=== PATIENT | female | born 1970 | race Hispanic/Latino ===

== ENCOUNTER 2016-10-18 17:09 | Inpatient (IN) | payer MEDICAID, OTHER ==
[2016-10-18] MEDS ORDERED: Multivitamin (MVI) 10 ML, Thiamine 100 MG, Folic Acid 1 MG in Sodium Chloride 0.9% 1,00... IV ONE (17:57)
[2016-10-18 18:18] LABS: PH,URINE 6.5 (4.7-8.0); URINE BILIRUBIN NEGATIVE (NEGATIVE); URINE BLOOD MODERATE (NEGATIVE); URINE GLUCOSE (UA) 100 mg/dL (NEGATIVE); URINE KETONE NEGATIVE (NEGATIVE); URINE LEUKOCYTE ESTERASE NEGATIVE Leu/uL (NEGATIVE); URINE PROTEIN TRACE mg/dL (<30 mg/dL); URINE UROBILINOGEN 0.2 E.U./dL (<1 E.U./dL)
[2016-10-18 18:19] LABS: URINE APPEARANCE CLEAR (CLEAR); URINE COLOR YELLOW (YELLOW)
[2016-10-18] MEDS ORDERED: Sodium Chloride 0.9% 1,000 ML IV STA (18:27)
[2016-10-18 18:33] LABS: URINE EPITHELIAL CELLS 0 - 2 /hpf (0-5); URINE WBC 0 - 2 /hpf (0-6)
[2016-10-18 18:37] LABS: BASO # 0.01 K/mm3 (0.0-2.0); BASO % 0.1 % (0.0-3.0); EOS % 0.1 % (1.5-5.0); GRAN # 5.57 (1.4-6.5); GRAN % 78.7 % (50.0-68.0); HEMATOCRIT 37.1 % (36.0-48.0); LYMPH # 1.2 (1.2-3.4); LYMPH % 17.3 % (22.0-35.0); MEAN CELL VOLUME 95.9 fl (80.0-105.0); MEAN CORPUSCULAR HEMOGLOBIN 34.4 pg (25.0-35.0); MEAN CORPUSCULAR HGB CONC 35.8 g/dl (31.0-37.0); MEAN PLATELET VOLUME 9.6 fl (7.0-11.0); MONO # 0.3 (0.1-0.6); MONO % 3.8 % (1.0-6.0); RED CELL DISTRIBUTION WIDTH 13.2 % (11.5-14.5); WHITE BLOOD COUNT 7.1 10^3/ul (4.5-11.0)
[2016-10-18 18:46] LABS: INR 0.93 (0.93-1.08)
[2016-10-18 18:48] LABS: ALB/GLOB RATIO 1.5 (1.1-1.8); ALKALINE PHOSPHATASE 138 U/L (38-126); ALT/SGPT 125 U/L (7-56); AST/SGOT 261 U/L (14-36); BILIRUBIN,TOTAL 0.8 mg/dL (0.2-1.3); BLOOD UREA NITROGEN 6 mg/dL (7-21); CARBON DIOXIDE 26 mmol/L (21-33); GFR AFRICAN-AMERICAN > 60; GLUCOSE,RANDOM 189 mg/dL (70-110); LIPASE 628 U/L (23-300); POTASSIUM 3.9 mmol/L (3.6-5.0); SODIUM 142 mmol/L (132-148); TOTAL PROTEIN 7.9 g/dL (5.8-8.3)
--- NOTE | 2016-10-18 19:07 | RAD ---
HISTORY: PES/ tachycardia . Technique: Single view portable semi erect @ 18:30. COMPARISON: No prior. FINDINGS: LUNGS: No active pulmonary disease. PLEURA: No significant pleural effusion identified, no pneumothorax apparent. CARDIOVASCULAR: Normal. OSSEOUS STRUCTURES: No significant abnormalities. VISUALIZED UPPER ABDOMEN: Normal. OTHER FINDINGS: None. IMPRESSION: No active disease.
--- NOTE | 2016-10-18 19:18 | ED PDOC ---
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 Pt c/o burn to right leg, states she spilled coffee on the leg 2 days ago. denies cp or sob. pt states she has been drinking alcohol for 2 weeks straight. pt states she hasnt been eating. denies dizziness or weakness. pt is c/o depression and SI. no vomiting/diarrhea. no other complaints. (Verona Decker) Past Medical History - Provider Review Nursing Documentation Reviewed: Yes - Travel History Have you recently traveled outside [place] w/in the past 3 mons?: No - Tetanus Immunization Tetanus Immunization: Unknown - Cardiac Hx Hypertension: Yes - Pulmonary Hx Respiratory Disorders: No - Neurological Hx Neurological Disorder: No - HEENT Hx HEENT Disorder: No - Renal Hx Renal Disorder: No - Endocrine/Metabolic Hx Endocrine Disorders: No - Hematological/Oncological Hx Blood Disorders: No - Integumentary Hx Dermatological Disorder: No - Musculoskeletal/Rheumatological Hx Musculoskeletal Disorders: No - Gastrointestinal Hx Gastrointestinal Disorders: No - Genitourinary/Gynecological Hx Genitourinary Disorders: No - Psychiatric Hx Psychophysiologic Disorder: No Hx Substance Use: No - Anesthesia Hx Anesthesia: No <Verona Decker - Last Filed: 10/18/16 20:19> Family/Social History - Physician Review Nursing Documentation Reviewed: Yes Family/Social History: Unknown Family HX Smoking Status: Unknown If Ever Smoked Hx Alcohol Use: Yes Frequency of alcohol use: Daily Hx Substance Use: No <Verona Decker - Last Filed: 10/18/16 20:19> Allergies/Home Meds <Verona Decker - Last Filed: 10/18/16 20:19> <Juan Wood - Last Filed: 10/18/16 21:51> Allergies/Adverse Reactions: Allergies Penicillins Allergy (Verified 10/18/16 17:52) PAIN Home Medications: Home Meds Medication Instructions Recorded Confirmed Clonazepam [Klonopin] 0.5 mg PO 2XW 10/18/16 10/18/16 Review of Systems - Review of Systems Constitutional: absent: Fatigue, Fevers Respiratory: absent: SOB, Cough Cardiovascular: absent: Chest Pain, Palpitations Gastrointestinal: Nausea. absent: Abdominal Pain, Diarrhea, Vomiting Genitourinary Female: absent: Dysuria, Frequency Musculoskeletal: absent: Arthralgias Skin: absent: Rash, Pruritis Neurological: absent: Headache, Dizziness Psychiatric: Anxiety, Depression, Suicidal Ideation <Verona Decker - Last Filed: 10/18/16 20:19> Physical Exam Vital Signs Reviewed: Yes Temperature: Afebrile Blood Pressure: Normal Pulse: Tachycardic Respiratory Rate: Normal Appearance: Positive for: Non-Toxic, Comfortable, Unkept, Cachectic Pain Distress: None Mental Status: Positive for: Alert and Oriented X 3 - Systems Exam Head: Present: Atraumatic Respiratory/Chest: Present: Clear to Auscultation Cardiovascular: Present: Peripheal Pulses Present, Tachycardic Abdomen: Present: Normal Bowel Sounds. No: Tenderness, Distention, Rebound, Guarding Upper Extremity: Present: Normal ROM Lower Extremity: Present: Normal ROM Skin: Present: Warm, Dry, Rashes (there is a blisterning burn noted to the medial aspect of the right thigh without surrounding erythema.) Psychiatric: Present: Alert, Oriented x 3 <Verona Decker - Last Filed: 10/18/16 20:19> Medical Decision Making <Verona Decker - Last Filed: 10/18/16 20:19> <Juan Wood - Last Filed: 10/18/16 21:51> ED Course and Treatment: 10/18/16 19:42 46yr old female with hx of etoh abuse. unkept, cachectic. Tachycardic. CBC platelets of 94 CBC glucose of 189 elevated LFTs Lipase elevated at 628 UA negative leukocytes UDS within normal limits Alcohol level 285 Tylenol level negative Salicylate level negative Chest x-ray shows no infiltrate or effusion EKG shows sinus tachycardia at [address] elevations pt given 2mg ativan IV, NS iv bolus given Banana bag given IV burn to right thigh; cleaned. bacitracin applied. tetanus updated. pt placed on 1:1 for SI pt still tachycardic, with elevated lfts, and elevated lipase will admit to tele. with 1:1 10/18/16 20:[address] Nirmal hicks; accepts admission to tele for tachycardia, elevated lfts, pancreatitis impression; tachycardia, pancreatitis, elevated lfts ,depression with SI admit tele. (Verona Decker) - Lab Interpretations Lab Results: 10/18/16 18:10 10/18/16 18:10 Lab Results 10/18/16 18:10: Phosphorus 2.8, Magnesium 1.8 10/18/16 18:10: WBC 7.1, RBC 3.87, Hgb 13.3, Hct 37.1, MCV 95.9, MCH 34.4, MCHC 35.8, RDW 13.2, Plt Count 94 L, MPV 9.6, Gran % 78.7 H, Lymph % (Auto) 17.3 L, [place] % (Auto) 3.8, Eos % (Auto) 0.1 L, Baso % (Auto) 0.1, Gran # 5.57, Lymph # 1.2, [place] # 0.3, Eos # 0.0, Baso # 0.01 10/18/16 18:10: PT 10.0, INR 0.93, APTT 28.0 10/18/16 18:10: Salicylates < 1 L, Acetaminophen < 10.0 L 10/18/16 18:10: Alcohol, Quantitative 285 H 10/18/16 18:10: Sodium 142, Potassium 3.9, Chloride 99, Carbon Dioxide 26, Anion Gap 21 H, BUN 6 L, Creatinine 0.5, Est GFR ( Amer) > 60, Est GFR ( Non-Af Amer) > 60, Random Glucose 189 H, Calcium 9.0, Total Bilirubin 0.8, AST 261 H, ALT 125 H, Alkaline Phosphatase 138 H, Lactate Dehydrogenase 783 H, Total Creatine Kinase 144, Troponin I < 0.01, Total Protein 7.9, Albumin 4.8, Globulin 3.1, Albumin/Globulin Ratio 1.5, Lipase 628 H 10/18/16 18:05: Urine Opiates Screen Negative, Urine Methadone Screen Negative, Ur Barbiturates Screen Negative, Ur Phencyclidine Scrn Negative, Ur Amphetamines Screen Negative, U Benzodiazepines Scrn Negative, U Oth Cocaine Metabols Negative, U Cannabinoids Screen Negative 10/18/16 18:05: Urine Color Yellow, Urine Appearance Clear, Urine pH 6.5, Ur Specific [place] <= 1.005, Urine Protein Trace H, Urine Glucose (UA) 100 H, Urine Ketones Negative, Urine Blood Moderate H, Urine Nitrate Negative, Urine Bilirubin Negative, Urine Urobilinogen 0.2, Ur Leukocyte Esterase Negative, Urine RBC 1 - 3, Urine WBC 0 - 2, Ur Epithelial Cells 0 - 2, Urine HCG, Qual Negative - RAD Interpretation Radiology Orders: 10/18/16 17:54 CHEST PORTABLE [RAD] Stat - Medication Orders Current Medication Orders: Multivitamins/Vitamin C 10 ml/Thiamine HCl 100 mg/ Folic Acid 1 mg/ Sodium Chloride 1,011.2 mls @ 100 mls/hr IV .Q10H7M ONE Stop: 10/19/16 04:03 Last Admin: 10/18/16 18:49 Dose: 100 mls/hr Lorazepam (Ativan) 2 mg IVP Q4H JARVIS PRN Reason: Protocol Lorazepam (Ativan) 2 mg IVP Q4H PRN; Protocol PRN Reason: Symptoms of alcohol withdrawl Pantoprazole Sodium (Protonix Inj) 40 mg IVP DAILY JARVIS Discontinued Medications Sodium Chloride (Sodium Chloride 0.9%) 1,000 mls @ 999 mls/hr IV .Q1H1M STA Stop: 10/18/16 19:27 Last Admin: 10/18/16 18:29 Dose: 999 mls/hr Levalbuterol HCl (Xopenex) 0.63 mg IH ONCE ONE Stop: 10/18/16 21:27 Lorazepam (Ativan) 1 mg IVP ONCE ONE PRN Reason: Protocol Stop: 10/18/16 17:58 Last Admin: 10/18/16 18:09 Dose: 1 mg Lorazepam (Ativan) 1 mg IVP ONCE ONE PRN Reason: Protocol Stop: 10/18/16 18:28 Last Admin: 10/18/16 18:52 Dose: 1 mg Tetanus/Reduced Diphtheria/Acell Pertussis (Boostrix Vaccine Inj) 0.5 ml IM .ONCE ONE Stop: 10/18/16 19:31 Last Admin: 09/12/17 20:01 Dose: 0.5 ml - 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 / has examined the patient and agrees with the treatment plan. <Juan Wood - Last Filed: 10/18/16 21:51> Disposition/Present on Arrival - Present on Arrival Any Indicators Present on Arrival: No History of DVT/PE: No History of Uncontrolled Diabetes: No Urinary Catheter: No History of Decub. Ulcer: No History Surgical Site Infection Following: None - Disposition Have Diagnosis and Disposition been Completed?: Yes Disposition Time: 20:21 Patient Plan: Admission <Verona Decker - Last Filed: 10/18/16 20:19> <Juan Wood - Last Filed: 10/18/16 21:51> - Disposition Diagnosis: Tachycardia, Pancreatitis, Elevated LFTs, Alcohol intoxication, Depression, Suicidal ideation Disposition: HOSPITALIZED Condition: FAIR
[2016-10-18 19:19] LABS: CHLORIDE 99 mmol/L (98-107); TROPONIN I < 0.01 ng/mL
[2016-10-18] MEDS ORDERED: TDAP Vaccine 0.5 mL Syr IM ONE (19:30)
[2016-10-18 21:19] LABS: MAGNESIUM 1.8 mg/dL (1.7-2.2); PHOSPHOROUS 2.8 mg/dL (2.5-4.5)
[2016-10-18] MEDS ORDERED: Levalbuterol 0.63 MG/3 ML Inhal Soln UD IH ONE (21:26)
--- NOTE | 2016-10-18 21:39 | CP.PCM.HP ---
History of Present Illness - History of Present Illness History of Present Illness: 46 yo female with PMH of depression and ETOH abuse states she was brought in because she had been drinking excessively. She states she has been drinking 4-5 drinks a day for the past 3 weeks and also states she has not been eating. She says she vomited several times yesterday. She also states that she is feeling depressed because she is "poor". In addition, she states she spilled green tea on her right thigh 2 days ago and has a burn. She also states she has dizziness but denies any SOB, Chest pain, cough, nausea, fever, chills, abdominal pain or diarrhea. PMH: depression, ETOH abuse PSH: Medications: Family hx: Social: tobacco: 10 cigarettes a day for past 10 years, alcohol: 3-5 drinks for last 3 weeks, denies any illicit drug use Allergies: PCN Present on Admission - Present on Admission Any Indicators Present on Admission: No Review of Systems - Constitutional Constitutional: absent: Chills, Excessive Sweating - EENT Eyes: absent: Change in Vision Ears: absent: Decreased Hearing - Cardiovascular Cardiovascular: absent: Chest Pain, Dyspnea - Respiratory Respiratory: absent: Cough - Gastrointestinal Gastrointestinal: Vomiting. absent: Abdominal Pain, Diarrhea - Musculoskeletal Musculoskeletal: absent: Numbness, Tingling - Neurological Neurological: Dizziness. absent: Tingling - Psychiatric Psychiatric: Depression Past Patient History - Tetanus Immunizations Tetanus Immunization: Unknown - Past Social History Smoking Status: Heavy Smoker > 10 Cigarettes Daily Alcohol: > 2 Drinks/Day Drugs: Denies - CARDIAC Hx Hypertension: Yes - PULMONARY Hx Respiratory Disorders: No - NEUROLOGICAL Hx Neurological Disorder: No - HEENT Hx HEENT Problems: No - RENAL Hx Chronic Kidney Disease: No - ENDOCRINE/METABOLIC Hx Endocrine Disorders: No - HEMATOLOGICAL/ONCOLOGICAL Hx Blood Disorders: No - INTEGUMENTARY Hx Dermatological Problems: No - MUSCULOSKELETAL/RHEUMATOLOGICAL Hx Musculoskeletal Disorders: No - GASTROINTESTINAL Hx Gastrointestinal Disorders: No - GENITOURINARY/GYNECOLOGICAL Hx Genitourinary Disorders: No - PSYCHIATRIC Hx Psychophysiologic Disorder: No Hx Substance Use: No - SURGICAL HISTORY Hx Surgeries: No - ANESTHESIA Hx Anesthesia: No Meds Allergies/Adverse Reactions: Allergies Allergy/AdvReac Type Severity Reaction Status Date / Time Penicillins Allergy PAIN Verified 10/18/16 17:52 Physical Exam - Constitutional Appears: Cachectic Additional comments: unkempt - Head Exam Head Exam: ATRAUMATIC, NORMAL INSPECTION, NORMOCEPHALIC - Eye Exam Eye Exam: EOMI, PERRL Pupil Exam: PERRL - ENT Exam ENT Exam: Mucous Membranes Moist - Neck Exam Neck exam: Positive for: Normal Inspection. Negative for: Lymphadenopathy - Respiratory Exam Respiratory Exam: Decreased Breath Sounds Additional comments: decreased breath sounds on the right upper lobe - Cardiovascular Exam Cardiovascular Exam: REGULAR RHYTHM, +S1, +S2 - GI/Abdominal Exam GI & Abdominal Exam: Normal Bowel Sounds. absent: Guarding, Tenderness - Neurological Exam Neurological exam: Alert, Oriented x3 Additional comments: Tremors in arms bilaterally - Skin Additional comments: 2nd degree burn on inner right thigh Results - Vital Signs Recent Vital Signs: Last Vital Signs Temp 98.3 F 10/18/16 17:42 Pulse 119 H 10/18/16 18:55 Resp 20 10/18/16 18:55 BP 136/94 H 10/18/16 18:55 Pulse Ox 97 10/18/16 18:55 - Labs Result Diagrams: 10/20/16 06:00 10/20/16 06:00 Assessment & Plan - Assessment and Plan (Free Text) Assessment: 46 yo female with PMH of depression and ETOH abuse states she was brought in because she had been drinking excessively. She states she has been drinking 4-5 drinks a day for the past 3 weeks and also states she has not been eating. She says she vomited several times yesterday. She is being treated for alcohol intoxication. Plan: 1. Alcohol Intoxication -Patient has tremors present -Fluids started with banana bag -EKG ordered and obtained, results show Normal Sinus tachycardia with rate of 120, continue to monitor -chest xray ordered and obtained, results show no active disease or consolidation/ infiltrates -Alcohol level of 285 -Started on 2mg Ativan Q4 -CBC and CMP obtained -Magnesium is 1.8 and phosphate is 2.8 -placed on seizure precautions -placed on fall precautions -placed on aspiration precautions -started on zofran for nausea 2. Tachycardia-secondary to alcohol intoxication -HR 114 -continue to monitor vitals 3. Thrombocytopenia-likely secondary to chronic alcohol use -Platelets 94 -repeat labs and monitor 4. Transamintis - likely secondary to chronic alcohol use - AST 261, ALT 125 - Lipase is 628, continue to monitor - repeat and follow liver function 5. 2nd degree burn, due to spilled hot drink -Wound care nurse called for -cleaned wound and applied bacitracin 6. Depression -continue to monitor -psychiatry consulted 6. GI prophylaxis -started on protonix 7. DVT prophylaxis -Heparin
[2016-10-19 07:06] LABS: BASO # 0.01 K/mm3 (0.0-2.0); BASO % 0.2 % (0.0-3.0); EOS # 0.1 (0.0-0.7); EOS % 1.8 % (1.5-5.0); GRAN # 3.56 (1.4-6.5); GRAN % 71.2 % (50.0-68.0); HEMATOCRIT 32.5 % (36.0-48.0); LYMPH # 1.1 (1.2-3.4); LYMPH % 22.6 % (22.0-35.0); MEAN CELL VOLUME 96.2 fl (80.0-105.0); MEAN CORPUSCULAR HEMOGLOBIN 32.8 pg (25.0-35.0); MEAN CORPUSCULAR HGB CONC 34.2 g/dl (31.0-37.0); MEAN PLATELET VOLUME 10.3 fl (7.0-11.0); MONO # 0.2 (0.1-0.6); MONO % 4.2 % (1.0-6.0); RED CELL DISTRIBUTION WIDTH 13.2 % (11.5-14.5)
[2016-10-19 07:19] LABS: ALB/GLOB RATIO 1.4 (1.1-1.8); ALKALINE PHOSPHATASE 105 U/L (38-126); ALT/SGPT 115 U/L (7-56); AST/SGOT 316 U/L (14-36); BILIRUBIN,DIRECT 0.4 mg/dL (0.0-0.4); BILIRUBIN,TOTAL 1.1 mg/dL (0.2-1.3); BLOOD UREA NITROGEN 6 mg/dL (7-21); CARBON DIOXIDE 26 mmol/L (21-33); CHLORIDE 105 mmol/L (98-107); GFR AFRICAN-AMERICAN > 60; GLUCOSE,RANDOM 84 mg/dL (70-110); POTASSIUM 3.7 mmol/L (3.6-5.0); SODIUM 140 mmol/L (132-148)
--- NOTE | 2016-10-19 10:10 | CARD ---
APPROVED REPORT EKG Measurement Heart [id number] <Conclusion> Sinus tachycardia Rightward axis
--- NOTE | 2016-10-19 14:11 | CP.PCM.PN ---
<Hernan Gamez - Last Filed: 10/19/16 14:06> Subjective - Date & Time of Evaluation Date of Evaluation: 10/19/16 Time of Evaluation: 14:06 - Subjective Subjective: Patient has been seen and examined. Thai speaking B2B Sales Manager used for interview. Patient complains of headache, tremor, depression and lower extremity pain at burn site. Denies any Dizziness, A/V/T Hallucinations, SOB, CP , or palpitations. Objective - Vital Signs/Intake and Output Vital Signs (last 24 hours): Temp Pulse Resp BP Pulse Ox 98.6 F 86 19 133/93 H 97 10/19/16 12:00 10/19/16 12:00 10/19/16 12:00 10/19/16 12:00 10/19/16 06:00 Intake and Output: 10/19/16 10/19/16 06:59 18:59 Intake Total 1240 Output Total 300 Balance 940 - Medications Medications: Current Medications Heparin Sodium (Porcine) (Heparin) 5,000 units IVP Q12 JARVIS PRN Reason: Protocol Last Admin: 10/19/16 10:13 Dose: 5,000 units Folic Acid 1 mg/ Thiamine HCl 100 mg/ Multivitamins/Vitamin C 10 ml/ Dextrose 1 ,011.2 mls @ 100 mls/hr IV .Q10H7M [facility] Ibuprofen (Motrin Tab) 400 mg PO Q6H PRN PRN Reason: Pain, severe (8-10) Lorazepam (Ativan) 2 mg IVP Q4H PRN; Protocol PRN Reason: Symptoms of alcohol withdrawl Lorazepam (Ativan) 1 mg IVP Q4H JARVIS PRN Reason: Protocol Last Admin: 10/19/16 10:12 Dose: 1 mg Pantoprazole Sodium (Protonix Inj) 40 mg IVP DAILY [facility] Last Admin: 10/19/16 10:13 Dose: 40 mg - Labs Labs: 10/19/16 06:04 10/19/16 06:04 PT 10.0 Seconds (9.9-11.8) 10/18/16 18:10 INR 0.93 (0.93-1.08) 10/18/16 18:10 APTT 28.0 Seconds (23.7-30.8) 10/18/16 18:10 Assessment and Plan - Assessment and Plan (Free Text) Assessment: 46 yo female with PMH of depression and ETOH abuse states she was brought in because she had been drinking excessively. She states she has been drinking 4-5 drinks a day for the past 3 weeks and also states she has not been eating. She says she vomited several times yesterday. She is being treated for alcohol intoxication. Plan: 1. Alcohol Intoxication -CIWA -banana bag -EKG ordered and obtained, results show Normal Sinus tachycardia with rate of 120, continue to monitor -chest xray ordered and obtained, results show no active disease or consolidation/ infiltrates -Alcohol level of 285 on admission. -Started on 2mg Ativan Q4 PRN and 1mg Q4 JARVIS -Magnesium is 1.8 and phosphate is 2.8 on Admission -placed on seizure precautions -placed on fall precautions -placed on aspiration precautions -started on zofran for nausea 2. Tachycardia-secondary to alcohol intoxication -HR 114 -continue to monitor vitals 3. Thrombocytopenia-likely secondary to chronic alcohol use -Platelets 67 -Monitor. 4. Transamintis - likely secondary to chronic alcohol use - AST 316 (up from yesterday), ALT 115 (lower than yesterday) - Lipase is 628, continue to monitor - repeat and follow liver function 5. 2nd degree burn, due to spilled hot drink -Wound care -bacitracin 6. Depression -continue to monitor -psychiatry consulted 6. GI prophylaxis -started on protonix 7. DVT prophylaxis -Heparin Patient seen, reviewed and discussed with Attending Hernan Gamez PGY-1 <Jarrod Preston - Last Filed: 10/19/16 16:47> Objective - Vital Signs/Intake and Output Vital Signs (last 24 hours): Temp Pulse Resp BP Pulse Ox 98.6 F 91 H 19 133/93 H 97 10/19/16 12:00 10/19/16 14:00 10/19/16 12:00 10/19/16 12:00 10/19/16 06:00 Intake and Output: 10/19/16 10/19/16 06:59 18:59 Intake Total 1240 300 Output Total 300 200 Balance 940 100 - Medications Medications: Current Medications Folic Acid (Folic Acid) 1 mg PO DAILY JARVIS Heparin Sodium (Porcine) (Heparin) 5,000 units IVP Q12 JARVIS PRN Reason: Protocol Last Admin: 10/19/16 10:13 Dose: 5,000 units Folic Acid 1 mg/ Thiamine HCl 100 mg/ Multivitamins/Vitamin C 10 ml/ Dextrose 1 ,011.2 mls @ 100 mls/hr IV .Q10H7M [facility] Last Admin: 10/19/16 14:45 Dose: 100 mls/hr Ibuprofen (Motrin Tab) 400 mg PO Q6H PRN PRN Reason: Pain, severe (8-10) Lorazepam (Ativan) 2 mg IVP Q4H PRN; Protocol PRN Reason: Symptoms of alcohol withdrawl Lorazepam (Ativan) 2 mg PO QID JARVIS PRN Reason: Protocol Multivitamins (Thera Tab) 1 tab PO 0800 JARVIS Pantoprazole Sodium (Protonix Inj) 40 mg IVP DAILY [facility] Last Admin: 10/19/16 10:13 Dose: 40 mg Thiamine HCl (Vitamin B1 Tab) 100 mg PO DAILY JARVIS Trazodone HCl (Desyrel) 50 mg PO HS [facility] - Labs Labs: 10/19/16 06:04 10/19/16 06:04 PT 10.0 Seconds (9.9-11.8) 10/18/16 18:10 INR 0.93 (0.93-1.08) 10/18/16 18:10 APTT 28.0 Seconds (23.7-30.8) 10/18/16 18:10 Attending/Attestation - Attestation I have personally seen and examined this patient.: Yes I have fully participated in the care of the patient.: Yes I have reviewed all pertinent clinical information, including history, physical exam and plan: Yes Notes (Text): 10/19/16 16:43 Attending note; Patient seen and examined with resident. Patient is a 46-year-old female admitted with acute alcohol intoxication. Patient with a long-standing history of depression and alcohol abuse. Monitor closely in telemetry. Continue IV Ativan for withdrawal symptoms. Continue IV banana bag. Psychiatric evaluation requested. Patient is currently on one-to-one for suicidal ideation. Right thigh second-degree burn; started on Silvadene cream. Wound care evaluation requested. 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 Patient will be referred to [facility] clinic upon discharge.
[2016-10-19] MEDS: Folic Acid 1 MG, Thiamine 100 MG, Multivitamin (MVI) 10 ML in Dextrose 5% In Water 1,00... IV SCH (14:45)
[2016-10-19] MEDS: Silver Sulfadiazine 1% Cream (25 gm) TP SCH (18:03)
--- NOTE | 2016-10-19 21:32 | CON ---
HISTORY OF PRESENT ILLNESS: The patient is a 46-year-old [place] Islander-speaking female with a long history of alcohol use disorder. The patient was admitted on the medical side for evaluation of alcohol withdrawal symptoms. A psych consult was called for evaluation on depressive symptoms and possible suicidal ideation, which the patient verbalized in the emergency room. The patient is [place]er speaking and this financial underwriter utilized on-demand translation line, [employer], number is [id number]. The patient said that she feels depressed for little long time. The patient said that is why she is drinking. The patient reported that she was drinking about 4 to 5 beers a day, [place]er beer on daily basis and at present moment, the patient has withdrawal symptoms. The patient reported that she felt depressed as well as hopeless, but denied any thoughts of killing herself or others. The patient reported some visual hallucinations which could be related to alcohol withdrawal symptoms. The patient reported that she has a history of being in detox and rehab and the longest period of sobriety is 2 months. Within that 2 months, the patient denied being depressed and the patient denied any visual hallucinations and the patient reported that she was doing just fine. The patient reported that she lives with her sister who supports her from the financial standpoint and emotional standpoint. The patient said that she does not have any thoughts of killing herself. The patient said that she has granddaughter and she cares about her and she will not kill herself because of her. The patient said that she is willing to go AA meetings, but it has to be [place]er-speaking people. The patient denied history of being admitted to the psychiatric inpatient unit, but the patient was on Klonopin in the past. The patient reports that she has history of suicidal attempt, it was 3 years ago. The patient overdosed on medication and never said to anybody about this attempt. The patient adamantly denied that she feels this way during the interview or prior to coming to the hospital. PHYSICAL EXAMINATION: VITAL SIGNS: Reviewed. Temperature 98.6, pulse is 91, blood pressure 133/93, respirations 19, oxygen saturation is 97%. MEDICATIONS: Reviewed. The patient is on heparin, Motrin, Ativan 2 mg IV push for alcohol withdrawal symptoms and Ativan 1 mg IV push q. 4 hours scheduled and Protonix. This financial underwriter will start scheduled dose of p.o. Ativan 2 mg 4 times a day for alcohol withdrawal symptoms with the plan to taper that down by 25% a day. This financial underwriter also will discontinue IV push of Ativan scheduled. This financial underwriter also would implement multivitamins, thiamine 100 mg daily as well as folic acid. This financial underwriter also would implement trazodone 50 mg at the nighttime for insomnia as well as for depressive symptoms. Risks, benefits and alternatives of the medications were discussed with the patient, the patient verbalized understanding. LABORATORY DATA: Labs reviewed. Hematology reviewed: Hemoglobin 11.1 and hematocrit 32.5. Chemistry reviewed: AST and ALT are elevated. Urinalysis showed blood, moderate. Toxicology: Alcohol level was 285. Reports reviewed, discussed with the medical team. MENTAL STATUS EXAMINATION: The patient appears to be very thin adult, depressed looking, very tearful lady which presented to be older than her chronological age. The patient was under productive, low volume, very soft, very hard to hear. Mood described as depressed and hopeless. Affect was tearful. Mood congruent. Thought process was coherent and goal directed. Thought content: The patient denied visual, auditory or tactile hallucinations, but has a history of visual hallucinations when she is withdrawing from the alcohol. The patient denied thoughts of harming herself or others, denied intents or plan. Insight and judgment are limited. Impulses are well controlled. IMPRESSION: Rule out substance-induced mood disorder, rule out major depressive disorder, alcohol withdrawal symptoms. PLAN: 1. Continue current management. Ativan 2 mg 4 times a day scheduled, started. Discontinue IV push of Ativan scheduled, p.r.n. of Ativan will be staying the same. Trazodone was started 50 mg at the nighttime for insomnia and depression. 2. Multivitamins, thiamine and folic acid. 3. 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 4. Discontinue one-to-one. Discussed with the medical team; if the patient will be improving, there is no need for this financial underwriter to follow up on this patient. If the patient will still have depressive symptoms as well as withdrawal symptoms, this financial underwriter will follow the patient up every other day. Thank you very much for letting me participate in the care of your patient. Should they have any questions give me a call back. Araceli Holcomb MD [facility] # [id number]
[2016-10-20] MEDS: Folic Acid 1 MG, Thiamine 100 MG, Multivitamin (MVI) 10 ML in Dextrose 5% In Water 1,00... IV SCH ×4 (00:28→13:10)
[2016-10-20 06:29] LABS: EOS # 0.2 (0.0-0.7); EOS % 3.9 % (1.5-5.0); GRAN # 2.63 (1.4-6.5); GRAN % 63.8 % (50.0-68.0); HEMATOCRIT 35.1 % (36.0-48.0); LYMPH # 1.1 (1.2-3.4); LYMPH % 27.4 % (22.0-35.0); MEAN CELL VOLUME 97.2 fl (80.0-105.0); MEAN CORPUSCULAR HEMOGLOBIN 33.8 pg (25.0-35.0); MEAN CORPUSCULAR HGB CONC 34.8 g/dl (31.0-37.0); MEAN PLATELET VOLUME 10.1 fl (7.0-11.0); MONO # 0.2 (0.1-0.6); MONO % 4.9 % (1.0-6.0); WHITE BLOOD COUNT 4.1 10^3/ul (4.5-11.0)
[2016-10-20 06:58] LABS: BLOOD UREA NITROGEN 3 mg/dL (7-21); CALCIUM 9.1 mg/dL (8.4-10.5); CARBON DIOXIDE 31 mmol/L (21-33); CHLORIDE 96 mmol/L (95-110); GFR AFRICAN-AMERICAN > 60; GLUCOSE,RANDOM 149 mg/dL (70-110); MAGNESIUM 1.5 mg/dL (1.7-2.2); PHOSPHOROUS 2.8 mg/dL (2.5-4.5); POTASSIUM 3.3 mmol/L (3.6-5.0); SODIUM 133 mmol/L (132-148)
[2016-10-20] MEDS ORDERED: Magnesium Sulfate 2 GM in Sodium Chloride 0.9% 100 ML IVPB ONE (08:00)
[2016-10-20] MEDS ORDERED: Potassium Chloride 20 mEq ER Tab PO STA (08:00)
[2016-10-20] MEDS: Multivitamin Therapeutic Tab PO SCH (08:26)
[2016-10-20] MEDS: Silver Sulfadiazine 1% Cream (25 gm) TP SCH ×2 (09:35→18:11)
--- NOTE | 2016-10-20 10:43 | CARD ---
APPROVED REPORT EKG Measurement Heart [id number] <Conclusion> Sinus tachycardia Rightward axis High Voltage-LVH.
--- NOTE | 2016-10-20 12:15 | CP.PCM.PN ---
<CharlyHernan lim - Last Filed: 10/20/16 13:57> Subjective - Date & Time of Evaluation Date of Evaluation: 10/20/16 Time of Evaluation: 12:09 - Subjective Subjective: Patient has been seen and examined. Denies SOB, CP, palpitations,N/V. She had increased bowel and urinary frequency overnight which has resolved. Still complains of tremors. Denies suicidal ideation, or A/V hallucinations. Objective - Vital Signs/Intake and Output Vital Signs (last 24 hours): Temp Pulse Resp BP Pulse Ox 98.4 F 97 H 18 133/90 98 10/20/16 05:59 10/20/16 10:00 10/20/16 05:59 10/20/16 05:59 10/20/16 05:59 Intake and Output: 10/20/16 10/20/16 06:59 18:59 Intake Total 2140 Output Total 3500 Balance -1360 - Medications Medications: Current Medications Folic Acid (Folic Acid) 1 mg PO DAILY [facility] Last Admin: 10/20/16 09:35 Dose: 1 mg Folic Acid 1 mg/ Thiamine HCl 100 mg/ Multivitamins/Vitamin C 10 ml/ Dextrose 1 ,011.2 mls @ 100 mls/hr IV .Q10H7M [facility] Last Admin: 10/20/16 09:15 Dose: Not Given Ibuprofen (Motrin Tab) 400 mg PO Q6H PRN PRN Reason: Pain, severe (8-10) Lorazepam (Ativan) 2 mg IVP Q4H PRN; Protocol PRN Reason: Symptoms of alcohol withdrawl Lorazepam (Ativan) 2 mg PO BID [facility] PRN Reason: Protocol Multivitamins (Thera Tab) 1 tab PO 0800 [facility] Last Admin: 10/20/16 08:26 Dose: 1 tab Nicotine (Nicoderm Cq) 1 patch TD DAILY [facility] Last Admin: 10/20/16 09:36 Dose: 1 patch Pantoprazole Sodium (Protonix Inj) 40 mg IVP DAILY [facility] Last Admin: 10/20/16 09:36 Dose: 40 mg Silver Sulfadiazine (Silvadene 1% 25 Gm) 1 gm TP BID [facility] Last Admin: 10/20/16 09:35 Dose: 1 gm Thiamine HCl (Vitamin B1 Tab) 100 mg PO DAILY [facility] Last Admin: 10/20/16 09:36 Dose: 100 mg Trazodone HCl (Desyrel) 50 mg PO HS [facility] Last Admin: 10/19/16 21:10 Dose: 50 mg - Labs Labs: 10/20/16 06:00 10/20/16 06:00 PT 10.0 Seconds (9.9-11.8) 10/18/16 18:10 INR 0.93 (0.93-1.08) 10/18/16 18:10 APTT 28.0 Seconds (23.7-30.8) 10/18/16 18:10 - Constitutional Appears: Non-toxic, No Acute Distress - Head Exam Head Exam: ATRAUMATIC, NORMAL INSPECTION, NORMOCEPHALIC - Eye Exam Eye Exam: Normal appearance - ENT Exam ENT Exam: Mucous Membranes Moist - Respiratory Exam Respiratory Exam: Clear to Ausculation Bilateral. absent: Rales, Rhonchi, Wheezes, Stridor - Cardiovascular Exam Cardiovascular Exam: Tachycardia, REGULAR RHYTHM, +S1, +S2 - GI/Abdominal Exam GI & Abdominal Exam: Soft. absent: Tenderness, Organomegaly - Extremities Exam Extremities Exam: absent: Pedal Edema - Neurological Exam Additional comments: Tremor - Psychiatric Exam Psychiatric exam: Normal Affect, Normal Mood - Skin Skin Exam: Dry, Intact, Warm Additional comments: 2nd degree burn on R inner thigh. Assessment and Plan - Assessment and Plan (Free Text) Assessment: 46 yo female with PMH of depression and ETOH abuse states she was brought in because she had been drinking excessively. On admission she stated she has been drinking 4-5 drinks a day for the past 3 weeks and also states she has not been eating. She says she vomited several times yesterday. She is being treated for alcohol withdrawal. Plan: 1. Alcohol Intoxication -CIWA -banana bag -EKG today showed Sinus tach -chest xray ordered and obtained, results show no active disease or consolidation/ infiltrates -Alcohol level of 285 on admission. - 2mg Ativan Q4 PRN and 1mg BID [facility] -Magnesium is 1.8 and phosphate is 2.8 on Admission -placed on seizure precautions -placed on fall precautions -placed on aspiration precautions -started on zofran for nausea -Folic Acid, Thiamine, multivitamins added per Psych 2. Tachycardia-secondary to alcohol withdrawal -continue to monitor vitals 3. Thrombocytopenia- likely Heparin induced -Platelets 47 -Monitor. 4. Transamintis and Pancreatitis 2/2 EtoH abuse - likely secondary to chronic alcohol use - AST-208 (up from yesterday), ALT -108 down trending. - Lipase is 628, continue to monitor - repeat and follow liver function -Advance to full liquid diet 5. 2nd degree burn, due to spilled hot drink -Wound care -bacitracin -Trazodone per Psych for insomnia and depression. 6. Depression -continue to monitor -psychiatry consulted 7. GI prophylaxis -started on protonix 7. DVT prophylaxis -Heparin Patient seen, reviewed and discussed with Attending Hernan Gamez PGY-1 <Marty MATRE,[facility] - Last Filed: 10/24/16 17:42> Objective - Vital Signs/Intake and Output Vital Signs (last 24 hours): Temp Pulse Resp BP Pulse Ox 97 F L 78 20 111/75 98 10/24/16 12:00 10/24/16 14:00 10/24/16 12:00 10/24/16 12:00 10/24/16 00:01 Intake and Output: 10/24/16 10/24/16 06:59 18:59 Intake Total 760 Balance 760 - Medications Medications: Current Medications Famotidine (Pepcid) 40 mg PO HS [facility] Last Admin: 10/23/16 21:28 Dose: 40 mg Folic Acid (Folic Acid) 1 mg PO DAILY [facility] Last Admin: 10/24/16 11:42 Dose: 1 mg Lorazepam (Ativan) 2 mg IVP Q4H PRN; Protocol PRN Reason: Symptoms of alcohol withdrawl Last Admin: 10/22/16 18:06 Dose: 2 mg Lorazepam (Ativan) 2 mg PO Q8H [facility] PRN Reason: Protocol Last Admin: 10/24/16 11:42 Dose: 2 mg Multivitamins (Thera Tab) 1 tab PO 0800 [facility] Last Admin: 10/24/16 08:41 Dose: 1 tab Nicotine (Nicoderm Cq) 1 patch TD DAILY [facility] Last Admin: 10/24/16 11:41 Dose: 1 patch Ondansetron HCl (Zofran Inj) 4 mg IVP Q6H PRN PRN Reason: Nausea/Vomiting Silver Sulfadiazine (Silvadene 1% 25 Gm) 1 gm TP BID [facility] Last Admin: 10/24/16 11:41 Dose: 1 gm Thiamine HCl (Vitamin B1 Tab) 100 mg PO DAILY [facility] Last Admin: 10/24/16 11:42 Dose: 100 mg Trazodone HCl (Desyrel) 50 mg PO HS [facility] Last Admin: 10/23/16 21:28 Dose: 50 mg Ziprasidone (Geodon Inj) 20 mg IM TID PRN; Protocol PRN Reason: severe agitaiton Last Admin: 10/22/16 20:48 Dose: 20 mg - Labs Labs: 10/24/16 06:32 10/24/16 06:32 PT 10.0 Seconds (9.9-11.8) 10/18/16 18:10 INR 0.93 (0.93-1.08) 10/18/16 18:10 APTT 28.0 Seconds (23.7-30.8) 10/18/16 18:10 Attending/Attestation - Attestation I have personally seen and examined this patient.: Yes I have fully participated in the care of the patient.: Yes I have reviewed all pertinent clinical information, including history, physical exam and plan: Yes Notes (Text): 10/24/16 17:40 Patient was seen and examined with medical biller coder. 46-year-old female with PMH of long-standing history of depression and alcohol abuse was admitted with acute alcohol intoxication.Patient is found to have elevated LFT due to alcohol abuse.Monitor closely in telemetry. Continue IV Ativan for withdrawal symptoms. Patient is currently on one-to-one for suicidal ideation. Right thigh second-degree burn; started on Silvadene cream. Wound care evaluation requested.
[2016-10-20 13:07] LABS: ALT/SGPT 108 U/L (7-56); AST/SGOT 208 U/L (14-36)
--- NOTE | 2016-10-20 15:03 | US ---
HISTORY: R/O Spleen and Liver pathology COMPARISON: None. TECHNIQUE: Sonographic evaluation of the abdomen. FINDINGS: LIVER: Measures 14.3 cm. Increased echogenicity of the liver parenchyma suggests diffuse fatty infiltration though other etiologies are possible. No mass. No intrahepatic bile duct dilatation. GALLBLADDER: Unremarkable. No gallstones. COMMON BILE DUCT: Measures 3.6 mm. No stones. No dilatation. PANCREAS: There is poor visibility of the pancreas due to extensive overlying bowel gas. RIGHT KIDNEY: Measures 9.9cm. Normal echogenicity. No calculus, mass, or hydronephrosis. LEFT KIDNEY: Measures 10.0cm. Normal echogenicity. No calculus, mass, or hydronephrosis. SPLEEN: Normal in size and contour. No mass. AORTA: No aneurysmal dilatation. IVC: Unremarkable. OTHER FINDINGS: None. IMPRESSION: 1. Diffuse fatty infiltration liver suggested though other etiologies are possible given diffuse increased echogenicity throughout the liver. No focal mass or prominent intrahepatic biliary duct dilatation is identified. 2. Pancreas not identified due to extensive overlying bowel gas. 3. The remainder of the examination appears unremarkable.
[2016-10-20] MEDS: Sodium Chloride 0.9% 1,000 ML IV SCH (18:11)
[2016-10-21] MEDS: Sodium Chloride 0.9% 1,000 ML IV SCH ×4 (04:42→23:12)
[2016-10-21] MEDS: Pantoprazole 40 mg EC Tab PO SCH (04:59)
[2016-10-21 07:22] LABS: BASO # 0.01 K/mm3 (0.0-2.0); BASO % 0.2 % (0.0-3.0); EOS # 0.2 (0.0-0.7); EOS % 4.5 % (1.5-5.0); GRAN # 2.72 (1.4-6.5); GRAN % 61.3 % (50.0-68.0); HEMATOCRIT 32.8 % (36.0-48.0); LYMPH # 1.1 (1.2-3.4); LYMPH % 24.5 % (22.0-35.0); MEAN CELL VOLUME 98.5 fl (80.0-105.0); MEAN CORPUSCULAR HEMOGLOBIN 33.3 pg (25.0-35.0); MEAN CORPUSCULAR HGB CONC 33.8 g/dl (31.0-37.0); MEAN PLATELET VOLUME 11.6 fl (7.0-11.0); MONO # 0.4 (0.1-0.6); MONO % 9.5 % (1.0-6.0); RED CELL DISTRIBUTION WIDTH 12.8 % (11.5-14.5); WHITE BLOOD COUNT 4.4 10^3/ul (4.5-11.0)
[2016-10-21 07:36] LABS: ALB/GLOB RATIO 1.4 (1.1-1.8); ALKALINE PHOSPHATASE 104 U/L (38-126); ALT/SGPT 96 U/L (7-56); AST/SGOT 151 U/L (14-36); BLOOD UREA NITROGEN 8 mg/dL (7-21); CARBON DIOXIDE 28 mmol/L (21-33); CHLORIDE 102 mmol/L (98-107); GFR AFRICAN-AMERICAN > 60; GLUCOSE,RANDOM 100 mg/dL (70-110); MAGNESIUM 1.7 mg/dL (1.7-2.2); PHOSPHOROUS 3.2 mg/dL (2.5-4.5); POTASSIUM 4.2 mmol/L (3.6-5.0); SODIUM 137 mmol/L (132-148); TOTAL PROTEIN 6.3 g/dL (5.8-8.3)
[2016-10-21] MEDS: Multivitamin Therapeutic Tab PO SCH (09:04)
[2016-10-21] MEDS: Silver Sulfadiazine 1% Cream (25 gm) TP SCH ×2 (09:04→17:11)
--- NOTE | 2016-10-21 13:20 | CP.PCM.PN ---
<CharlyHernan lim - Last Filed: 10/21/16 13:16> Subjective - Date & Time of Evaluation Date of Evaluation: 10/21/16 Time of Evaluation: 13:17 - Subjective Subjective: Patient has been seen and examined. She reports increased diarrhea and depressed mood. When asked if she is SOB she said that she is short of breath at time but so is everybody else. She denies suicidal ideation. When asked about audio or visual hallucinations she responded "Last night I had to move out of my apartment". She denies CP, fever,tremors, fatigue, or changes in urination. Objective - Vital Signs/Intake and Output Vital Signs (last 24 hours): Temp Pulse Resp BP Pulse Ox 98.2 F 99 H 20 139/98 H 93 L 10/21/16 06:00 10/21/16 06:00 10/21/16 06:00 10/21/16 06:00 10/21/16 06:00 Intake and Output: 10/21/16 10/21/16 06:59 18:59 Intake Total 3360 Output Total 600 Balance 2760 - Medications Medications: Current Medications Folic Acid (Folic Acid) 1 mg PO DAILY [facility] Last Admin: 10/21/16 09:04 Dose: 1 mg Sodium Chloride (Sodium Chloride 0.9%) 1,000 mls @ 100 mls/hr IV .Q10H [facility] Last Admin: 10/21/16 04:59 Dose: 100 mls/hr Lorazepam (Ativan) 2 mg IVP Q4H PRN; Protocol PRN Reason: Symptoms of alcohol withdrawl Last Admin: 10/21/16 10:40 Dose: 2 mg Lorazepam (Ativan) 2 mg PO BID [facility] PRN Reason: Protocol Last Admin: 10/21/16 09:04 Dose: 2 mg Multivitamins (Thera Tab) 1 tab PO 0800 [facility] Last Admin: 10/21/16 09:04 Dose: 1 tab Nicotine (Nicoderm Cq) 1 patch TD DAILY [facility] Last Admin: 10/21/16 09:05 Dose: 1 patch Ondansetron HCl (Zofran Inj) 4 mg IVP Q6H PRN PRN Reason: Nausea/Vomiting Pantoprazole Sodium (Protonix Ec Tab) 40 mg PO 0600 [facility] Last Admin: 10/21/16 04:59 Dose: 40 mg Silver Sulfadiazine (Silvadene 1% 25 Gm) 1 gm TP BID [facility] Last Admin: 10/21/16 09:04 Dose: 1 gm Thiamine HCl (Vitamin B1 Tab) 100 mg PO DAILY [facility] Last Admin: 10/21/16 09:04 Dose: 100 mg Trazodone HCl (Desyrel) 50 mg PO HS [facility] Last Admin: 10/20/16 21:05 Dose: 50 mg - Labs Labs: 10/21/16 06:40 10/21/16 06:40 PT 10.0 Seconds (9.9-11.8) 10/18/16 18:10 INR 0.93 (0.93-1.08) 10/18/16 18:10 APTT 28.0 Seconds (23.7-30.8) 10/18/16 18:10 - Constitutional Appears: Well, Non-toxic - Head Exam Head Exam: ATRAUMATIC - Eye Exam Eye Exam: Normal appearance - ENT Exam ENT Exam: Mucous Membranes Moist - Respiratory Exam Respiratory Exam: Clear to Ausculation Bilateral - Cardiovascular Exam Cardiovascular Exam: RRR, +S1, +S2 - GI/Abdominal Exam GI & Abdominal Exam: Soft. absent: Tenderness - Extremities Exam Extremities Exam: absent: Pedal Edema - Neurological Exam Neurological Exam: Alert. absent: Oriented x3 Additional comments: disoriented to time - Psychiatric Exam Psychiatric exam: Depressed Assessment and Plan - Assessment and Plan (Free Text) Assessment: 46 yo female with PMH of depression and ETOH abuse states she was brought in because she had been drinking excessively. On admission she stated she has been drinking 4-5 drinks a day for the past 3 weeks and also states she has not been eating. She says she vomited several times yesterday. She is being treated for alcohol withdrawal. Plan: Alcohol Withdrawal -CIWA -EKG today showed Sinus tach -chest xray ordered and obtained, results show no active disease or consolidation/ infiltrates -Alcohol level of 285 on admission. - 2mg Ativan Q4 PRN and 1mg BID [facility] -Magnesium 1.7 | Phos 3.2 today -placed on seizure precautions -placed on fall precautions -place on 1:1 -placed on aspiration precautions -started on zofran for nausea -Folic Acid, Thiamine, multivitamins added per Psych -Psych consulted recs appreciated Thrombocytopenia - likely Heparin induced vs Liver pathology vs mixed -Platelets 43 today -ordered peripheral smear. -Heme consult Tachycardia-secondary to alcohol withdrawal (Stable) -continue to monitor vitals Transamintis and Pancreatitis 2/2 EtoH abuse - likely secondary to chronic alcohol use - LFTs down trending. - repeat and follow liver function -advance to regular soft diet. 2nd degree burn, due to spilled hot drink -Wound care -bacitracin Depression -continue to monitor -psychiatry consulted -Trazodone per Psych for insomnia and depression. -Psych recommends [place] AA meetings -Consider Naltrexone per Psych GI prophylaxis -started on protonix DVT prophylaxis -Heparin Dispo: Withdrawal symptoms have mostly resolved. Patient is still slight confused. Patient still has thrombocytopenia. We will order peripheral smear and consult heme Patient seen, reviewed and discussed with Attending Hernan Gamez PGY-1 <Marty MARTE,[facility] - Last Filed: 10/24/16 17:46> Objective - Vital Signs/Intake and Output Vital Signs (last 24 hours): Temp Pulse Resp BP Pulse Ox 97 F L 78 20 111/75 98 10/24/16 12:00 10/24/16 14:00 10/24/16 12:00 10/24/16 12:00 10/24/16 00:01 Intake and Output: 10/24/16 10/24/16 06:59 18:59 Intake Total 760 Balance 760 - Medications Medications: Current Medications Famotidine (Pepcid) 40 mg PO HS [facility] Last Admin: 10/23/16 21:28 Dose: 40 mg Folic Acid (Folic Acid) 1 mg PO DAILY [facility] Last Admin: 10/24/16 11:42 Dose: 1 mg Lorazepam (Ativan) 2 mg IVP Q4H PRN; Protocol PRN Reason: Symptoms of alcohol withdrawl Last Admin: 10/22/16 18:06 Dose: 2 mg Lorazepam (Ativan) 2 mg PO Q8H [facility] PRN Reason: Protocol Last Admin: 10/24/16 11:42 Dose: 2 mg Multivitamins (Thera Tab) 1 tab PO 0800 [facility] Last Admin: 10/24/16 08:41 Dose: 1 tab Nicotine (Nicoderm Cq) 1 patch TD DAILY [facility] Last Admin: 10/24/16 11:41 Dose: 1 patch Ondansetron HCl (Zofran Inj) 4 mg IVP Q6H PRN PRN Reason: Nausea/Vomiting Silver Sulfadiazine (Silvadene 1% 25 Gm) 1 gm TP BID [facility] Last Admin: 10/24/16 11:41 Dose: 1 gm Thiamine HCl (Vitamin B1 Tab) 100 mg PO DAILY [facility] Last Admin: 10/24/16 11:42 Dose: 100 mg Trazodone HCl (Desyrel) 50 mg PO HS [facility] Last Admin: 10/23/16 21:28 Dose: 50 mg Ziprasidone (Geodon Inj) 20 mg IM TID PRN; Protocol PRN Reason: severe agitaiton Last Admin: 10/22/16 20:48 Dose: 20 mg - Labs Labs: 10/24/16 06:32 10/24/16 06:32 PT 10.0 Seconds (9.9-11.8) 10/18/16 18:10 INR 0.93 (0.93-1.08) 10/18/16 18:10 APTT 28.0 Seconds (23.7-30.8) 10/18/16 18:10 Attending/Attestation - Attestation I have personally seen and examined this patient.: Yes I have fully participated in the care of the patient.: Yes I have reviewed all pertinent clinical information, including history, physical exam and plan: Yes Notes (Text): 10/24/16 17:43 Patient was seen and examined with medical officer. History was taken with the help of marine extension agent. Agreed with resident assessment and plan. Patient with H/O alcohol abuse and depression with alcohol withdrawal, elevated LFT and thrombocytopenia due to alcohol abuse.No splenomegaly on USG. Alcohol withdrawals are improving.She is on 1.1 for risk of fall.Telemetry is unremarkable/ Management plan was discussed in detail with patient Education was provided.
--- NOTE | 2016-10-21 15:15 | CON ---
DATE: 10/21/2016 REASON OF THE CONSULT: Thrombocytopenia. HISTORY OF PRESENT ILLNESS: The patient is a 46-year-old female with past medical history significant for depression, known alcohol abuse, currently admitted with an alcohol intoxication and acute binge drinking. Platelets have not dropped to 42,000. There is no active bleeding. She admits to drinking 45 drinks per day for the past 3 weeks and not eating, therefore she was vomiting and very depressed and admitted to the hospital. Currently undergoing cardiac workup as she complained also of chest pain, shortness of breath and dizziness upon admission. HOME MEDICATIONS: She does not take any medications at home. ALLERGIES: THERE IS NO KNOWN DRUG ALLERGY. SOCIAL HISTORY: Positive for tobacco abuse as well as alcohol abuse. Denies any illicit drug use. FAMILY HISTORY: Noncontributory. REVIEW OF SYSTEMS: As per the HPI. PHYSICAL EXAMINATION: VITAL SIGNS: Reveal a temperature of 98.2, pulse of 100, respiratory rate of 17, and a blood pressure of 135/95. GENERAL: The patient is a middle-aged female lying in bed, in no acute distress. HEAD AND NECK: Normocephalic and atraumatic. Eyes; pupils round and reactive to light and accommodation. Extraocular muscles are intact. There is some pallor. No icterus is noted. NECK: Supple with no adenopathy. No JVD. No thyromegaly. LUNGS: Clear to auscultation bilaterally with no rales or rhonchi. CARDIOVASCULAR: S1 and S2 is heard. ABDOMEN: Positive bowel sounds, soft, nontender, nondistended. No organomegaly is palpated. EXTREMITIES: There is no edema. LABORATORY DATA: Her labs reveal a white count of 4.4, hemoglobin 11.1, hematocrit of 32.8, MCV of 98.5, platelet count of 42,000. Chemistries are within normal limits. Tox screen shows an alcohol level of 285 on admission. ASSESSMENT AND PLAN: Middle-aged female with known alcohol abuse and depression, admitted post acute alcohol intoxication. Platelet counts have dropped secondary to acute alcohol intoxication and bone marrow suppression from alcohol abuse. There is no indication for transfusion. There is no risk of acute bleeding unless platelet counts drop to below 10,000. No workup needed. Platelets should be down once acute alcohol affect has passed. Thank you for the consult. We will follow. Magaly Mckinney MD [facility] # [id number]
--- NOTE | 2016-10-21 16:35 | CP.PCM.PCO ---
Addendum Addendum: 10/21/16 16:33 rn contacted this web content writer reported pt is agitated, confused, anxious, scratched PCP pt is obviously in delirium stage which related to alcohol withdrawals this web content writer will ask to f/u on this pt meds adjusted PRN ordered RN was advised to contact medical team
--- NOTE | 2016-10-22 00:44 | PN ---
DATE: SUBJECTIVE: The patient was followed up today. The patient is Bel[place]an speaking and this telegraphic typewriter repairer utilized on-demand translation system #[id number]. The patient presented better today. Affect is brighter. As per collateral information, the patient was confused overnight. The patient thought that she is at her home. No behavioral incidents. The patient has periods of anxiety, but overall the patient is improving. The patient said that she improves very much. The patient has not been depressed. The patient denied any thoughts of harming herself or others. Denied intents or plan. Withdrawal symptoms are better. This telegraphic typewriter repairer educated the patient about naltrexone as well as about [place] language AA meeting. Contact information was provided. Besides that, there are no acute changes. PHYSICAL EXAMINATION: VITAL SIGNS: Stable, temperature is 98.2, pulse is 100, blood pressure 135/95, respirations 17, oxygen saturation is 93. MEDICATIONS: Reviewed. Folic acid, Ativan as needed, Ativan 2 mg p.o. b.i.d. scheduled, multivitamin, Nicoderm, Zofran, Protonix, thiamine and trazodone 50 mg at the nighttime. MENTAL STATUS EXAMINATION: The patient presented to be alert. pleasant, cooperative, minimizing her alcohol problems, intermittent eye contact. Speech was normal rate, tone quality and quantity. Mood described as "I feel much better." Affect was more reactive, mood congruent. Thought process was coherent and goal directed. Thought content, the patient denied visual, auditory, or tactile hallucinations. Denied paranoid ideation. The patient was confused overnight, but at the moment of the interview, she feels much better. Insight and judgement are fair. Insight into her addiction problems is still limited. Impulses are well predictable, well controlled. IMPRESSION: Rule out substance-induced mood disorder. The patient has alcohol use disorder with withdrawal symptoms. The patient is doing much better. PLAN: Continue current management. The patient is aware of [place] speaking AA meeting. The patient tolerated trazodone well, 50 mg in the nighttime will be recommended. The patient needs to be went off from the Ativan. The patient posed no threat to self or others. This telegraphic typewriter repairer will sign off. Should you have any questions, give me a call back. The patient was educated about naltrexone as well as Vivitrol. residential manager was also advised to educate the patient about this medication. Thank you very much for letting me participate in the care of your patient. Should you have any questions, give me a call back. Araceli Holcomb MD
[2016-10-22] MEDS: Pantoprazole 40 mg EC Tab PO SCH (06:18)
[2016-10-22 07:13] LABS: ALB/GLOB RATIO 1.3 (1.1-1.8); ALKALINE PHOSPHATASE 100 U/L (38-126); ALT/SGPT 141 U/L (7-56); AST/SGOT 224 U/L (14-36); BLOOD UREA NITROGEN 7 mg/dL (7-21); CALCIUM 9.3 mg/dL (8.4-10.5); CARBON DIOXIDE 29 mmol/L (21-33); CHLORIDE 105 mmol/L (98-107); GFR AFRICAN-AMERICAN > 60; GLUCOSE,RANDOM 92 mg/dL (70-110); MAGNESIUM 1.7 mg/dL (1.7-2.2); PHOSPHOROUS 4.8 mg/dL (2.5-4.5); POTASSIUM 3.8 mmol/L (3.6-5.0); SODIUM 144 mmol/L (132-148); TOTAL PROTEIN 6.8 g/dL (5.8-8.3)
[2016-10-22] MEDS: Silver Sulfadiazine 1% Cream (25 gm) TP SCH ×2 (09:41→18:37)
[2016-10-22] MEDS: Multivitamin Therapeutic Tab PO SCH (09:44)
[2016-10-22] MEDS: Sodium Chloride 0.9% 1,000 ML IV SCH ×2 (09:46→21:04)
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
[2016-10-22 11:11] LABS: HEMATOCRIT 33.8 % (36.0-48.0); MEAN CELL VOLUME 101.2 fl (80.0-105.0); MEAN CORPUSCULAR HEMOGLOBIN 34.1 pg (25.0-35.0); MEAN CORPUSCULAR HGB CONC 33.7 g/dl (31.0-37.0); MEAN PLATELET VOLUME 11.2 fl (7.0-11.0); RED CELL DISTRIBUTION WIDTH 13.2 % (11.5-14.5); WHITE BLOOD COUNT 5.1 10^3/ul (4.5-11.0)
--- NOTE | 2016-10-22 21:53 | CON ---
HISTORY OF PRESENT ILLNESS: The patient is a Albanian-speaking 46-year-old female who was being treated on the medical floor for alcohol withdrawal delirium. Psychiatry signed-off on the patient as the patient appeared to be improving. However, was informed yesterday that the patient's recent agitation and combativeness, and Dr. Holcomb requested a followup with the patient today. I attempted to utilize on-demand translation service, however, they do not have any interpreters available at the time of my interview. I utilized the speak [employer]. translation lucila and was able to communicate with the patient in this regard. The patient is currently alert and oriented. She is aware of the circumstances of remission. She indicates that she "had too much drink and ate nothing". She denied having any hallucinations. She denies that her on her, and she does appear to be not responding to internal stimuli during the course of my conversation. Regarding depression, she indicates quite strongly that she wants to live. She does not have any suicidal thoughts. She reports that she does get depressed sometimes. Currently, she is upset about her hospitalization as it is stressful for her but she wants to live. The patient is not agitated or does not appear to be delusional during the course of my conversation. She appears being in good control. She denied any thoughts of trying to harm others and was receptive when I tried to orient her to current circumstances of month, year and request for her cooperation. Insight and judgment are considered to fair at this time. CURRENT MEDICATIONS: Include; Ativan 2 mg IV q. 4 p.r.n. as well as Ativan 2 mg p.o. q. 4 scheduled as well as 1 mg IV q. 2 p.r.n., trazodone 50 mg bedtime, and Geodon 20 mg IM t.i.d. p.r.n. IMPRESSION: Alcohol use disorder with withdrawal delirium as well as contribution of substance-induced mood disorder as well as adjustment disorder with anxiety. RECOMMENDATIONS: We will continue with current treatment and plan. Dr. Holcomb provided me orders yesterday about being informed of the patient's behaviors and it is too early to determine if this medication regimen will be beneficial for the patient's progress. As of this time, we would recommend the medical team taper Ativan as the patient tolerates, while Ativan and benzos in general are extremely beneficial for alcohol withdrawal, please be careful about the quantity provided as benzos can also lead to confusion if a patient receives too much. Continue with Geodon 20 mg IM t.i.d. p.r.n. which patient received 2 doses yesterday. Medical team to continue following the patient for her alcohol withdrawal, confusion and psychiatry will continue to followup with the patient every 2 days to monitor her progress due to the new medication recommendation. If require earlier followup, please feel free to request psychiatric intervention, and we will be happy to meet with the patient again. Murray Banegas MD
[2016-10-23] MEDS: Sodium Chloride 0.9% 1,000 ML IV SCH (05:58)
[2016-10-23 07:01] LABS: ALB/GLOB RATIO 1.2 (1.1-1.8); ALKALINE PHOSPHATASE 92 U/L (38-126); ALT/SGPT 146 U/L (7-56); AST/SGOT 188 U/L (14-36); BILIRUBIN,TOTAL 0.8 mg/dL (0.2-1.3); BLOOD UREA NITROGEN 12 mg/dL (7-21); CALCIUM 8.7 mg/dL (8.4-10.5); CARBON DIOXIDE 28 mmol/L (21-33); CHLORIDE 107 mmol/L (95-110); GFR AFRICAN-AMERICAN > 60; GLUCOSE,RANDOM 91 mg/dL (70-110); POTASSIUM 3.8 mmol/L (3.6-5.0); SODIUM 141 mmol/L (132-148); TOTAL PROTEIN 6.2 g/dL (5.8-8.3)
[2016-10-23 09:03] LABS: HEMATOCRIT 31.7 % (36.0-48.0); MEAN CELL VOLUME 102.9 fl (80.0-105.0); MEAN CORPUSCULAR HEMOGLOBIN 34.1 pg (25.0-35.0); MEAN CORPUSCULAR HGB CONC 33.1 g/dl (31.0-37.0); MEAN PLATELET VOLUME 10.4 fl (7.0-11.0); RED CELL DISTRIBUTION WIDTH 13.7 % (11.5-14.5); WHITE BLOOD COUNT 3.8 10^3/ul (4.5-11.0)
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
[2016-10-23] MEDS: Multivitamin Therapeutic Tab PO SCH (10:56)
[2016-10-23] MEDS: Silver Sulfadiazine 1% Cream (25 gm) TP SCH ×2 (10:57→18:56)
[2016-10-24 07:08] LABS: ALB/GLOB RATIO 1.4 (1.1-1.8); ALKALINE PHOSPHATASE 107 U/L (38-126); ALT/SGPT 139 U/L (7-56); AST/SGOT 148 U/L (14-36); BILIRUBIN,TOTAL 0.4 mg/dL (0.2-1.3); BLOOD UREA NITROGEN 15 mg/dL (7-21); CALCIUM 9.3 mg/dL (8.4-10.5); CARBON DIOXIDE 30 mmol/L (21-33); CHLORIDE 102 mmol/L (98-107); GFR AFRICAN-AMERICAN > 60; GLUCOSE,RANDOM 84 mg/dL (70-110); POTASSIUM 4.2 mmol/L (3.6-5.0); SODIUM 141 mmol/L (132-148); TOTAL PROTEIN 6.3 g/dL (5.8-8.3)
[2016-10-24 07:15] LABS: MEAN CELL VOLUME 102.6 fl (80.0-105.0); MEAN CORPUSCULAR HEMOGLOBIN 33.7 pg (25.0-35.0); MEAN CORPUSCULAR HGB CONC 32.8 g/dl (31.0-37.0); MEAN PLATELET VOLUME 10.6 fl (7.0-11.0); RED CELL DISTRIBUTION WIDTH 13.6 % (11.5-14.5); WHITE BLOOD COUNT 4.7 10^3/ul (4.5-11.0)
[2016-10-24] MEDS: Multivitamin Therapeutic Tab PO SCH (08:41)
[2016-10-24] MEDS: Silver Sulfadiazine 1% Cream (25 gm) TP SCH ×2 (11:41→19:16)
--- NOTE | 2016-10-24 13:28 | PN ---
DATE: SUBJECTIVE: The patient was followed up today. The patient presented to be calmer, was sleeping, easily arousable. As per collateral information from medical staff as well as one to one sitter, the patient had a good night sleep. Yesterday, the patient was not agitated and participating in treatment plan. PHYSICAL EXAMINATION: VITAL SIGNS: Stable, temperature 98.9, pulse 89, blood pressure 129/80, respirations 20, oxygen saturation is 98%. MEDICATIONS: Reviewed. The patient is on Pepcid; Folic acid; Ativan 2 mg IV push q. 4 hours as needed, last dose was on 10/22/2016; Ativan 1 mg IV push q. 2 hours p.r.n. for alcohol withdrawal symptoms; Ativan 2 mg q. 6 hours scheduled for alcohol withdrawals. We can easily start to taper that down. The patient is also on multivitamin, Nicoderm, Zofran, Silvadene, thiamine and trazodone 50 mg at the night as well as Geodon IM 20 mg 3 times a day as needed for agitation, last dose was on 10/22/2016. LABORATORY DATA: Labs were reviewed today. Hemoglobin and hematocrit the same low 10.5 and 32.0. Coagulation reviewed. Chemistry reviewed. AST and ALT is trending down. Toxicology: Alcohol at the time of admission was 285. MENTAL STATUS EXAMINATION: The patient is sleepy, but easily arousable, intermittent eye contact. The patient was under productive low volume. Mood described as better. Affect was reactive, mood congruent. Thought process was coherent and goal directed. Thought content, the patient denied visual, auditory, or tactile hallucinations. Denied paranoid ideation. The patient denied thoughts of harming herself or others, denies intent or plan. Insight and judgment improving. Impulses are well controlled. IMPRESSION: Alcohol withdrawal, delirium with psychosis which is improving. PLAN: Continue current management. Continue current medication. We will start tapering down of Ativan by 15-20% a day, this signwriter decreased the dose of Ativan today to 2 mg three times a day. Multivitamin, thiamine and Folic acid recommended. The patient was provided with information about AA meeting and NA meeting. This signwriter will sign off. Should you have any questions, give me a call back. At present the patient pose no eminent danger to self or others. Araceli Holcomb MD [facility] # [id number]
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
[2016-10-24 23:23] VITALS: RESP 20
[2016-10-25 06:58] LABS: BASO # 0.02 K/mm3 (0.0-2.0); BASO % 0.5 % (0.0-3.0); EOS # 0.2 (0.0-0.7); EOS % 3.8 % (1.5-5.0); GRAN # 1.61 (1.4-6.5); GRAN % 36.3 % (50.0-68.0); HEMATOCRIT 33.2 % (36.0-48.0); LYMPH # 1.5 (1.2-3.4); LYMPH % 34.2 % (22.0-35.0); MEAN CELL VOLUME 102.8 fl (80.0-105.0); MEAN CORPUSCULAR HEMOGLOBIN 33.7 pg (25.0-35.0); MEAN CORPUSCULAR HGB CONC 32.8 g/dl (31.0-37.0); MEAN PLATELET VOLUME 10.1 fl (7.0-11.0); MONO # 1.1 (0.1-0.6); MONO % 25.2 % (1.0-6.0); PLATELET COUNT 198 10^3/uL (120.0-450.0); RED CELL DISTRIBUTION WIDTH 13.7 % (11.5-14.5); WHITE BLOOD COUNT 4.4 10^3/ul (4.5-11.0)
[2016-10-25 07:34] LABS: ALB/GLOB RATIO 1.4 (1.1-1.8); ALKALINE PHOSPHATASE 104 U/L (38-126); ALT/SGPT 151 U/L (7-56); AST/SGOT 106 U/L (14-36); BILIRUBIN,TOTAL 0.3 mg/dL (0.2-1.3); BLOOD UREA NITROGEN 19 mg/dL (7-21); CALCIUM 9.6 mg/dL (8.4-10.5); CARBON DIOXIDE 32 mmol/L (21-33); CHLORIDE 100 mmol/L (98-107); GFR AFRICAN-AMERICAN > 60; GLUCOSE,RANDOM 98 mg/dL (70-110); POTASSIUM 4.8 mmol/L (3.6-5.0); SODIUM 140 mmol/L (132-148); TOTAL PROTEIN 6.8 g/dL (5.8-8.3)
[2016-10-25 08:31] LABS: NEUTROPHIL 45 % (50.0-70.0)
[2016-10-25 08:32] LABS: ANISOCYTOSIS 1+; EOSINOPHIL 3 % (0.0-3.0); HYPOCHROMIA 1+; PLATELET ESTIMATE NORMAL (NORMAL)
[2016-10-25 08:34] LABS: LARGE PLATELETS PRESENT; OVALOCYTES SLIGHT
[2016-10-25 17:24] VITALS: BP 130/88; PULSE 85; TEMP 98.6; O2SAT 98
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
== END 2016-10-25 17:39 | disposition home or self-care (01) | DRG 750 ==
LOC: ED 17:09 → ERH 20:16 → 2RNO 21:49 → 5RSO 10-24 23:11
PROVIDERS: ADMIT Internal Medicine; ATTEND Internal Medicine
DX: F10.231 Alcohol dependence with withdrawal delirium (principal); D69.59 Other secondary thrombocytopenia; R45.851 Suicidal ideations; K85.20 Alcohol induced acute pancreatitis without necrosis or infection; T24.211A Burn of second degree of right thigh, initial encounter; X10.0XXA Contact with hot drinks, initial encounter; R44.3 Hallucinations, unspecified; I10 Essential (primary) hypertension; F32.9 Major depressive disorder, single episode, unspecified; F43.22 Adjustment disorder with anxiety; R00.0 Tachycardia, unspecified; R79.89 Other specified abnormal findings of blood chemistry; F17.210 Nicotine dependence, cigarettes, uncomplicated; Z78.1 Physical restraint status; Y93.89 Activity, other specified; Y92.9 Unspecified place or not applicable

== ENCOUNTER 2017-04-19 15:48 | Inpatient (IN) | payer OTHER ==
[2017-04-19 16:04] VITALS: BMI 21.9
--- NOTE | 2017-04-19 16:15 | ED PDOC ---
Arrival/HPI - General Chief Complaint: Alcohol Ingestion Time Seen by Provider: 04/19/17 16:00 Historian: EMS, Wardrobe Coordinator - History of Present Illness Narrative History of Present Illness (Text): 04/19/17 16:10 A 46 year old female, whose denies any past medical history, brought into the emergency department by EMS for alcohol intoxication. EMS reports patient was found sleeping in a restaurant bathroom. 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 Patient reports her last drink was yesterday night. Patient uncooperative, answering limited questions. HPI and ROS limited. 04/23/17 22:41 Time/Duration: Prior to Arrival Past Medical History - Provider Review Nursing Documentation Reviewed: Yes - Infectious Disease Hx of Infectious Diseases: None - Tetanus Immunization Tetanus Immunization: Unknown - Cardiac Hx Hypertension: Yes - Pulmonary Hx Respiratory Disorders: No - Neurological Hx Neurological Disorder: No - HEENT Hx HEENT Disorder: No - Renal Hx Renal Disorder: No - Endocrine/Metabolic Hx Endocrine Disorders: No - Hematological/Oncological Hx Blood Disorders: No - Integumentary Hx Dermatological Disorder: No - Musculoskeletal/Rheumatological Hx Musculoskeletal Disorders: No - Gastrointestinal Hx Gastrointestinal Disorders: No - Genitourinary/Gynecological Hx Genitourinary Disorders: No - Psychiatric Hx Psychophysiologic Disorder: No Hx Substance Use: No - Anesthesia Hx Anesthesia: No Family/Social History - Physician Review Nursing Documentation Reviewed: Yes Family/Social History: No Known Family HX Smoking Status: Heavy Smoker > 10 Cigarettes Daily Hx Alcohol Use: Yes Frequency of alcohol use: Few days per week Hx Substance Use: No Allergies/Home Meds Allergies/Adverse Reactions: Allergies Penicillins Allergy (Verified 10/18/16 17:52) PAIN Home Medications: Home Meds Medication Instructions Recorded Confirmed Clonazepam [Klonopin] 0.5 mg PO 2XW 10/18/16 04/19/17 Review of Systems - Review of Systems Systems not reviewed;Unavailable: Intoxicated Physical Exam Vital Signs Temp Pulse Resp BP Pulse Ox 04/20/17 06:28 97.6 F 87 18 140/89 98 04/19/17 22:30 90 20 122/82 98 04/19/17 20:30 90 20 120/85 97 04/19/17 18:19 97.8 F 88 16 123/87 99 04/19/17 16:35 97.7 F 105 H 18 116/78 98 - Systems Exam Head: Present: Atraumatic, Normocephalic Pupils: Present: PERRL Extroacular Muscles: Present: EOMI Conjunctiva: Present: Normal Mouth: Present: Moist Mucous Membranes Nose (External): Present: Abrasion (old abrasions to bridge of nose) Neck: Present: Normal Range of Motion Respiratory/Chest: Present: Clear to Auscultation, Good Air Exchange. No: Respiratory Distress, Accessory Muscle Use Cardiovascular: Present: Regular Rate and Rhythm, Normal S1, S2. No: Murmurs Abdomen: Present: Normal Bowel Sounds. No: Tenderness, Distention, Peritoneal Signs Upper Extremity: Present: Normal Inspection, Normal ROM. No: Cyanosis, Edema Lower Extremity: Present: Normal Inspection, Normal ROM. No: Edema Skin: Present: Warm, Dry, Normal Color. No: Rashes Psychiatric: Present: Alert Medical Decision Making ED Course and Treatment: 04/19/17 16:10 Impression: A 46 year old female brought in for alcohol intoxication, and depression Plan: -- Labs -- Reassess and disposition Progress Notes: 04/19/17 22:47 Case signed out to Dr. Hillman. Pending Urinalysis and chest xray before PES evaluation 04/23/17 22:43 - Lab Interpretations Microbiology Results: Microbiology Results 04/20/17 00:12 Urine Urine Culture - Final Staphylococcus Aureus Lab Results: 04/19/17 17:00 04/19/17 17:00 Lab Results 04/20/17 00:12: Urine Color Yellow, Urine Appearance Sl cloudy, Urine pH 6.0, Ur Specific [place] >= 1.030, Urine Protein 30 H, Urine Glucose (UA) Negative, Urine Ketones 15 H, Urine Blood Negative, Urine Nitrate Negative, Urine Bilirubin Small H, Urine Urobilinogen 1.0 H, Ur Leukocyte Esterase Negative, Urine RBC 0 - 2, Urine WBC 0 - 2, Ur Epithelial Cells 3 - 4, Calcium Oxalate Crystal Few, Uric Acid Crystals Rare, Urine Bacteria Few 04/19/17 17:00: WBC 8.5 D, RBC 3.34 L, Hgb 12.3, Hct 38.3, MCV 114.7 H D, MCH 36.8 H, MCHC 32.1, RDW 13.8, Plt Count 318, MPV 10.1, Gran % 65.5, Lymph % (Auto ) 24.6, [place] % (Auto) 8.4 H, Eos % (Auto) 0.7 L, Baso % (Auto) 0.8, Gran # 5.54 , Lymph # (Auto) 2.1, [place] # (Auto) 0.7 H, Eos # (Auto) 0.1, Baso # (Auto) 0.07 04/19/17 17:00: Sodium 150 H, Potassium 3.9, Chloride 109 H, Carbon Dioxide 28, Anion Gap 17, BUN 8, Creatinine 0.5 L, Est GFR ( Amer) > 60, Est GFR (Non -Af Amer) > 60, Random Glucose 117 H, Calcium 9.7, Total Bilirubin 0.6, AST 135 H D, ALT 71 H, Alkaline Phosphatase 190 H D, Total Protein 8.1, Albumin 4.3, Globulin 3.8, Albumin/Globulin Ratio 1.1 04/19/17 17:00: Urine Opiates Screen Negative, Urine Methadone Screen Negative, Ur Barbiturates Screen Negative, Ur Phencyclidine Scrn Negative, Ur Amphetamines Screen Negative, U Benzodiazepines Scrn Negative, U Oth Cocaine Metabols Negative, U Cannabinoids Screen Negative 04/19/17 17:00: Alcohol, Quantitative 391 H* 04/19/17 16:30: POC Glucose (mg/dL) 102 I have reviewed the lab results: Yes - RAD Interpretation Radiology Orders: 04/19/17 21:21 CHEST PORTABLE [RAD] Stat 04/20/17 03:54 CHEST W/O CONTRAST [CT] Stat - Medication Orders Current Medication Orders: Discontinued Medications Doxycycline Hyclate (Doryx) 100 mg PO Q12 JARVIS PRN Reason: Protocol Last Admin: 04/23/17 21:21 Dose: 100 mg Folic Acid (Folic Acid) 1 mg PO DAILY JARVIS Last Admin: 04/23/17 09:34 Dose: 1 mg Heparin Sodium (Porcine) (Heparin) 5,000 units SC Q12 JARVIS PRN Reason: Protocol Last Admin: 04/23/17 09:34 Dose: 5,000 units Subcutaneous Administrations Document 04/23/17 09:34 S[facility] (Rec: 04/23/17 09:34 [id number]) Injection Site MAR Injection Site Right Abdomen Charges for Administration # of Subcutaneous Administrations 1 Folic Acid 1 mg/ Thiamine HCl 100 mg/ Multivitamins/Vitamin C 10 ml/ Dextrose 1 ,011.2 mls @ 100 mls/hr IV .Q10H7M PENDING SALE TO [facility] Last Admin: 04/19/17 16:58 Dose: 100 mls/hr eMAR Start Stop Document 04/19/17 16:58 MS (Rec: 04/19/17 17:02 MS [id number]) Intravenous Solution Start Date 04/19/17 Start Time 17:02 Folic Acid 1 mg/ Thiamine HCl 100 mg/ Multivitamins/Vitamin C 10 ml/ Dextrose 1 ,011.2 mls @ 100 mls/hr IV .Q10H7M ONE Stop: 04/20/17 15:51 Last Admin: 04/20/17 18:56 Dose: 100 mls/hr eMAR Start Stop Document 04/20/17 18:56 (Rec: 04/20/17 18:56 [id number]) Intravenous Solution Start Date 04/20/17 Start Time 18:56 Ibuprofen (Motrin Tab) 600 mg PO Q6H PRN PRN Reason: Pain, Mild (1-3) Last Admin: 04/23/17 20:01 Dose: 600 mg MAR Pain/Vitals Document 04/23/17 20:01 RM (Rec: 04/23/17 20:01 RM [id number]) Pain Reassessment Is This A Pain ReAssessment? No Sleep Is patient sleeping during reassessment? No Presence of Pain Presence of Pain Yes Pain Scale Used Pain Scale Used Numeric Location Left, Right or Bilateral Right Pain Location Body Site Shoulder Re-Assess: MAR Pain/Vitals Document 04/23/17 21:01 RM (Rec: 04/23/17 21:21 RM [id number]) Pain Reassessment Is This A Pain ReAssessment? No Sleep Is patient sleeping during reassessment? No Presence of Pain Presence of Pain No Lorazepam (Ativan) 4 mg IVP STAT STA PRN Reason: Protocol Stop: 04/20/17 05:28 Last Admin: 04/20/17 06:12 Dose: 4 mg IVP Administration Document 04/20/17 06:12 SS (Rec: 04/20/17 06:12 SS [facility] [id number] Charges for Administration # of IVP Administrations 1 Lorazepam (Ativan) 4 mg IVP Q4H JARVIS PRN Reason: Protocol Last Admin: 04/21/17 10:27 Dose: 4 mg IVP Administration Document 04/21/17 10:27 LO (Rec: 04/21/17 10:27 LO [facility]) Charges for Administration # of IVP Administrations 1 Behavioural Document 04/21/17 10:27 LO (Rec: 04/21/17 10:27 LO [facility]) Maintenance Maintenance Dose Yes Nonmedicinal Nonmedicinal Interventions Therapeutic Communication Behavior Behavior for Medication: Anxiety Re-Assess: Reassess Psych Meds Document 04/21/17 10:57 LO (Rec: 04/21/17 12:08 LO [id number]) Reassess Psych Med Effective Lorazepam (Ativan) 2 mg IVP Q6H PRN; Protocol PRN Reason: Symptoms of alcohol withdrawl Last Admin: 04/20/17 19:01 Dose: 2 mg IVP Administration Document 04/20/17 19:01 (Rec: 04/20/17 19:01 [id number]) Charges for Administration # of IVP Administrations 1 Behavioural Document 04/20/17 19:01 (Rec: 04/20/17 19:01 [id number]) Nonmedicinal Comment 131/95 87 Lorazepam (Ativan) 3 mg IVP Q6H JARVIS PRN Reason: Protocol Last Admin: 04/22/17 06:09 Dose: 3 mg IVP Administration Document 04/22/17 06:09 RS (Rec: 04/22/17 06:09 RS [id number]) Charges for Administration # of IVP Administrations 1 Behavioural Document 04/22/17 06:09 RS (Rec: 04/22/17 06:09 RS [id number]) Maintenance Maintenance Dose Yes Re-Assess: Reassess Psych Meds Document 04/22/17 06:39 BIR (Rec: 04/22/17 17:25 BIR [id number]) Reassess Psych Med Effective Lorazepam (Ativan) 2 mg IVP Q6H JRAVIS PRN Reason: Protocol Lorazepam (Ativan) 2 mg IVP Q8 JARVIS PRN Reason: Protocol Last Admin: 04/23/17 05:22 Dose: 2 mg IVP Administration Document 04/23/17 05:22 MJ (Rec: 04/23/17 05:22 MJ [id number]) Charges for Administration # of IVP Administrations 1 Behavioural Document 04/23/17 05:22 MJ (Rec: 04/23/17 05:22 MJ [id number]) Maintenance Maintenance Dose Yes Nonmedicinal Nonmedicinal Interventions Redirect Therapeutic Communication Behavior Behavior for Medication: Anxiety Lorazepam (Ativan) 1 mg IVP Q8H JARVIS PRN Reason: Protocol Last Admin: 04/23/17 18:33 Dose: 1 mg IVP Administration Document 04/23/17 18:33 SOUSV (Rec: 04/23/17 18:33 [id number]) Charges for Administration # of IVP Administrations 1 Behavioural Document 04/23/17 18:33 S[facility] (Rec: 04/23/17 18:33 [id number]) Maintenance Maintenance Dose No Nonmedicinal Nonmedicinal Interventions Redirect Therapeutic Communication Behavior Behavior for Medication: Anxiety Behavior Comment mild tremors Multivitamins (Thera Tab) 1 tab PO 0800 PENDING SALE TO [facility] Last Admin: 04/23/17 09:34 Dose: 1 tab Multivitamins/Minerals (Therapeutic-M Tab) 1 tab PO 0800 PENDING SALE TO [facility] Last Admin: 04/21/17 08:31 Dose: 1 tab Nicotine (Nicoderm Cq) 1 patch TD DAILY PENDING SALE TO [facility] Last Admin: 04/23/17 09:34 Dose: 1 patch MAR Transdermal Patch Site Document 04/23/17 09:34 SOUSV (Rec: 04/23/17 09:35 [facility] [place] [facility]) Transdermal Patch Site Transdermal Patch Site Right Shoulder Ondansetron HCl (Zofran Inj) 4 mg IVP Q4H PRN PRN Reason: Nausea/Vomiting Pantoprazole Sodium (Protonix Ec Tab) 40 mg PO 0600 PENDING SALE TO [facility] Last Admin: 04/23/17 05:22 Dose: 40 mg Thiamine HCl (Vitamin B1 Tab) 100 mg PO DAILY PENDING SALE TO [facility] Last Admin: 04/23/17 09:34 Dose: 100 mg - Scribe Statement The provider has reviewed the documentation as recorded by the Tatianaibjuan diego Newton Provider Scribe Attestation: All medical record entries made by the Scribe were at my direction and personally dictated by me. I have reviewed the chart and agree that the record accurately reflects my personal performance of the history, physical exam, medical decision making, and the department course for this patient. I have also personally directed, reviewed, and agree with the discharge instructions and disposition. Disposition/Present on Arrival - Present on Arrival Any Indicators Present on Arrival: No History of DVT/PE: No History of Uncontrolled Diabetes: No Urinary Catheter: No History of Decub. Ulcer: No History Surgical Site Infection Following: None - Disposition Have Diagnosis and Disposition been Completed?: Yes Diagnosis: Alcohol withdrawal, Depression Disposition: HOSPITALIZED Disposition Time: 18:00 Patient Plan: Transfer To (next attending) Condition: STABLE
[2017-04-19] MEDS ORDERED: Folic Acid 1 MG, Thiamine 100 MG, Multivitamin (MVI) 10 ML in Dextrose 5% In Water 1,00... IV SCH (16:30)
[2017-04-19 17:24] LABS: BASO # 0.07 K/mm3 (0.0-2.0); BASO % 0.8 % (0.0-3.0); EOS # 0.1 (0.0-0.7); EOS % 0.7 % (1.5-5.0); GRAN # 5.54 (1.4-6.5); GRAN % 65.5 % (50.0-68.0); HEMOGLOBIN 12.3 g/dL (12.0-16.0); LYMPH # 2.1 (1.2-3.4); LYMPH % 24.6 % (22.0-35.0); MEAN CORPUSCULAR HEMOGLOBIN 36.8 pg (25.0-35.0); MEAN CORPUSCULAR HGB CONC 32.1 g/dl (31.0-37.0); MEAN PLATELET VOLUME 10.1 fl (7.0-11.0); MONO # 0.7 (0.1-0.6); MONO % 8.4 % (1.0-6.0); RBC 3.34 10^6/uL (3.5-6.1); RED CELL DISTRIBUTION WIDTH 13.8 % (11.5-14.5); WHITE BLOOD COUNT 8.5 10^3/ul (4.5-11.0)
[2017-04-19 17:27] LABS: ALB/GLOB RATIO 1.1 (1.1-1.8); ALBUMIN 4.3 g/dL (3.0-4.8); ALT/SGPT 71 U/L (7-56); AST/SGOT 135 U/L (14-36); BLOOD UREA NITROGEN 8 mg/dL (7-21); CALCIUM 9.7 mg/dL (8.4-10.5); GFR AFRICAN-AMERICAN > 60; GFR NON-AFRICAN AMERICAN > 60
[2017-04-19 17:39] LABS: BARBITURATES, UR NEGATIVE (NEGATIVE); BENZODIAZEPINES, UR NEGATIVE (NEGATIVE); OPIATES, UR NEGATIVE (NEGATIVE); PHENCYCLIDINE, UR NEGATIVE (NEGATIVE)
[2017-04-19 17:54] LABS: MEAN CELL VOLUME 114.7 fl (80.0-105.0)
--- NOTE | 2017-04-19 22:56 | ED PDOC ---
Physical Exam Vital Signs Reviewed: Yes Vital Signs Temp Pulse Resp BP Pulse Ox 04/19/17 18:19 97.8 F 88 16 123/87 99 04/19/17 16:35 97.7 F 105 H 18 116/78 98 Temperature: Afebrile Blood Pressure: Normal Pulse: Tachycardic Respiratory Rate: Normal Appearance: Positive for: Well-Appearing, Non-Toxic, Comfortable Pain Distress: None Mental Status: Positive for: Alert and Oriented X 3 Finger Stick Blood Glucose: 102 Medical Decision Making ED Course and Treatment: 04/19/17 22:55 Case signed out to me by Dr. Medel. Pending Urinalysis and chest xray before PES clearance. 04/20/17 03:52 Patient is complaining of right sided chest pain. Patient is tender along rib 4 and 5 in mid axillary line. 04/20/17 04:55 Patient states she drinks alcohol because she feels hopeless, helpless, has no support. Patient was recently kicked out of her sister's house and currently lives with a man friend, who doesn't support her emotionally. Patient buys shot bottles, 20-40 bottles a week, drinks 5 shots a day. Patient has been through detox once before, patient was sober for a year afterwards. Patient is shaky during withdrawals, never had dts. CT Chest Without Intravenous Contrast FINDINGS: No evidence of vascular injury. No pneumothorax. No effusions. There is a large complex bullae in the left lower lung. No pulmonary contusions. There is very slight depression of the superior endplates of the fourth and fifth thoracic vertebrae likely chronic. No actual break in cortex identified. No rib fractures. IMPRESSION: Minimal depression fourth and fifth vertebrae felt to likely be chronic. Thank you for allowing us to participate in the care of your patient. Dictated and Authenticated by: Jesica Martinez MD 04/20/2017 5:40 AM Eastern Time ([place] & [place]) - Lab Interpretations Lab Results: 04/19/17 17:00 04/19/17 17:00 Lab Results 04/20/17 00:12: Urine Color Yellow, Urine Appearance Sl cloudy, Urine pH 6.0, Ur Specific [place] >= 1.030, Urine Protein 30 H, Urine Glucose (UA) Negative, Urine Ketones 15 H, Urine Blood Negative, Urine Nitrate Negative, Urine Bilirubin Small H, Urine Urobilinogen 1.0 H, Ur Leukocyte Esterase Negative, Urine RBC 0 - 2, Urine WBC 0 - 2, Ur Epithelial Cells 3 - 4, Calcium Oxalate Crystal Few, Uric Acid Crystals Rare, Urine Bacteria Few 04/19/17 17:00: WBC 8.5 D, RBC 3.34 L, Hgb 12.3, Hct 38.3, MCV 114.7 H D, MCH 36.8 H, MCHC 32.1, RDW 13.8, Plt Count 318, MPV 10.1, Gran % 65.5, Lymph % (Auto ) 24.6, [place] % (Auto) 8.4 H, Eos % (Auto) 0.7 L, Baso % (Auto) 0.8, Gran # 5.54 , Lymph # (Auto) 2.1, [place] # (Auto) 0.7 H, Eos # (Auto) 0.1, Baso # (Auto) 0.07 04/19/17 17:00: Sodium 150 H, Potassium 3.9, Chloride 109 H, Carbon Dioxide 28, Anion Gap 17, BUN 8, Creatinine 0.5 L, Est GFR ( Amer) > 60, Est GFR (Non -Af Amer) > 60, Random Glucose 117 H, Calcium 9.7, Total Bilirubin 0.6, AST 135 H D, ALT 71 H, Alkaline Phosphatase 190 H D, Total Protein 8.1, Albumin 4.3, Globulin 3.8, Albumin/Globulin Ratio 1.1 04/19/17 17:00: Urine Opiates Screen Negative, Urine Methadone Screen Negative, Ur Barbiturates Screen Negative, Ur Phencyclidine Scrn Negative, Ur Amphetamines Screen Negative, U Benzodiazepines Scrn Negative, U Oth Cocaine Metabols Negative, U Cannabinoids Screen Negative 04/19/17 17:00: Alcohol, Quantitative 391 H* 04/19/17 16:30: POC Glucose (mg/dL) 102 I have reviewed the lab results: Yes - RAD Interpretation Radiology Orders: 04/19/17 21:21 CHEST PORTABLE [RAD] Stat 04/20/17 03:54 CHEST W/O CONTRAST [CT] Stat - Medication Orders Current Medication Orders: Folic Acid (Folic Acid) 1 mg PO DAILY JARVIS Folic Acid 1 mg/ Thiamine HCl 100 mg/ Multivitamins/Vitamin C 10 ml/ Dextrose 1 ,011.2 mls @ 100 mls/hr IV .Q10H7M JARVIS Last Admin: 04/19/17 16:58 Dose: 100 mls/hr eMAR Start Stop Document 04/19/17 16:58 MS (Rec: 04/19/17 17:02 MS [id number]) Intravenous Solution Start Date 04/19/17 Start Time 17:02 Lorazepam (Ativan) 4 mg IVP Q4H JARVIS PRN Reason: Protocol Lorazepam (Ativan) 2 mg IVP Q6H PRN; Protocol PRN Reason: Symptoms of alcohol withdrawl Multivitamins/Minerals (Therapeutic-M Tab) 1 tab PO 0800 JARVIS Nicotine (Nicoderm Cq) 1 patch TD DAILY JARVIS Ondansetron HCl (Zofran Inj) 4 mg IVP Q4H PRN PRN Reason: Nausea/Vomiting Thiamine HCl (Vitamin B1 Tab) 100 mg PO DAILY JARVIS Discontinued Medications Lorazepam (Ativan) 4 mg IVP STAT STA PRN Reason: Protocol Stop: 04/20/17 05:28 - PA / PROGRAMMER / Resident Statement MD/DO has reviewed & agrees with the documentation as recorded. - Scribe Statement The provider has reviewed the documentation as recorded by the Rhea Hylton Provider Scribe Attestation: All medical record entries made by the Rhea were at my direction and personally dictated by me. I have reviewed the chart and agree that the record accurately reflects my personal performance of the history, physical exam, medical decision making, and the department course for this patient. I have also personally directed, reviewed, and agree with the discharge instructions and disposition. Disposition/Present on Arrival - Present on Arrival Any Indicators Present on Arrival: No History of DVT/PE: No History of Uncontrolled Diabetes: No Urinary Catheter: No History of Decub. Ulcer: No History Surgical Site Infection Following: None - Disposition Have Diagnosis and Disposition been Completed?: Yes Diagnosis: Alcohol withdrawal, Depression Disposition: HOSPITALIZED Disposition Time: 05:04 Patient Plan: Admission Patient Problems: Current Active Problems Problem Status Onset Depression Chronic Alcohol withdrawal Acute Condition: FAIR
[2017-04-20 00:41] LABS: URINE APPEARANCE SL CLOUDY (CLEAR); URINE BILIRUBIN SMALL (NEGATIVE); URINE BLOOD NEGATIVE (NEGATIVE); URINE COLOR YELLOW (YELLOW); URINE GLUCOSE (UA) NEGATIVE (NEGATIVE); URINE LEUKOCYTE ESTERASE NEGATIVE Leu/uL (NEGATIVE); URINE PROTEIN 30 mg/dL (<30 mg/dL)
[2017-04-20 00:45] LABS: URINE BACTERIA FEW (NEG); URINE CALCIUM OXALATE CRYSTALS FEW /hpf; URINE RBC 0 - 2 /hpf (0-2); URINE WBC 0 - 2 /hpf (0-6)
[2017-04-20 00:46] LABS: URINE URIC ACID CRYSTALS RARE /hpf
--- NOTE | 2017-04-20 05:40 | CT ---
EXAM: CT Chest Without Intravenous Contrast EXAM DATE/TIME: 04/20/2017 3:54 AM CLINICAL HISTORY: 46 years old, female; Pain; Chest pain; Additional info: ? Rib fractures upper left chest TECHNIQUE: Axial computed tomography images of the chest without intravenous contrast. All CT scans at this facility use one or more dose reduction techniques, viz.: automated exposure control; ma/kV adjustment per patient size (including targeted exams where dose is matched to indication; i.e. head); or iterative reconstruction technique. Coronal and sagittal reformatted images were created and reviewed. COMPARISON: DX - CHEST PORTABLE 2017-04-19 23:28 FINDINGS: No evidence of vascular injury. No pneumothorax. No effusions. There is a large complex bullae in the left lower lung. No pulmonary contusions. There is very slight depression of the superior endplates of the fourth and fifth thoracic vertebrae likely chronic. No actual break in cortex identified. No rib fractures. IMPRESSION: Minimal depression fourth and fifth vertebrae felt to likely be chronic.
[2017-04-20] MEDS ORDERED: Folic Acid 1 MG, Thiamine 100 MG, Multivitamin (MVI) 10 ML in Dextrose 5% In Water 1,00... IV ONE (05:45)
--- NOTE | 2017-04-20 05:57 | CP.PCM.HP ---
History of Present Illness - History of Present Illness History of Present Illness: Nelson Mona PGY1 H&P Note for Hospitalist Service cc: brought in drunk by EMS Ms. Alamo is a 46 yo Nigerien-speaking female with a PMH of ETOH abuse, tobacco use, depression and anxiety brought in by EMS after being found drunk and sleeping in a restaurant. Translation was provided by phone problem manager # [id number]. The patient states that she only remembers being home yesterday when she had 5 alcoholic drinks, and doesn't recall leaving the house. She states that she normally drinks 5 "small" bottles of whiskey/vodka daily. she does experience tremors but hasn't gone through withdrawals before and denies any seizure activity. her last detox rehab program was >1yr ago. she states that she is depressed but denies thoughts or attempts of harming herself or others. she states that she lives with a friend. she denies any drug use. she states that she sometimes sees creatures and hears voices, but cannot recall what they say. She states that she takes Xanax prescribed by Dr. Akiko Fishman. She also states she has right rib pain and nausea/vomiting but denies any SOB, Chest pain , headache, cough, recent illness, fever, chills, abdominal pain or diarrhea. PMH: as above PSH: none Medications: Xanax Family hx: non-contributory Social: tobacco: 20 cigarettes a day, alcohol: 5 drinks (vodka/whiskey) daily, denies any illicit drug use, doesn't work, lives w/ friend Allergies: PCN Present on Admission - Present on Admission Any Indicators Present on Admission: No Review of Systems - Review of Systems All systems: reviewed and no additional remarkable complaints except (as per HPI ) Past Patient History - Infectious Disease Hx of Infectious Diseases: None - Tetanus Immunizations Tetanus Immunization: Unknown - Past Social History Smoking Status: Heavy Smoker > 10 Cigarettes Daily Alcohol: > 2 Drinks/Day Drugs: Denies Home Situation {Lives}: Friends - CARDIAC Hx Cardiac Disorders: No - PULMONARY Hx Respiratory Disorders: No Hx Tuberculosis: No - NEUROLOGICAL Hx Neurological Disorder: No HX Cerebrovascular Accident: No Hx Seizures: No - HEENT Hx HEENT Problems: No - RENAL Hx Chronic Kidney Disease: No - ENDOCRINE/METABOLIC Hx Endocrine Disorders: No - HEMATOLOGICAL/ONCOLOGICAL Hx Blood Disorders: No Hx Cancer: No Hx Human Immunodeficiency Virus (HIV): No - INTEGUMENTARY Hx Dermatological Problems: No - MUSCULOSKELETAL/RHEUMATOLOGICAL Hx Musculoskeletal Disorders: No - GASTROINTESTINAL Hx Gastrointestinal Disorders: No - GENITOURINARY/GYNECOLOGICAL Hx Sexually Transmitted Disorders: No - PSYCHIATRIC Hx Psychophysiologic Disorder: No Hx Anxiety: Yes Hx Depression: Yes Hx Substance Use: No - SURGICAL HISTORY Hx Surgeries: No - ANESTHESIA Hx Anesthesia: No Meds Allergies/Adverse Reactions: Allergies Allergy/AdvReac Type Severity Reaction Status Date / Time Penicillins Allergy PAIN Verified 10/18/16 17:52 Physical Exam - Constitutional Appears: Well, Non-toxic, No Acute Distress - Head Exam Head Exam: NORMAL INSPECTION, NORMOCEPHALIC Additional comments: nose with abrasions - Eye Exam Eye Exam: EOMI, Normal appearance - ENT Exam ENT Exam: Mucous Membranes Dry - Neck Exam Neck exam: Positive for: Normal Inspection - Respiratory Exam Respiratory Exam: Clear to Auscultation Bilateral, NORMAL BREATHING PATTERN. absent: Rales, Rhonchi, Wheezes, Respiratory Distress Additional comments: no rib cage tenderness noted on exam - Cardiovascular Exam Cardiovascular Exam: RRR, +S1, +S2 - GI/Abdominal Exam GI & Abdominal Exam: Normal Bowel Sounds, Soft. absent: Distended, Tenderness - Extremities Exam Extremities exam: Positive for: full ROM, normal inspection. Negative for: pedal edema Additional comments: tremor at rest and worsened w/ outstretched hands - Back Exam Back exam: NORMAL INSPECTION. absent: vertebral tenderness - Neurological Exam Neurological exam: Alert, Oriented x3 - Psychiatric Exam Psychiatric exam: Anxious - Skin Skin Exam: Normal Color, Warm Additional comments: piloerector response L knee, L knuckles and nose all have superficial abrasions Results - Vital Signs Recent Vital Signs: Last Vital Signs Temp 97.8 F 04/19/17 18:19 Pulse 88 04/19/17 18:19 Resp 16 04/19/17 18:19 BP 123/87 04/19/17 18:19 Pulse Ox 99 04/19/17 18:19 - Labs Result Diagrams: 04/19/17 17:00 04/19/17 17:00 Assessment & Plan - Assessment and Plan (Free Text) Assessment: 46 yo Nigerien-speaking female with a PMH of ETOH abuse, tobacco use, depression and anxiety brought in by EMS after being found drunk and sleeping in a restaurant. ETOH level is elevated but UDS is negative. Patient currently stable but prior chart review notes periods of agitation requiring 1:1 sitter and escalation of medication for DT's. Plan: 1. Alcohol abuse/withdrawals - banana bag x1 ordered then folic acid, MV and thiamine - [facility] protocol - Ativan 4mg IVP STAT - Ativan 4mg Q4 JARVIS and 2mg Q6 PRN - once LFT's normalize, can start librium - EKG ordered - CXR was unremarkable - CT Chest ordered to r/o rib fracture, shows minimal depression of ribs 4 and 5 (likely chronic) - Magnesium/phosphate ordered - placed on seizure precautions - placed on fall precautions - zofran prn nausea/vomiting - UA shows ketones likely 2/2 malnutrition - 2. Transamintis - likely secondary to chronic alcohol use - INR ordered - avoid nephrotoxic drugs - hep panel ordered - abd US ordered - holding librium at this time, but may start once LFTs are downtrending 3. Tobacco abuse - continue education about cessation - nicotine patch 4. Depression/anxiety - denies current suicidal ideations - psychiatry consulted, recs appreciated - holding Xanax at this time, but could start if psych would like - TSH ordered 5. GI prophylaxis -started on protonix 6. DVT prophylaxis -Heparin Patient was seen, examined and discussed with attending, Dr. Yue Dunn PGY1
--- NOTE | 2017-04-20 08:21 | RAD ---
HISTORY: psych COMPARISON: 10/18/2016 FINDINGS: LUNGS: There is opacity at the right lung base. This may represent an infiltrate though this may also be to superimposed breast density. Follow-up advised. Consider PA and lateral chest radiography. This represents interval change from prior examination. No other abnormal opacity is identified. PLEURA: No significant pleural effusion identified, no pneumothorax apparent. CARDIOVASCULAR: Normal. OSSEOUS STRUCTURES: No significant abnormalities. VISUALIZED UPPER ABDOMEN: Normal. OTHER FINDINGS: None. IMPRESSION: Abnormal opacity at right base. Possible pneumonia. Consider further evaluation with PA and lateral chest radiography. Follow-up advised.
[2017-04-20 08:25] LABS: MEAN CELL VOLUME 113.5 fl (80.0-105.0); MEAN CORPUSCULAR HEMOGLOBIN 36.2 pg (25.0-35.0); MEAN CORPUSCULAR HGB CONC 31.9 g/dl (31.0-37.0); RBC 3.04 10^6/uL (3.5-6.1); RED CELL DISTRIBUTION WIDTH 13.9 % (11.5-14.5); WHITE BLOOD COUNT 7.3 10^3/ul (4.5-11.0)
[2017-04-20 08:32] LABS: ALB/GLOB RATIO 1.1 (1.1-1.8); ALBUMIN 4.1 g/dL (3.0-4.8); ALT/SGPT 75 U/L (7-56); AST/SGOT 111 U/L (14-36); BLOOD UREA NITROGEN 7 mg/dL (7-21); CALCIUM 9.6 mg/dL (8.4-10.5); GFR AFRICAN-AMERICAN > 60; GFR NON-AFRICAN AMERICAN > 60
[2017-04-20 08:40] LABS: PROTHROMBIN TIME 11.5 SECONDS (9.4-12.5)
--- NOTE | 2017-04-20 09:14 | US ---
HISTORY: LFTs elevated COMPARISON: None. TECHNIQUE: Sonographic evaluation of the abdomen. FINDINGS: LIVER: Measures 18.2 cm. Diffusely increased echogenicity of the liver parenchyma. Consistent with fatty infiltration. No mass. No biliary dilatation. GALLBLADDER: Unremarkable. No gallstones. COMMON BILE DUCT: Measures 8 mm. Mildly dilated, uncertain etiology. No calculus. PANCREAS: Unremarkable as visualized. No mass. No ductal dilatation. RIGHT KIDNEY: Measures 10.6cm. Normal echogenicity. No calculus, mass, or hydronephrosis. LEFT KIDNEY: Measures 11.0cm. Normal echogenicity. No calculus, mass, or hydronephrosis. SPLEEN: Normal in size and contour. No mass. AORTA: No aneurysmal dilatation. IVC: Unremarkable. OTHER FINDINGS: None. IMPRESSION: Minimal dilatation of the common bile duct common nonspecific. No intrahepatic biliary dilatation. Mild hepatomegaly and fatty infiltration of the liver. Otherwise unremarkable examination.
[2017-04-20] MEDS: Multivitamin With Minerals Tab PO SCH (10:05)
[2017-04-20 13:08] LABS: HEPATITIS B SURFACE AG Negative (NEGATIVE)
[2017-04-20 13:14] LABS: HEPATITIS A IGM NEGATIVE (NEGATIVE); HEPATITIS B CORE AB NEGATIVE (NEGATIVE)
[2017-04-20 13:26] LABS: HEPATITIS C ANTIBODY NEGATIVE (NEGATIVE)
--- NOTE | 2017-04-21 00:05 | CON ---
DATE: 04/20/2017 She is being seen today for a consultation. PRESENTATION: The patient is a 46-year-old white female seen at bedside. She was admitted to the hospital on 04/19/2017 for alcohol intoxication. EMS found the patient sleeping in a restaurant bathroom. Patient is [place]ian speaking and had reported her last drink was on the 04/18/2017. Psychiatric consultation was ordered due to alcohol, depression, and anxiety. The patient was seen at bedside and interviewed using [place] car dealer. Patient indicates that she lives with a male friend, rent-free, in his apartment. She indicates they are just friends. There is no kind of romantic relationship with them and she has been living there for 5 months. She does not work. Indicates that there is no abuse. The bueno on her face and hands are due to her falling while drunk. She does not have any insurance or any income. He supports her. Patient has seen a psychiatrist in the past for her alcoholism. She saw one here one time for a year, twice a week. He put her on antidepressants as well as Klonopin. She indicates that the Klonopin was helpful but the sertraline made her dizzy, so she discontinued it. That is the only time she has a seen a psychiatrist. Looking at past records, patient was hospitalized in the past here at [facility] in 10/25/2016. She went through a severe alcohol withdrawal at that time, complete with hallucinations. She was seen by Dr. Holcomb and given followup AA groups in [place] as well as mental health support. Patient did not follow up on any of these. Patient indicates her problems with alcohol started 25 years ago. She has been started when she was 26 years old. She was having some marital difficulties. Her was having an affair and she ended up leaving her children and coming to this country. She has limited contact with her children; they are adults; now she has a grandchild. She talks to them over the phone but not in the recent past. She denies having any kind of a support system at this time. Denies any legal problems. She does have one sister who lives in this country in [place], [place]; their relationship is not good due to patient's alcoholism. Patient grew up in [place]. She was somewhere in the middle of 11 children. She is not really sure what number and 4 of them were sisters. 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 It must be noted here, the patient is a poor historian. Multiple questions have to be asked to elicit a correct answer. Patient is somewhat lethargic but she is not shaky or sweaty. VITAL SIGNS: Her current vital signs are temperature of 98.1, pulse rate of 92, blood pressure of 133/93, respiration of 20 and an O2 sat of 99. MEDICATIONS: In terms of medications, patient is on folic acid, multivitamins and thiamine per alcohol protocol. She additionally is on heparin, lorazepam 2 mg IV push q.6 hours as needed for symptoms of alcohol withdrawal. She has not needed to use the p.r.n., but she is taking Ativan 4 mg IV push every 4 hours and she is on a nicotine patch as well. MENTAL STATUS EXAMINATION: The patient is a little lethargic, but she is aware where she is and what the date is, what the month is. She is cooperative. Her speech rate and volume are within normal limits. Mood is blunted. Affect is constricted. Thoughts are goal directed, but extremely concrete and simplistic. She denies being suicidal or homicidal. Denies any history of suicide attempts or suicidal thoughts. Denies the presence of hallucinations unless she in withdrawal. She is not having any hallucinations currently. Denies the presence of delusions or paranoia. Her concentration and focus appear poor. Memory both short and skilled nursing is either not good or patient is unable to access easily. Appetite and sleep are poor. Patient is emaciated. DIAGNOSTIC IMPRESSION: Alcohol use disorder, severe, chronic, ongoing with withdrawal. PLAN: Patient denies being suicidal or homicidal and appears in no imminent danger of hurting herself or others; however, she is willing to have some mental health services when discharged. I will get her some referrals for outpatient program that are at hospitals so she can apply for [facility] as well as AA meetings where they speak khmer. Psychiatry will continue to follow. Thank you for the consult. Carleen Dawn APN Araceli Holcomb MD ROSA
[2017-04-21] MEDS: Pantoprazole 40 mg EC Tab PO SCH (05:44)
[2017-04-21 06:25] LABS: HEMOGLOBIN 10.6 g/dL (12.0-16.0); MEAN CELL VOLUME 114.6 fl (80.0-105.0); MEAN CORPUSCULAR HEMOGLOBIN 35.9 pg (25.0-35.0); MEAN CORPUSCULAR HGB CONC 31.4 g/dl (31.0-37.0); MEAN PLATELET VOLUME 10.2 fl (7.0-11.0); RBC 2.95 10^6/uL (3.5-6.1); RED CELL DISTRIBUTION WIDTH 14.1 % (11.5-14.5); WHITE BLOOD COUNT 6.9 10^3/ul (4.5-11.0)
[2017-04-21 06:42] LABS: INR 1.03 (0.93-1.08); PROTHROMBIN TIME 11.8 SECONDS (9.4-12.5)
[2017-04-21 06:58] LABS: ALB/GLOB RATIO 1.1 (1.1-1.8); ALBUMIN 3.4 g/dL (3.0-4.8); ALT/SGPT 56 U/L (7-56); AST/SGOT 74 U/L (14-36); BLOOD UREA NITROGEN 10 mg/dL (7-21); CALCIUM 9.5 mg/dL (8.4-10.5); GFR AFRICAN-AMERICAN > 60; GFR NON-AFRICAN AMERICAN > 60
[2017-04-21] MEDS: Multivitamin With Minerals Tab PO SCH (08:31)
--- NOTE | 2017-04-21 10:38 | CARD ---
APPROVED REPORT EKG Measurement Heart [id number] MD [id number] <Conclusion> Sinus tachycardia NSSTW changes
--- NOTE | 2017-04-21 13:24 | CP.PCM.PN ---
<Moe Varela - Last Filed: 04/21/17 13:19> Subjective - Date & Time of Evaluation Date of Evaluation: 04/21/17 Time of Evaluation: 07:30 - Subjective Subjective: Moe Varela DO PGY1 - IM Progress Note Patient seen and examined at bedside. Per nursing staff, no acute events overnight. Patient is awake, alert, oriented to person, place, and time. Patient complaining of right sided rib pain, worse with deep inhalation and cough. Denies left sided chest pain, shortness of breath, abdominal pain, fever , chills, nausea, vomiting, diarrhea, constipation. Patient denies anxiety or hallucinations. Denies suicidal or homicidal ideation. Objective - Vital Signs/Intake and Output Vital Signs (last 24 hours): Temp Pulse Resp BP Pulse Ox 98.1 F 79 20 121/86 98 04/21/17 08:35 04/21/17 08:35 04/21/17 08:35 04/21/17 08:35 04/21/17 08:35 Intake and Output: 04/21/17 04/21/17 06:59 18:59 Intake Total 900 0 Balance 900 0 - Medications Medications: Current Medications Folic Acid (Folic Acid) 1 mg PO DAILY [facility] Last Admin: 04/21/17 10:27 Dose: 1 mg Heparin Sodium (Porcine) (Heparin) 5,000 units SC Q12 [facility] PRN Reason: Protocol Last Admin: 04/21/17 10:28 Dose: 5,000 units Ibuprofen (Motrin Tab) 600 mg PO Q6H PRN PRN Reason: Pain, Mild (1-3) Lorazepam (Ativan) 2 mg IVP Q6H PRN; Protocol PRN Reason: Symptoms of alcohol withdrawl Last Admin: 04/20/17 19:01 Dose: 2 mg Lorazepam (Ativan) 3 mg IVP Q6H [facility] PRN Reason: Protocol Last Admin: 04/21/17 12:18 Dose: 3 mg Multivitamins (Thera Tab) 1 tab PO 0800 [facility] Nicotine (Nicoderm Cq) 1 patch TD DAILY [facility] Last Admin: 04/21/17 10:28 Dose: 1 patch Ondansetron HCl (Zofran Inj) 4 mg IVP Q4H PRN PRN Reason: Nausea/Vomiting Pantoprazole Sodium (Protonix Ec Tab) 40 mg PO 0600 [facility] Last Admin: 04/21/17 05:44 Dose: 40 mg Thiamine HCl (Vitamin B1 Tab) 100 mg PO DAILY JARVIS Last Admin: 04/21/17 10:28 Dose: 100 mg - Labs Labs: 04/21/17 05:30 04/21/17 05:30 PT 11.8 SECONDS (9.4-12.5) 04/21/17 05:30 INR 1.03 (0.93-1.08) 04/21/17 05:30 - Constitutional Appears: Non-toxic, No Acute Distress - Head Exam Additional comments: Multiple abrasions on bridge of nose, healing. - Eye Exam Eye Exam: EOMI, Normal appearance, PERRL. absent: Conjunctival injection, Periorbital swelling, Periorbital tenderness - ENT Exam ENT Exam: Mucous Membranes Moist - Neck Exam Neck Exam: Normal Inspection - Respiratory Exam Respiratory Exam: Clear to Ausculation Bilateral, NORMAL BREATHING PATTERN - Cardiovascular Exam Cardiovascular Exam: RRR, +S1, +S2. absent: Tachycardia - GI/Abdominal Exam GI & Abdominal Exam: Soft, Normal Bowel Sounds. absent: Tenderness - Extremities Exam Extremities Exam: Full ROM, Normal Inspection. absent: Calf Tenderness, Pedal Edema Additional comments: Left hand with healing abrasions over dorsal aspects of MCPs and PIPs - Neurological Exam Neurological Exam: Alert, Awake, Oriented x3 Neuro motor strength exam: Left Upper Extremity: 5, Right Upper Extremity: 5, Left Lower Extremity: 5, Right Lower Extremity: 5 Additional comments: Gait not assessed Faint tremor No asterixis - Psychiatric Exam Psychiatric exam: Normal Affect, Normal Mood - Skin Skin Exam: Dry, Intact. absent: Diaphoretic Assessment and Plan - Assessment and Plan (Free Text) Assessment: 46 yo Sudanese-speaking female with a PMH of ETOH abuse, tobacco use, depression and anxiety brought in by EMS after being found drunk and sleeping in a restaurant. ETOH level is elevated but UDS is negative. Patient currently stable but prior chart review notes periods of agitation requiring 1:1 sitter and escalation of medication for DT's. Plan: 1. Alcohol abuse/withdrawals - Continue PO MVI, thiamine, folate - [facility] protocol - Decreased Ativan to 3mg Q6 JARVIS; continue 2mg Q6 PRN - seizure precautions; fall precautions - zofran prn nausea/vomiting - Ordered social work consult for chronic alcohol use and possible homelessness 2. Transamintis - likely secondary to chronic alcohol use - Trending down - Viral hep panel negative - Abd US unremarkable - holding librium at this time, but may start once LFTs are downtrending 3. Tobacco abuse - continue education about cessation - nicotine patch 4. Depression/anxiety - denies current suicidal ideations - psychiatry consulted, recs appreciated - holding Xanax at this time, but could start if psych would like - TSH wnl GI/DVT PPx: Heparin and Protonix Patient was seen, examined and discussed with attending, Dr. Hart <Yesika Hart - Last Filed: 04/21/17 15:44> Objective - Vital Signs/Intake and Output Vital Signs (last 24 hours): Temp Pulse Resp BP Pulse Ox 98.1 F 79 20 121/86 98 04/21/17 08:35 04/21/17 08:35 04/21/17 08:35 04/21/17 08:35 04/21/17 08:35 Intake and Output: 04/21/17 04/21/17 06:59 18:59 Intake Total 900 875 Balance 900 875 - Medications Medications: Current Medications Folic Acid (Folic Acid) 1 mg PO DAILY [facility] Last Admin: 04/21/17 10:27 Dose: 1 mg Heparin Sodium (Porcine) (Heparin) 5,000 units SC Q12 J[facility]VIS PRN Reason: Protocol Last Admin: 04/21/17 10:28 Dose: 5,000 units Ibuprofen (Motrin Tab) 600 mg PO Q6H PRN PRN Reason: Pain, Mild (1-3) Lorazepam (Ativan) 2 mg IVP Q6H PRN; Protocol PRN Reason: Symptoms of alcohol withdrawl Last Admin: 04/20/17 19:01 Dose: 2 mg Lorazepam (Ativan) 3 mg IVP Q6H [facility] PRN Reason: Protocol Last Admin: 04/21/17 12:18 Dose: 3 mg Multivitamins (Thera Tab) 1 tab PO 0800 [facility] Nicotine (Nicoderm Cq) 1 patch TD DAILY [facility] Last Admin: 04/21/17 10:28 Dose: 1 patch Ondansetron HCl (Zofran Inj) 4 mg IVP Q4H PRN PRN Reason: Nausea/Vomiting Pantoprazole Sodium (Protonix Ec Tab) 40 mg PO 0600 [facility] Last Admin: 04/21/17 05:44 Dose: 40 mg Thiamine HCl (Vitamin B1 Tab) 100 mg PO DAILY [facility] Last Admin: 04/21/17 10:28 Dose: 100 mg - Labs Labs: 04/21/17 05:30 04/21/17 05:30 PT 11.8 SECONDS (9.4-12.5) 04/21/17 05:30 INR 1.03 (0.93-1.08) 04/21/17 05:30 Attending/Attestation - Attestation I have personally seen and examined this patient.: Yes I have fully participated in the care of the patient.: Yes I have reviewed all pertinent clinical information, including history, physical exam and plan: Yes Notes (Text): 04/21/17 15:38 46 year old female of alcohol abuse and depression who was alcohol intoxication. Currently admitted for alcohol withdrawal symptoms. Continue with ativan jarvis/prn taper. Continue with po multivitamin, folic acid and thiamine. She was counselled on alcohol abstinence. Transaminitis likely secondary to chronic ETOH abuse. LFTs are improving; will continue to monitor. Psychiatry evaluation was appreciated for depression/anxiety. Yesika Hart MD Hospitalist.
--- NOTE | 2017-04-21 17:43 | PN ---
DATE: 04/21/2017 She is being seen today for a followup consultation. PRESENTATION: The patient is a 46-year-old female, seen at bedside. Patient originally came to the hospital on 04/19/2017, because of being found drunk and sleeping in a restaurant bathroom. She was brought in by EMS. Her last drink was the night before, which would have been the 13th. Psychiatric consultation was called on 04/20/2017, due to depression and anxiety and alcoholism. Patient today indicates that she was feeling much better. Physically, she looks better, her color is good, she is more alert, and she is slightly more conversational. An appliance service supervisor was used as the patient is primarily Japanese speaking. Referrals were given for [place] AA groups as well as for [facility] that can help her with her therapy needs to abstain from alcohol. She was given the numbers for [facility] which [facility] of [facility], [facility], which is [facility] of [facility] and [facility], all 3 of which she can apply for [facility] and hopefully get treatment there. I have spoken with the social work staff to see if they can help with actually setting up an appointment for her, although this is not typically what they do. They will try to do this as patient has a language impediment. Patient does indicate that she has a friend who would be willing to help her get appointments. She indicates that she is motivated and she wants to stop drinking. Current vital signs include temperature of 98.1, pulse rate of 79, blood pressure of 121/86, respiratory rate of 20, and O2 sat of 98%. CURRENT MEDICATIONS: Continue with the folic acid and multivitamin as well as thiamine and Nicoderm patch. She continues on lorazepam 3 mg IV push q. 6 hours scheduled and the last time, she needs the p.r.n. of 2 mg IV push, was on the 15 at 1900 hours. MENTAL STATUS EXAMINATION: Patient is alert and oriented x3. Her eye contact is good. Her behavior is cooperative. Speech rate and volume are within normal limits. Mood is blunted. Affect is constricted. Thoughts are goal directed. She denies being suicidal or homicidal. Denies the presence of hallucinations, delusions, or paranoia. Her concentration and focus are improving. Her memory, both short and termite helper, appears to be adequate. Her appetite and sleep are normalizing. DIAGNOSTIC IMPRESSION: Alcohol use disorder, severe, chronic, ongoing, in withdrawal. 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 PLAN: Patient denies being suicidal or homicidal, and patient in no imminent danger of hurting herself or others. She was given referrals for Japanese speaking AA as well as on hospital based therapy programs which client can apply to for [facility] as she has no insurance. Patient says she is willing to follow up, social science professor are aware. Psychiatry was signed off from this patient at this time. Thank you for the consult. Carleen Dawn APN Araceli Holcomb MD
[2017-04-22] MEDS: Pantoprazole 40 mg EC Tab PO SCH (06:09)
[2017-04-22 07:12] LABS: BASO # 0.06 K/mm3 (0.0-2.0); BASO % 0.8 % (0.0-3.0); EOS # 0.2 (0.0-0.7); EOS % 2.2 % (1.5-5.0); GRAN # 5.04 (1.4-6.5); GRAN % 64.7 % (50.0-68.0); HEMOGLOBIN 11.1 g/dL (12.0-16.0); LYMPH # 1.7 (1.2-3.4); LYMPH % 21.9 % (22.0-35.0); MEAN CELL VOLUME 112.9 fl (80.0-105.0); MEAN CORPUSCULAR HEMOGLOBIN 35.8 pg (25.0-35.0); MEAN CORPUSCULAR HGB CONC 31.7 g/dl (31.0-37.0); MEAN PLATELET VOLUME 9.9 fl (7.0-11.0); MONO # 0.8 (0.1-0.6); MONO % 10.4 % (1.0-6.0); RBC 3.1 10^6/uL (3.5-6.1); RED CELL DISTRIBUTION WIDTH 13.9 % (11.5-14.5); WHITE BLOOD COUNT 7.8 10^3/ul (4.5-11.0)
[2017-04-22 07:25] LABS: ALB/GLOB RATIO 1.1 (1.1-1.8); ALBUMIN 3.8 g/dL (3.0-4.8); ALT/SGPT 53 U/L (7-56); AST/SGOT 69 U/L (14-36); BLOOD UREA NITROGEN 9 mg/dL (7-21); CALCIUM 9.6 mg/dL (8.4-10.5); GFR AFRICAN-AMERICAN > 60; GFR NON-AFRICAN AMERICAN > 60
[2017-04-22] MEDS: Multivitamin Therapeutic Tab PO SCH (09:04)
[2017-04-22 14:27] VITALS: RESP 20
--- NOTE | 2017-04-22 16:22 | CP.PCM.PN ---
<Moe Varela - Last Filed: 04/22/17 16:19> Subjective - Date & Time of Evaluation Date of Evaluation: 04/22/17 Time of Evaluation: 07:30 - Subjective Subjective: Moe Varela DO PGY1 - IM Progress Note Patient seen and examined at bedside. Per nursing staff, no acute events overnight. Patient is awake, alert, oriented to person, place, and time. Patient reports that right sided rib pain improved with ibuprofen yesterday. Denies left sided chest pain, shortness of breath, abdominal pain, fever, chills , nausea, vomiting, diarrhea, constipation. Patient denies anxiety or hallucinations. Denies suicidal or homicidal ideation. On ROS, patient admits to dysuria and urinary frequency Objective - Vital Signs/Intake and Output Vital Signs (last 24 hours): Temp Pulse Resp BP Pulse Ox 98.3 F 101 H 20 130/90 100 04/22/17 06:00 04/22/17 14:00 04/22/17 06:00 04/22/17 06:00 04/22/17 06:00 Intake and Output: 04/22/17 04/22/17 06:59 18:59 Intake Total 360 0 Balance 360 0 - Medications Medications: Current Medications Doxycycline Hyclate (Doryx) 100 mg PO Q12 [facility]AR[facility] PRN Reason: Protocol Last Admin: 04/22/17 13:21 Dose: 100 mg Folic Acid (Folic Acid) 1 mg PO DAILY [facility] Last Admin: 04/22/17 09:02 Dose: 1 mg Heparin Sodium (Porcine) (Heparin) 5,000 units SC Q12 JARVIS PRN Reason: Protocol Last Admin: 04/22/17 09:02 Dose: 5,000 units Ibuprofen (Motrin Tab) 600 mg PO Q6H PRN PRN Reason: Pain, Mild (1-3) Last Admin: 04/22/17 09:03 Dose: 600 mg Lorazepam (Ativan) 2 mg IVP Q6H PRN; Protocol PRN Reason: Symptoms of alcohol withdrawl Last Admin: 04/20/17 19:01 Dose: 2 mg Lorazepam (Ativan) 2 mg IVP Q8 JARVIS PRN Reason: Protocol Last Admin: 04/22/17 13:21 Dose: 2 mg Multivitamins (Thera Tab) 1 tab PO 0800 [facility] Last Admin: 03/17/18 09:04 Dose: 1 tab Nicotine (Nicoderm Cq) 1 patch TD DAILY [facility] Last Admin: 04/22/17 09:03 Dose: 1 patch Ondansetron HCl (Zofran Inj) 4 mg IVP Q4H PRN PRN Reason: Nausea/Vomiting Pantoprazole Sodium (Protonix Ec Tab) 40 mg PO 0600 [facility] Last Admin: 04/22/17 06:09 Dose: 40 mg Thiamine HCl (Vitamin B1 Tab) 100 mg PO DAILY [facility] Last Admin: 04/22/17 09:04 Dose: 100 mg - Labs Labs: 04/22/17 06:20 04/22/17 06:20 PT 11.8 SECONDS (9.4-12.5) 04/21/17 05:30 INR 1.03 (0.93-1.08) 04/21/17 05:30 - Additional Findings Additional findings: - Constitutional Appears: Non-toxic, No Acute Distress - Head Exam Additional comments: Multiple abrasions on bridge of nose, healing. - Eye Exam Eye Exam: EOMI, Normal appearance, PERRL. absent: Conjunctival injection, Periorbital swelling, Periorbital tenderness - ENT Exam ENT Exam: Mucous Membranes Moist - Neck Exam Neck Exam: Normal Inspection - Respiratory Exam Respiratory Exam: Clear to Ausculation Bilateral, NORMAL BREATHING PATTERN - Cardiovascular Exam Cardiovascular Exam: RRR, +S1, +S2. absent: Tachycardia - GI/Abdominal Exam GI & Abdominal Exam: Soft, Normal Bowel Sounds. absent: Tenderness - Extremities Exam Extremities Exam: Full ROM, Normal Inspection. absent: Calf Tenderness, Pedal Edema Additional comments: Left hand with healing abrasions over dorsal aspects of MCPs and PIPs - Neurological Exam Neurological Exam: Alert, Awake, Oriented x3 Neuro motor strength exam: Left Upper Extremity: 5, Right Upper Extremity: 5, Left Lower Extremity: 5, Right Lower Extremity: 5 Additional comments: Gait not assessed Faint tremor No asterixis - Psychiatric Exam Psychiatric exam: Normal Affect, Normal Mood - Skin Skin Exam: Dry, Intact. absent: Diaphoretic Assessment and Plan - Assessment and Plan (Free Text) Assessment: 46 yo [place]-speaking female with a PMH of ETOH abuse, tobacco use, depression and anxiety brought in by EMS after being found drunk and sleeping in a restaurant. ETOH level is elevated but UDS is negative. Patient currently stable but prior chart review notes periods of agitation requiring 1:1 sitter and escalation of medication for DT's. Plan: 1. Alcohol abuse/withdrawals - Continue PO MVI, thiamine, folate - CIWA protocol - Decreased Ativan to 2mg Q8 JARVIS; continue 2mg Q6 PRN - seizure precautions; fall precautions - zofran prn nausea/vomiting - Ordered social work consult for chronic alcohol use and possible homelessness - Ordered PT eval and treat for gait assessment and stability 2. Transamintis - likely secondary to chronic alcohol use - Trending down - Viral hep panel negative - Abd US unremarkable 3. Tobacco abuse - continue education about cessation - nicotine patch 4. Depression/anxiety - denies current suicidal ideations - psychiatry consulted, recs appreciated 5. Urinary tract infection - UCx shows gram positive cocci - UA was unremarkable, but patient is symptomatic - Patient is allergic to penicillins; start doxycycline 100mg PO BID, pending sensitivities GI/DVT PPx: Heparin and Protonix Patient was seen, examined and discussed with attending, Dr. Hart <Yesika Hart - Last Filed: 04/22/17 16:44> Objective - Vital Signs/Intake and Output Vital Signs (last 24 hours): Temp Pulse Resp BP Pulse Ox 98.3 F 101 H 20 130/90 100 04/22/17 06:00 04/22/17 14:00 04/22/17 06:00 04/22/17 06:00 04/22/17 06:00 Intake and Output: 04/22/17 04/22/17 06:59 18:59 Intake Total 360 0 Balance 360 0 - Medications Medications: Current Medications Doxycycline Hyclate (Doryx) 100 mg PO Q12 [facility]ARVIS PRN Reason: Protocol Last Admin: 04/22/17 13:21 Dose: 100 mg Folic Acid (Folic Acid) 1 mg PO DAILY [facility] Last Admin: 04/22/17 09:02 Dose: 1 mg Heparin Sodium (Porcine) (Heparin) 5,000 units SC Q12 [facility] PRN Reason: Protocol Last Admin: 04/22/17 09:02 Dose: 5,000 units Ibuprofen (Motrin Tab) 600 mg PO Q6H PRN PRN Reason: Pain, Mild (1-3) Last Admin: 04/22/17 09:03 Dose: 600 mg Lorazepam (Ativan) 2 mg IVP Q6H PRN; Protocol PRN Reason: Symptoms of alcohol withdrawl Last Admin: 04/20/17 19:01 Dose: 2 mg Lorazepam (Ativan) 2 mg IVP Q8 JARVIS PRN Reason: Protocol Last Admin: 04/22/17 13:21 Dose: 2 mg Multivitamins (Thera Tab) 1 tab PO 0800 [facility] Last Admin: 04/22/17 09:04 Dose: 1 tab Nicotine (Nicoderm Cq) 1 patch TD DAILY [facility] Last Admin: 04/22/17 09:03 Dose: 1 patch Ondansetron HCl (Zofran Inj) 4 mg IVP Q4H PRN PRN Reason: Nausea/Vomiting Pantoprazole Sodium (Protonix Ec Tab) 40 mg PO 0600 [facility] Last Admin: 04/22/17 06:09 Dose: 40 mg Thiamine HCl (Vitamin B1 Tab) 100 mg PO DAILY [facility] Last Admin: 04/22/17 09:04 Dose: 100 mg - Labs Labs: 04/22/17 06:20 04/22/17 06:20 PT 11.8 SECONDS (9.4-12.5) 04/21/17 05:30 INR 1.03 (0.93-1.08) 04/21/17 05:30 Attending/Attestation - Attestation I have personally seen and examined this patient.: Yes I have fully participated in the care of the patient.: Yes I have reviewed all pertinent clinical information, including history, physical exam and plan: Yes Notes (Text): 04/22/17 16:43 46 year old female of alcohol abuse and depression who was admitted for alcohol intoxication. Currently admitted for alcohol withdrawal symptoms. Continue with ativan jarvis/ prn taper. Continue with po multivitamin, folic acid and thiamine. She was counselled on alcohol abstinence. Transaminitis likely secondary to chronic ETOH abuse. LFTs continue to improve. Psychiatry evaluation was appreciated for depression/anxiety. She is started on antibiotics for possibly UTI. PT evaluation is requested. Will follow up with recommendations. Yesika Hart MD Hospitalist.
[2017-04-23] MEDS: Pantoprazole 40 mg EC Tab PO SCH (05:22)
[2017-04-23 07:33] VITALS: O2SAT 98
[2017-04-23] MEDS: Multivitamin Therapeutic Tab PO SCH (09:34)
[2017-04-23 14:22] VITALS: PULSE 98
[2017-04-23 17:55] VITALS: BP 141/96; TEMP 98.4
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
== END 2017-04-23 21:49 | disposition home or self-care (01) | DRG 750 ==
LOC: ED 15:48 → ERH 04-20 04:58 → 3RNO 04-20 06:34
PROVIDERS: ADMIT Hospitalist; ATTEND Internal Medicine
DX: F10.239 Alcohol dependence with withdrawal, unspecified (principal); N39.0 Urinary tract infection, site not specified; F10.24 Alcohol dependence with alcohol-induced mood disorder; W19.XXXA Unspecified fall, initial encounter; F32.89 Other specified depressive episodes; F17.210 Nicotine dependence, cigarettes, uncomplicated; S00.31XA Abrasion of nose, initial encounter; F41.9 Anxiety disorder, unspecified; I10 Essential (primary) hypertension; Z88.0 Allergy status to penicillin

== ENCOUNTER 2017-09-14 20:39 | Inpatient (IN) | payer MEDICAID, OTHER ==
--- NOTE | 2017-09-14 20:47 | ED PDOC ---
Arrival/HPI - General Time Seen by Provider: 09/14/17 20:43 Historian: Patient - History of Present Illness Narrative History of Present Illness (Text): 09/14/17 20:44 47 year old female, with an unknown past medical history, who presents to the ED via EMS s/p fall. Patient is wrapped in a banana wrap covered in blood. Full HPI/ROS due to patient's intoxication. Time/Duration: Prior to Arrival Symptom Onset: Sudden Symptom Course: Unchanged Activities at Onset: Light Context: Home Past Medical History - Provider Review Nursing Documentation Reviewed: Yes - Infectious Disease Hx of Infectious Diseases: None - Tetanus Immunization Tetanus Immunization: Unknown - Cardiac Hx Hypertension: Yes - Pulmonary Hx Respiratory Disorders: No - Neurological Hx Neurological Disorder: No - HEENT Hx HEENT Disorder: No - Renal Hx Renal Disorder: No - Endocrine/Metabolic Hx Endocrine Disorders: No - Hematological/Oncological Hx Blood Disorders: No - Integumentary Hx Dermatological Disorder: No - Musculoskeletal/Rheumatological Hx Musculoskeletal Disorders: No - Gastrointestinal Hx Gastrointestinal Disorders: No - Genitourinary/Gynecological Hx Genitourinary Disorders: No - Psychiatric Hx Psychophysiologic Disorder: No Hx Substance Use: No - Anesthesia Hx Anesthesia: No Family/Social History - Physician Review Nursing Documentation Reviewed: Yes Family/Social History: Unknown Family HX Smoking Status: Heavy Smoker > 10 Cigarettes Daily Hx Alcohol Use: Yes Hx Substance Use: No Allergies/Home Meds Allergies/Adverse Reactions: Allergies Penicillins Allergy (Verified 09/14/17 20:59) PAIN Home Medications: Home Meds Medication Instructions Recorded Confirmed Clonazepam [Klonopin] 0.5 mg PO 2XW 10/18/16 09/14/17 Review of Systems - Review of Systems Systems not reviewed;Unavailable: Intoxicated Physical Exam Vital Signs Temp Pulse Resp BP Pulse Ox 09/15/17 06:20 99 H 18 125/77 95 09/15/17 03:56 79 17 124/79 95 09/15/17 02:20 91 H 19 130/79 98 09/15/17 00:13 99 H 18 122/70 96 09/14/17 21:50 98.1 F 88 19 140/98 H 94 L - Systems Exam Head: Present: Atraumatic, Normocephalic Pupils: Present: PERRL Extroacular Muscles: Present: EOMI Conjunctiva: Present: Normal Mouth: Present: Moist Mucous Membranes Neck: Present: Normal Range of Motion Respiratory/Chest: Present: Clear to Auscultation, Good Air Exchange. No: Respiratory Distress, Accessory Muscle Use Cardiovascular: Present: Regular Rate and Rhythm, Normal S1, S2. No: Murmurs Abdomen: No: Tenderness, Distention, Peritoneal Signs Back: Present: Normal Inspection Upper Extremity: Present: Normal Inspection. No: Cyanosis, Edema Lower Extremity: Present: Normal Inspection. No: Edema Neurological: Present: GCS=15, CN II-XII Intact, Speech Normal Skin: Present: Warm, Dry, Normal Color. No: Rashes Psychiatric: Present: Alert, Oriented x 3, Normal Insight, Normal Concentration Medical Decision Making ED Course and Treatment: 09/14/17 20:48 Impression: 47 year old female presents to the ED via EMS s/p fall. Plan: CT Cervical Spine CT Head Labs EKG Chest X-ray Urinalysis TDAP Progress Notes: 09/15/17 00:02 CT Head Without Intravenous Contrast CLINICAL HISTORY: 47 years old, female; Injury or trauma; Fall; Initial encounter; Abrasion; Forehead; Injury date: 09-14-17; Injury details: Abrasion to rt side of forehead; Additional info: Etoh/trauma TECHNIQUE: Axial computed tomography images of the head/brain without intravenous contrast. All CT scans at this facility use at least one of these dose optimization techniques: automated exposure control; mA and/or kV adjustment per patient size (includes targeted exams where dose is matched to clinical indication); or iterative reconstruction. COMPARISON: No relevant prior studies available. FINDINGS: Brain: Volume loss. No acute hemorrhage. No acute infarct. No extra-axial fluid collections. Tiny low density left internal capsule anterior limb, likely nonacute ischemia. Ventricles: No hydrocephalus. Bones/joints: No acute fracture. Soft tissues: Right frontal scalp hematoma/contusion. Sinuses: Mild maxillary sinus mucosal thickening, right greater the left. No fluid levels. Mastoid air cells: Unremarkable as visualized. IMPRESSION: No acute intracranial findings. Right frontal scalp hematoma/contusion. 09/15/17 00:16 CT Cervical Spine Without Intravenous Contrast EXAM DATE/TIME: 09/14/2017 8:59 PM CLINICAL HISTORY: 47 years old, female; Injury or trauma; Fall; Initial encounter; Blunt trauma; Injury date: 09-14-17; Additional info: Etoh/trauma TECHNIQUE: Axial computed tomography images of the cervical spine without intravenous contrast. All CT scans at this facility use at least one of these dose optimization techniques: automated exposure control; mA and/or kV adjustment per patient size (includes targeted exams where dose is matched to clinical indication); or iterative reconstruction. COMPARISON: No relevant prior studies available. FINDINGS: Vertebrae: No acute findings. No acute fracture. Discs/spinal canal/neural foramina: No acute findings. No spinal canal stenosis. Soft tissues: No acute findings. Lung apices: No acute findings. IMPRESSION: No acute findings. 09/15/17 06:33 Patient still shaky despite MVI, Librium and Ativan. Will need to admit for withdrawal 09/15/17 06:34 Discussed with Pulp Mill Operator and Dr. Juancho Meza --> will pass on to [facility] Hospital[facility] - Lab Interpretations Lab Results: 09/14/17 21:50 09/14/17 21:50 Lab Results 09/14/17 22:09: Urine Color Yellow, Urine Appearance Clear, Urine pH 6.5, Ur Specific Unity <= 1.005, Urine Protein Negative, Urine Glucose (UA) Negative, Urine Ketones Negative, Urine Blood Trace-lysed H, Urine Nitrate Negative, Urine Bilirubin Negative, Urine Urobilinogen 0.2, Ur Leukocyte Esterase Negative , Urine RBC 0 - 2, Urine WBC 0 - 2, Ur Epithelial Cells 0 - 2, Urine HCG, Qual Negative 09/14/17 22:09: Urine Opiates Screen Negative, Urine Methadone Screen Negative, Ur Barbiturates Screen Negative, Ur Phencyclidine Scrn Negative, Ur Amphetamines Screen Negative, U Benzodiazepines Scrn Negative, U Oth Cocaine Metabols Negative, U Cannabinoids Screen Negative 09/14/17 21:50: Alcohol, Quantitative 423 H* 09/14/17 21:50: Sodium 146, Potassium 4.9, Chloride 101, Carbon Dioxide 28, Anion Gap 23 H, BUN 3 L, Creatinine 0.5 L, Est GFR ( Amer) > 60, Est GFR (Non-Af Amer) > 60, Random Glucose 112 H, Calcium 9.9, Phosphorus 4.3, Magnesium 2.0, Total Bilirubin 1.2, AST 608 H D, ALT 223 H, Alkaline Phosphatase 197 H D, Lactate Dehydrogenase 1025 H, Total Creatine Kinase 347 H, CK-MB (CK-2) 0.9, CK-MB (CK-2) % Cancelled, Troponin I < 0.01, Total Protein 9.6 H, Albumin 5.1 H, Globulin 4.4, Albumin/Globulin Ratio 1.2 09/14/17 21:50: PT 11.4, INR 1.00 09/14/17 21:50: WBC 5.5 D, RBC 4.37, Hgb 13.7 D, Hct 39.9, MCV 91.3 D, MCH 31.4, MCHC 34.3, RDW 17.5 H, Plt Count 53 L, MPV 10.5, Gran % 64.7, Lymph % ( Auto) 24.7, Nolan % (Auto) 9.7 H, Eos % (Auto) 0.5 L, Baso % (Auto) 0.4, Gran # 3.53, Lymph # (Auto) 1.4, Nolan # (Auto) 0.5, Eos # (Auto) 0.0, Baso # (Auto) 0.02 - RAD Interpretation Radiology Orders: 09/14/17 20:59 CERVICAL SPINE W/O CONTRAST [CT] Stat HEAD W/O CONTRAST [CT] Stat CHEST PORTABLE [RAD] Stat - Medication Orders Current Medication Orders: Discontinued Medications Chlordiazepoxide (Librium) 50 mg PO STAT STA PRN Reason: Protocol Stop: 09/15/17 03:36 Last Admin: 09/15/17 03:52 Dose: 50 mg Multivitamins/Vitamin C 10 ml/Thiamine HCl 100 mg/ Folic Acid 1 mg/ Sodium Chloride 1,011.2 mls @ 1,000 mls/hr IV .Q1H1M ONE Stop: 09/14/17 21:59 Last Admin: 09/14/17 22:02 Dose: 1,000 mls/hr eMAR Start Stop Document 09/14/17 22:02 RD (Rec: 09/14/17 22:03 RD [id number]) Intravenous Solution Start Date 09/14/17 Start Time 22:03 End Date 09/14/17 End time 23:03 Total Infusion Time 60 Lorazepam (Ativan) 2 mg PO ONCE ONE PRN Reason: Protocol Stop: 09/15/17 06:20 Last Admin: 09/15/17 06:26 Dose: 2 mg Tetanus/Reduced Diphtheria/Acell Pertussis (Boostrix Vaccine Inj) 0.5 ml IM .ONCE ONE Stop: 09/14/17 21:01 Last Admin: 09/14/17 22:01 Dose: 0.5 ml MAR Immunization Data Document 09/14/17 22:01 RD (Rec: 09/14/17 22:01 RD [id number]) Immunization Data Vaccine Information Sheet Given Yes Vaccine Information Sheet Given Date 09/14/17 Immunization Registry Document 09/14/17 22:01 RD (Rec: 09/14/17 22:01 RD [id number]) Immunization Registry Consent Date 09/14/17 - Scribe Statement The provider has reviewed the documentation as recorded by the Scribe Merle Smith All medical record entries made by the Scribe were at my direction and personally dictated by me. I have reviewed the chart and agree that the record accurately reflects my personal performance of the history, physical exam, medical decision making, and the department course for this patient. I have also personally directed, reviewed, and agree with the discharge instructions and disposition. Disposition/Present on Arrival - Present on Arrival Any Indicators Present on Arrival: No History of DVT/PE: No History of Uncontrolled Diabetes: No Urinary Catheter: No History Surgical Site Infection Following: None - Disposition Have Diagnosis and Disposition been Completed?: Yes Diagnosis: Alcoholism /alcohol abuse, Fall, Scalp hematoma, Alcohol withdrawal Disposition Time: 06:45 Patient Plan: Admission Patient Problems: Current Active Problems Problem Status Onset Alcohol withdrawal Acute Alcoholism /alcohol abuse Acute Fall Acute Scalp hematoma Acute Condition: GOOD Discharge Instructions (ExitCare): Closed Head Injury (DC), Alcohol Abuse and Alcoholism (DC)
[2017-09-14 20:50] VITALS: BMI 22.3
[2017-09-14] MEDS ORDERED: Multivitamin (MVI) 10 ML, Thiamine 100 MG, Folic Acid 1 MG in Sodium Chloride 0.9% 1,00... IV ONE (20:59)
[2017-09-14] MEDS ORDERED: TDAP Vaccine 0.5 mL Syr IM ONE (21:00)
[2017-09-14 22:09] LABS: BASO # 0.02 K/mm3 (0.0-2.0); BASO % 0.4 % (0.0-3.0); EOS % 0.5 % (1.5-5.0); GRAN # 3.53 (1.4-6.5); GRAN % 64.7 % (50.0-68.0); HEMOGLOBIN 13.7 g/dL (12.0-16.0); LYMPH # 1.4 (1.2-3.4); LYMPH % 24.7 % (22.0-35.0); MEAN CELL VOLUME 91.3 fl (80.0-105.0); MEAN CORPUSCULAR HEMOGLOBIN 31.4 pg (25.0-35.0); MEAN CORPUSCULAR HGB CONC 34.3 g/dl (31.0-37.0); MEAN PLATELET VOLUME 10.5 fl (7.0-11.0); MONO # 0.5 (0.1-0.6); MONO % 9.7 % (1.0-6.0); RBC 4.37 10^6/uL (3.5-6.1); RED CELL DISTRIBUTION WIDTH 17.5 % (11.5-14.5); WHITE BLOOD COUNT 5.5 10^3/ul (4.5-11.0)
[2017-09-14 22:16] LABS: PROTHROMBIN TIME 11.4 SECONDS (9.4-12.5)
[2017-09-14 22:18] LABS: ALB/GLOB RATIO 1.2 (1.1-1.8); ALBUMIN 5.1 g/dL (3.0-4.8); ALT/SGPT 223 U/L (7-56); AST/SGOT 608 U/L (14-36); BLOOD UREA NITROGEN 3 mg/dL (7-21); CALCIUM 9.9 mg/dL (8.4-10.5); GFR AFRICAN-AMERICAN > 60; GFR NON-AFRICAN AMERICAN > 60
[2017-09-14 22:29] LABS: TROPONIN I < 0.01 ng/mL
[2017-09-14 22:34] LABS: CK-MB 0.9 ng/mL (0.0-3.6)
[2017-09-14 22:51] LABS: PH,URINE 6.5 (4.7-8.0); URINE BILIRUBIN NEGATIVE (NEGATIVE); URINE BLOOD TRACE-LYSED (NEGATIVE); URINE GLUCOSE (UA) NEGATIVE (NEGATIVE); URINE LEUKOCYTE ESTERASE NEGATIVE Leu/uL (NEGATIVE); URINE PROTEIN NEGATIVE mg/dL (<30 mg/dL); URINE UROBILINOGEN 0.2 E.U./dL (<1 E.U./dL)
[2017-09-14 22:54] LABS: URINE APPEARANCE CLEAR (CLEAR); URINE COLOR YELLOW (YELLOW)
[2017-09-14 23:02] LABS: HCG,QUALITATIVE URINE NEGATIVE (NEGATIVE)
[2017-09-14 23:20] LABS: BARBITURATES, UR NEGATIVE (NEGATIVE); BENZODIAZEPINES, UR NEGATIVE (NEGATIVE); OPIATES, UR NEGATIVE (NEGATIVE); PHENCYCLIDINE, UR NEGATIVE (NEGATIVE)
[2017-09-14 23:22] LABS: URINE EPITHELIAL CELLS 0 - 2 /hpf (0-5); URINE RBC 0 - 2 /hpf (0-2); URINE WBC 0 - 2 /hpf (0-6)
--- NOTE | 2017-09-15 08:40 | CT ---
Date of service: 09/14/2017 PROCEDURE: CT Cervical Spine without contrast HISTORY: ETOH/TRAUMA COMPARISON: None available. TECHNIQUE: Axial computed tomography images were obtained of the cervical spine without the use of intravenous contrast. Coronal and sagittal reformatted images were created and reviewed. Radiation dose: Total exam DLP = mGy-cm. This CT exam was performed using one or more of the following dose reduction techniques: Automated exposure control, adjustment of the mA and/or kV according to patient size, and/or use of iterative reconstruction technique. FINDINGS: VERTEBRAE: No fracture. Normal alignment. No destructive bony lesion. DISCS/SPINAL CANAL/NEURAL FORAMINA: No significant central canal or neural foraminal stenosis. Discs heights are grossly preserved. PARASPINAL SOFT TISSUES: Unremarkable. OTHER FINDINGS: None. IMPRESSION: Unremarkable CT of the cervical spine.
--- NOTE | 2017-09-15 08:45 | CT ---
Date of service: 09/14/2017 PROCEDURE: CT HEAD WITHOUT CONTRAST. HISTORY: ETOH/TRAUMA COMPARISON: None available. TECHNIQUE: Axial computed tomography images were obtained through the head/brain without intravenous contrast. Radiation dose: Total exam DLP = mGy-cm. This CT exam was performed using one or more of the following dose reduction techniques: Automated exposure control, adjustment of the mA and/or kV according to patient size, and/or use of iterative reconstruction technique. FINDINGS: HEMORRHAGE: No intracranial hemorrhage. BRAIN: No mass effect or edema. No atrophy or chronic microvascular ischemic changes. VENTRICLES: Unremarkable. No hydrocephalus. CALVARIUM: Unremarkable. PARANASAL SINUSES: Unremarkable as visualized. No significant inflammatory changes. MASTOID AIR CELLS: Unremarkable as visualized. No inflammatory changes. OTHER FINDINGS: Right frontal soft tissue swelling. . IMPRESSION: No intracranial hemorrhage.
[2017-09-15] MEDS ORDERED: Folic Acid 1 MG, Thiamine 100 MG, Multivitamin (MVI) 10 ML in Dextrose 5% In Water 1,00... IV ONE (09:00)
--- NOTE | 2017-09-15 09:09 | RAD ---
Date of service: 09/14/2017 HISTORY: ETOH/TRAUMA COMPARISON: 04/19/2017 FINDINGS: LUNGS: No active pulmonary disease. PLEURA: No significant pleural effusion identified, no pneumothorax apparent. CARDIOVASCULAR: Normal. OSSEOUS STRUCTURES: No significant abnormalities. VISUALIZED UPPER ABDOMEN: Normal. OTHER FINDINGS: None. IMPRESSION: No active disease.
[2017-09-15 09:31] LABS: BASO # 0.03 K/mm3 (0.0-2.0); BASO % 0.7 % (0.0-3.0); EOS # 0.1 (0.0-0.7); EOS % 1.9 % (1.5-5.0); GRAN # 3.07 (1.4-6.5); HEMOGLOBIN 11.8 g/dL (12.0-16.0); LYMPH # 0.7 (1.2-3.4); LYMPH % 15.5 % (22.0-35.0); MEAN CELL VOLUME 92.1 fl (80.0-105.0); MEAN CORPUSCULAR HEMOGLOBIN 31.1 pg (25.0-35.0); MEAN CORPUSCULAR HGB CONC 33.8 g/dl (31.0-37.0); MEAN PLATELET VOLUME 9.6 fl (7.0-11.0); MONO # 0.4 (0.1-0.6); MONO % 9.9 % (1.0-6.0); RBC 3.79 10^6/uL (3.5-6.1); RED CELL DISTRIBUTION WIDTH 17.4 % (11.5-14.5); WHITE BLOOD COUNT 4.3 10^3/ul (4.5-11.0)
[2017-09-15 09:42] LABS: PLATELET COUNT 44 10^3/uL (120.0-450.0)
[2017-09-15 09:43] LABS: ACETAMINOPHEN < 10.0 ug/ml (10.0-20.0); SALICYLATE < 1 mg/dL (2.0-20.0)
[2017-09-15 10:14] LABS: ALB/GLOB RATIO 1.2 (1.1-1.8); ALBUMIN 4.2 g/dL (3.0-4.8); ALT/SGPT 208 U/L (7-56); AST/SGOT 676 U/L (14-36); BLOOD UREA NITROGEN 4 mg/dL (7-21); CALCIUM 8.5 mg/dL (8.4-10.5); GFR AFRICAN-AMERICAN > 60; GFR NON-AFRICAN AMERICAN > 60
--- NOTE | 2017-09-15 10:34 | CP.PCM.HP ---
<Madhu Ramirez - Last Filed: 09/15/17 12:58> History of Present Illness - History of Present Illness History of Present Illness: Madhu Ramirez DO PGY1 Internal Medicine [employer] - Hospital H&P 47F w/ a PMH significant for EtOH abuse, depression, and transaminitis [place] [facility] [place] for EtOH intoxication s/p fall. She was seen at bedside this AM on the floor and reported that she has no recollection of her arrival here. She stated that she was sitting in the park drinking beer however cannot elaborate any memory after that. She reported that she does not recall her fall or how she got her head injury. At this time patient is complaining of diaphoresis, subjective fever, tremors, cough w/ productive yellow sputum (x3wks), some SOB, generalized itchiness, pins/needles sensation in arms/ legs, nausea, and diarrhea. Denies any episodes of vomitus here, denies any episodes of diarrhea here. Remainder of 12 system ROS is unremarkable. PMD: Denies PMH: Pt. 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 Present on Admission - Present on Admission Any Indicators Present on Admission: No Review of Systems - Review of Systems Review of Systems: As per HPI Past Patient History - Infectious Disease Hx of Infectious Diseases: None - Tetanus Immunizations Tetanus Immunization: Unknown - Past Social History Smoking Status: Heavy Smoker > 10 Cigarettes Daily - CARDIAC Hx Hypertension: Yes - PULMONARY Hx Respiratory Disorders: No - NEUROLOGICAL Hx Neurological Disorder: No - HEENT Hx HEENT Problems: No - RENAL Hx Chronic Kidney Disease: No - ENDOCRINE/METABOLIC Hx Endocrine Disorders: No - HEMATOLOGICAL/ONCOLOGICAL Hx Blood Disorders: No - INTEGUMENTARY Hx Dermatological Problems: No - MUSCULOSKELETAL/RHEUMATOLOGICAL Hx Musculoskeletal Disorders: No - GASTROINTESTINAL Hx Gastrointestinal Disorders: No - GENITOURINARY/GYNECOLOGICAL Hx Genitourinary Disorders: No - PSYCHIATRIC Hx Psychophysiologic Disorder: No Hx Substance Use: No - SURGICAL HISTORY Hx Surgeries: No - ANESTHESIA Hx Anesthesia: No Meds Allergies/Adverse Reactions: Allergies Allergy/AdvReac Type Severity Reaction Status Date / Time Penicillins Allergy PAIN Verified 09/14/17 20:59 Physical Exam - Constitutional Appears: Non-toxic, Agitated - Head Exam Additional comments: Traumatic injury to R upper forehead; currently dressed / bandaged - Eye Exam Eye Exam: EOMI, PERRL. absent: Scleral icterus - ENT Exam ENT Exam: Mucous Membranes Dry - Respiratory Exam Respiratory Exam: Clear to Auscultation Bilateral, NORMAL BREATHING PATTERN. absent: Rales, Rhonchi, Wheezes - Cardiovascular Exam Cardiovascular Exam: REGULAR RHYTHM, RRR, +S1, +S2. absent: Systolic Murmur - GI/Abdominal Exam GI & Abdominal Exam: Normal Bowel Sounds, Soft - Extremities Exam Extremities exam: Positive for: pedal pulses present (2+ DP/TP BL ). Negative for: pedal edema - Back Exam Back exam: absent: CVA tenderness (L), CVA tenderness (R) - Neurological Exam Additional comments: Tremulous upper extremities; No flapping asterixis - Psychiatric Exam Psychiatric exam: Agitated, Normal Affect - Skin Skin Exam: Dry, Warm Additional comments: Small scabs appreciated throughout upper extremity and lower extremity BL Hirsutism on lower extremiteis at level of knee and fore arms BL Abrasions on Feet BL Nail fungus on all toe-nails BL Results - Vital Signs Recent Vital Signs: Last Vital Signs Temp 98.3 F 09/15/17 09:01 Pulse 79 09/15/17 07:10 Resp 18 09/15/17 09:01 BP 142/88 09/15/17 07:10 Pulse Ox 99 09/15/17 09:01 - Labs Result Diagrams: 09/15/17 09:20 09/15/17 09:20 Labs: Laboratory Results - last 24 hr 09/15/17 09/15/17 09/15/17 09:20 09:20 09:20 WBC 4.3 L D RBC 3.79 Hgb 11.8 L Hct 34.9 L MCV 92.1 MCH 31.1 MCHC 33.8 RDW 17.4 H Plt Count 44 L* MPV 9.6 Gran % 72.0 H Lymph % (Auto) 15.5 L Sullivan % (Auto) 9.9 H Eos % (Auto) 1.9 Baso % (Auto) 0.7 Gran # 3.07 Lymph # (Auto) 0.7 L Sullivan # (Auto) 0.4 Eos # (Auto) 0.1 Baso # (Auto) 0.03 Sodium Potassium Chloride Carbon Dioxide Anion Gap BUN Creatinine Est GFR ( Amer) Est GFR (Non-Af Amer) Random Glucose Calcium Phosphorus Magnesium Total Bilirubin AST ALT Alkaline Phosphatase Ammonia 17 Total Protein Albumin Globulin Albumin/Globulin Ratio Salicylates < 1 L Acetaminophen < 10.0 L 09/15/17 09:20 WBC RBC Hgb Hct MCV MCH MCHC RDW Plt Count MPV Gran % Lymph % (Auto) Sullivan % (Auto) Eos % (Auto) Baso % (Auto) Gran # Lymph # (Auto) Sullivan # (Auto) Eos # (Auto) Baso # (Auto) Sodium 142 Potassium 3.9 Chloride 105 Carbon Dioxide 24 Anion Gap 17 BUN 4 L Creatinine 0.5 L Est GFR ( Amer) > 60 Est GFR (Non-Af Amer) > 60 Random Glucose 82 Calcium 8.5 Phosphorus 3.4 Magnesium 1.6 L Total Bilirubin 1.1 AST 676 H ALT 208 H Alkaline Phosphatase 159 H Ammonia Total Protein 7.6 Albumin 4.2 Globulin 3.4 Albumin/Globulin Ratio 1.2 Salicylates Acetaminophen Assessment & Plan - Assessment and Plan (Free Text) Assessment: 47F w/ a PMH significant for EtOH abuse, depression, and transaminitis presented [place] [facility] [place] via EMS for EtOH intoxication s/p fall. EtOH Intoxication/ Withdrawal - Appears to be tremulous at this time; EtOH level on admission 423 - CIWA 16 - C/w Bananabag @ 100mls/hr; - Start NS IVF w/ K+ supplement once banana bag completed - Ativan 2mg Q4H JARVIS, Ativan 2mg Q6H PRN, Ativan 1mg Q1H PRN - No librium due to transaminitis - C/w Thiamine, Folic acid, and Multivitamin Transaminitis - Patient w/ known history of transaminitis; AST/ ALT 608/223 - Most likely 2/2 EtOH abuse, however cannot exlcude hepatitis vs salicylate / acetaminophen tox - Hepatic and spleen US pending - Hepatitis panel pending - Avoid hepatotoxic medications - GI consulted, appreciate reccs Thrombocytopenia - Patient has demonstrated prior history of thrombocytopenia - Most likely due to hepatic insult vs bone marrow suppression in setting of EtOH abuse - Will follow platelet counts and transfuse when necessary - Hold thrombocytopenic medications - Hold antiplatelet rx/ DVT prophylaxis Hypomagnesmia - Repleted w/ 1gm IVPB - Reassess in AM GI/DVT - Pepcid / SCD Dispo:Admit to Obs for management of EtOH withdrawal, and workup of transaminitis/thrombocytopenia Patient seen, examined, and discussed w/ attending physician Glen Davidson DO PGY1 Iternal Medicine [employer] - Pager [phone] - Date & Time Date: 09/15/17 Time: 12:45 <Glen Ferguson - Last Filed: 09/16/17 13:47> Results - Vital Signs Recent Vital Signs: Last Vital Signs Temp 98.3 F 09/16/17 07:46 Pulse 92 H 09/16/17 07:46 Resp 20 09/16/17 07:46 BP 151/101 H 09/16/17 07:46 Pulse Ox 98 09/16/17 07:46 - Labs Result Diagrams: 09/16/17 05:00 09/16/17 05:00 Labs: Laboratory Results - last 24 hr 09/15/17 09/15/17 09/16/17 09:20 09:20 05:00 WBC 3.4 L D RBC 3.80 Hgb 11.7 L Hct 35.5 L MCV 93.4 MCH 30.8 MCHC 33.0 RDW 17.2 H Plt Count 46 L* MPV 11.3 H Gran % 62.9 Lymph % (Auto) 21.8 L Sullivan % (Auto) 11.5 H Eos % (Auto) 3.2 Baso % (Auto) 0.6 Gran # 2.14 Lymph # (Auto) 0.7 L Sullivan # (Auto) 0.4 Eos # (Auto) 0.1 Baso # (Auto) 0.02 Sodium Potassium Chloride Carbon Dioxide Anion Gap BUN Creatinine Est GFR ( Amer) Est GFR (Non-Af Amer) Random Glucose Calcium Phosphorus Magnesium Total Bilirubin AST ALT Alkaline Phosphatase Total Protein Albumin Globulin Albumin/Globulin Ratio IgG 1096.8 Hepatitis A IgM Ab Negative Hep Bs Antigen Negative Hep B Core IgM Ab Negative Hepatitis C Antibody Negative 09/16/17 05:00 WBC RBC Hgb Hct MCV MCH MCHC RDW Plt Count MPV Gran % Lymph % (Auto) Sullivan % (Auto) Eos % (Auto) Baso % (Auto) Gran # Lymph # (Auto) Sullivan # (Auto) Eos # (Auto) Baso # (Auto) Sodium 137 Potassium 3.7 Chloride 101 Carbon Dioxide 29 Anion Gap 11 BUN 4 L Creatinine 0.4 L Est GFR ( Amer) > 60 Est GFR (Non-Af Amer) > 60 Random Glucose 108 Calcium 8.8 Phosphorus 3.1 Magnesium 1.9 Total Bilirubin 2.1 H AST 609 H ALT 193 H Alkaline Phosphatase 152 H Total Protein 6.9 Albumin 3.7 Globulin 3.1 Albumin/Globulin Ratio 1.2 IgG Hepatitis A IgM Ab Hep Bs Antigen Hep B Core IgM Ab Hepatitis C Antibody Attending/Attestation - Attestation I have personally seen and examined this patient.: Yes I have fully participated in the care of the patient.: Yes I have reviewed all pertinent clinical information: Yes Notes (Text): 09/16/17 13:42 Medical record note made by the resident after discussion with my direction and input after the patient was personally seen and examined by me. I have reviewed the chart and agree that the record accurately reflects by personal performance of the history, physical exam, data review, and medical decision-making, in the course for the patient. I have also personally directed the plan of care. 47 yrs old female with PMH of alcohol abuse and depression was admitted with alcohol intoxication , head trauma, found to be have withdrawal, elevated LFT and thrombocytopenia due to alcohol abuse.CT scan of head is negative.There is no focal deficit. We will monitor patient with [facility] protocol with ativan, We will get abdominal USG and will also get GI evaluation. She has been advised to stop drinking Alcohol. Management plan was discussed in detail with patient Education was provided.
--- NOTE | 2017-09-15 10:42 | CP.PCM.CON ---
<Rachna Ortiz - Last Filed: 09/15/17 13:08> History of Present Illness - History of Present Illness History of Present Illness: GI Fellow Consult PGY5 This is a 47yF with a pmhx of [place]olan-speaking female with a PMH of ETOH abuse, tobacco use, depression and anxiety brought in by EMS after being found intoxicated with a head injury. She states that she normally drinks 2 bottles of whiskey/vodka daily. She does experience tremors but hasn't gone through withdrawals before and denies any seizure activity. Her last detox rehab program was >2yr ago. She was found to have a head injury but imaging was negative. She also states she has rabdominal pain but no nausea/vomiting but denies any SOB, chest pain, headache, cough, recent illness, fever, chills, diarrhea. ROS: A 12pt ROS was negative except as above PMH: as above PSH: none Family hx: colon cancer Social: tobacco: 20 cigarettes a day, alcohol: 5 drinks (vodka/whiskey) daily, denies any illicit drug use Past Patient History - Infectious Disease Hx of Infectious Diseases: None - Tetanus Immunizations Tetanus Immunization: Unknown - Past Social History Smoking Status: Heavy Smoker > 10 Cigarettes Daily - CARDIAC Hx Hypertension: Yes - PULMONARY Hx Respiratory Disorders: No - NEUROLOGICAL Hx Neurological Disorder: No - HEENT Hx HEENT Problems: No - RENAL Hx Chronic Kidney Disease: No - ENDOCRINE/METABOLIC Hx Endocrine Disorders: No - HEMATOLOGICAL/ONCOLOGICAL Hx Blood Disorders: No - INTEGUMENTARY Hx Dermatological Problems: No - MUSCULOSKELETAL/RHEUMATOLOGICAL Hx Musculoskeletal Disorders: No - GASTROINTESTINAL Hx Gastrointestinal Disorders: No - GENITOURINARY/GYNECOLOGICAL Hx Genitourinary Disorders: No - PSYCHIATRIC Hx Psychophysiologic Disorder: No Hx Substance Use: No - SURGICAL HISTORY Hx Surgeries: No - ANESTHESIA Hx Anesthesia: No Meds Allergies/Adverse Reactions: Allergies Allergy/AdvReac Type Severity Reaction Status Date / Time Penicillins Allergy PAIN Verified 09/14/17 20:59 - Medications Medications: Current Medications Folic Acid (Folic Acid) 1 mg PO DAILY [facility] Folic Acid 1 mg/ Thiamine HCl 100 mg/ Multivitamins/Vitamin C 10 ml/ Dextrose 1 ,011.2 mls @ 100 mls/hr IV .Q10H7M ONE Stop: 09/15/17 19:06 Potassium Chloride 20 meq/ (Sodium Chloride) 1,010 mls @ 100 mls/hr IV .Q10H6M [facility] Lorazepam (Ativan) 2 mg IVP Q4H [facility] PRN Reason: Protocol Stop: 09/16/17 12:00 Last Admin: 09/15/17 08:59 Dose: 2 mg Lorazepam (Ativan) 1 mg IVP Q1H PRN; Protocol PRN Reason: Withdrawal Lorazepam (Ativan) 2 mg IVP Q6H PRN; Protocol PRN Reason: Withdrawal Multivitamins/Minerals (Therapeutic-M Tab) 1 tab PO 0800 [facility] Thiamine HCl (Vitamin B1 Tab) 100 mg PO DAILY [facility] Physical Exam - Constitutional Appears: Non-toxic, No Acute Distress, Unkempt - Head Exam Head Exam: ATRAUMATIC, NORMAL INSPECTION, NORMOCEPHALIC - Eye Exam Eye Exam: EOMI, Normal appearance Pupil Exam: Miosis - ENT Exam ENT Exam: Mucous Membranes Dry - Neck Exam Neck exam: Positive for: Normal Inspection - Respiratory Exam Respiratory Exam: Clear to Auscultation Bilateral, NORMAL BREATHING PATTERN - Cardiovascular Exam Cardiovascular Exam: Tachycardia, +S1, +S2 - GI/Abdominal Exam GI & Abdominal Exam: Normal Bowel Sounds, Soft, Tenderness. absent: Distended, Guarding, Organomegaly - Rectal Exam Rectal Exam: Deferred - Extremities Exam Extremities exam: Positive for: full ROM, normal inspection - Back Exam Back exam: NORMAL INSPECTION - Neurological Exam Neurological exam: Alert, Oriented x3 - Psychiatric Exam Psychiatric exam: Normal Affect, Normal Mood - Skin Skin Exam: Dry, Intact, Normal Color, Warm Results - Vital Signs Recent Vital Signs: Last Vital Signs Temp 98.3 F 09/15/17 09:01 Pulse 79 09/15/17 07:10 Resp 18 09/15/17 09:01 BP 142/88 09/15/17 07:10 Pulse Ox 99 09/15/17 09:01 - Labs Result Diagrams: 09/15/17 09:20 09/15/17 09:20 Labs: Laboratory Results - last 24 hr 09/15/17 09/15/17 09/15/17 09:20 09:20 09:20 WBC 4.3 L D RBC 3.79 Hgb 11.8 L Hct 34.9 L MCV 92.1 MCH 31.1 MCHC 33.8 RDW 17.4 H Plt Count 44 L* MPV 9.6 Gran % 72.0 H Lymph % (Auto) 15.5 L Walton % (Auto) 9.9 H Eos % (Auto) 1.9 Baso % (Auto) 0.7 Gran # 3.07 Lymph # (Auto) 0.7 L Walton # (Auto) 0.4 Eos # (Auto) 0.1 Baso # (Auto) 0.03 Sodium Potassium Chloride Carbon Dioxide Anion Gap BUN Creatinine Est GFR ( Amer) Est GFR (Non-Af Amer) Random Glucose Calcium Phosphorus Magnesium Total Bilirubin AST ALT Alkaline Phosphatase Ammonia 17 Total Protein Albumin Globulin Albumin/Globulin Ratio Salicylates < 1 L Acetaminophen < 10.0 L 09/15/17 09:20 WBC RBC Hgb Hct MCV MCH MCHC RDW Plt Count MPV Gran % Lymph % (Auto) Walton % (Auto) Eos % (Auto) Baso % (Auto) Gran # Lymph # (Auto) Walton # (Auto) Eos # (Auto) Baso # (Auto) Sodium 142 Potassium 3.9 Chloride 105 Carbon Dioxide 24 Anion Gap 17 BUN 4 L Creatinine 0.5 L Est GFR ( Amer) > 60 Est GFR (Non-Af Amer) > 60 Random Glucose 82 Calcium 8.5 Phosphorus 3.4 Magnesium 1.6 L Total Bilirubin 1.1 AST 676 H ALT 208 H Alkaline Phosphatase 159 H Ammonia Total Protein 7.6 Albumin 4.2 Globulin 3.4 Albumin/Globulin Ratio 1.2 Salicylates Acetaminophen Assessment & Plan - Assessment and Plan (Free Text) Assessment: This is a 47yF presenting after alcohol intoxication 1. Alcohol intoxication/withdrawal 2. Elevated LFTs 3. Thrombocytopenia 4. Anemia Plan: -Continue supportive care -Alcohol withdrawal protocol -Elevated LFTs from alcohol intoxication/alcoholic hepatitis DF is low -Abdominal US to r/o cirrhosis -Monitor LFTs -Hepatitis panel pending -Will continue to follow pt closely <Cr Somers Y - Last Filed: 09/15/17 13:18> Meds - Medications Medications: Current Medications Folic Acid (Folic Acid) 1 mg PO DAILY [facility] Last Admin: 09/15/17 11:17 Dose: 1 mg Folic Acid 1 mg/ Thiamine HCl 100 mg/ Multivitamins/Vitamin C 10 ml/ Dextrose 1 ,011.2 mls @ 100 mls/hr IV .Q10H7M ONE Stop: 09/15/17 19:06 Last Admin: 09/15/17 11:17 Dose: 100 mls/hr Potassium Chloride 20 meq/ (Sodium Chloride) 1,010 mls @ 100 mls/hr IV .Q10H6M [facility] Magnesium Sulfate/Dextrose (Magnesium Sulfate 1 Gm/100 Ml D5w) 1 gm in 100 mls @ 100 mls/hr IVPB ONCE ONE Stop: 09/15/17 13:57 Lorazepam (Ativan) 2 mg IVP Q4H [facility] PRN Reason: Protocol Stop: 09/16/17 12:00 Last Admin: 09/15/17 12:50 Dose: Not Given Lorazepam (Ativan) 1 mg IVP Q1H PRN; Protocol PRN Reason: Withdrawal Last Admin: 09/15/17 11:40 Dose: 1 mg Lorazepam (Ativan) 2 mg IVP Q6H PRN; Protocol PRN Reason: Withdrawal Multivitamins/Minerals (Therapeutic-M Tab) 1 tab PO 0800 [facility] Thiamine HCl (Vitamin B1 Tab) 100 mg PO DAILY [facility] Last Admin: 09/15/17 11:18 Dose: 100 mg Results - Vital Signs Recent Vital Signs: Last Vital Signs Temp 98.3 F 09/15/17 09:01 Pulse 79 09/15/17 07:10 Resp 18 09/15/17 09:01 BP 142/88 09/15/17 07:10 Pulse Ox 99 09/15/17 09:01 - Labs Result Diagrams: 09/15/17 09:20 09/15/17 09:20 Labs: Laboratory Results - last 24 hr 09/15/17 09/15/17 09/15/17 09:20 09:20 09:20 WBC 4.3 L D RBC 3.79 Hgb 11.8 L Hct 34.9 L MCV 92.1 MCH 31.1 MCHC 33.8 RDW 17.4 H Plt Count 44 L* MPV 9.6 Gran % 72.0 H Lymph % (Auto) 15.5 L Walton % (Auto) 9.9 H Eos % (Auto) 1.9 Baso % (Auto) 0.7 Gran # 3.07 Lymph # (Auto) 0.7 L Walton # (Auto) 0.4 Eos # (Auto) 0.1 Baso # (Auto) 0.03 Sodium Potassium Chloride Carbon Dioxide Anion Gap BUN Creatinine Est GFR ( Amer) Est GFR (Non-Af Amer) Random Glucose Calcium Phosphorus Magnesium Total Bilirubin AST ALT Alkaline Phosphatase Ammonia 17 Total Protein Albumin Globulin Albumin/Globulin Ratio Salicylates < 1 L Acetaminophen < 10.0 L 09/15/17 09:20 WBC RBC Hgb Hct MCV MCH MCHC RDW Plt Count MPV Gran % Lymph % (Auto) Walton % (Auto) Eos % (Auto) Baso % (Auto) Gran # Lymph # (Auto) Walton # (Auto) Eos # (Auto) Baso # (Auto) Sodium 142 Potassium 3.9 Chloride 105 Carbon Dioxide 24 Anion Gap 17 BUN 4 L Creatinine 0.5 L Est GFR ( Amer) > 60 Est GFR (Non-Af Amer) > 60 Random Glucose 82 Calcium 8.5 Phosphorus 3.4 Magnesium 1.6 L Total Bilirubin 1.1 AST 676 H ALT 208 H Alkaline Phosphatase 159 H Ammonia Total Protein 7.6 Albumin 4.2 Globulin 3.4 Albumin/Globulin Ratio 1.2 Salicylates Acetaminophen Attending/Attestation - Attestation I have personally seen and examined this patient.: Yes I have fully participated in the care of the patient.: Yes I have reviewed all pertinent clinical information: Yes Notes (Text): 09/15/17 13:13 I have seen and examined patient with GI fellow. Agree with above documentation with the following additions. In brief, this is a 47 year old female with history of depression, ETOH abuse who was brought to hospital in intoxicated state following traumatic head injury. GI called for evaluation of elevated LFTs. She reports mild epigastric abdominal pain but otherwise denies nausea, vomiting, fever/chills, weight loss, or change in bowel habits. She denies excessive tylenol use. She does admit to ongoing ETOH abuse, consumes nearly 2 bottles of liquor daily. No prior endoscopic evaluation. Depression Transaminitis in setting of acute ETOH intoxication with ongoing ETOH abuse Pancytopenia - likely secondary to BM suppression from ETOH - Continue with liquid diet, advance slowly as tolerated - Anti-nausea medication PRN - Continue with IVF hydration, supportive care - Monitor for signs of ETOH withdrawal - Abdominal US ordered by medical team, follow up results - Continue to monitor LFTs, viral hepatitis panel negative in April 2017 - ETOH cessation counseling - No further planned GI interventions, will sign off case. Please reconsult as necessary, thank you.
[2017-09-15] MEDS ORDERED: Magnesium Sulfate 1 gm in D5W 1 GM/100 ML BAG IVPB ONE (12:58)
[2017-09-15] MEDS ORDERED: Pneumococcal 23-Valent Vaccine IM ONE (13:53)
--- NOTE | 2017-09-15 15:10 | US ---
Date of service: 09/15/2017 HISTORY: thrombocytopenia, elevated LFTs COMPARISON: None. TECHNIQUE: Sonographic evaluation of the abdomen. FINDINGS: LIVER: Measures 18.6 in length. Increased echogenicity of the liver parenchyma. No mass. No intrahepatic bile duct dilatation. GALLBLADDER: Unremarkable. No gallstones. COMMON BILE DUCT: Measures 7 mm in transverse dimension. No stones. No dilatation. PANCREAS: Unremarkable as visualized. No mass. No ductal dilatation. RIGHT KIDNEY: Measures 10.5 x 3.5 x 5.2cm. Normal echogenicity. No calculus, mass, or hydronephrosis. LEFT KIDNEY: Measures 9.1 x 4.7 x 5.1cm. Normal echogenicity. No calculus, mass, or hydronephrosis. SPLEEN: Normal in size and contour. No mass. 7.8 x 3.0 x 2.8 cm AORTA: No aneurysmal dilatation. IVC: Unremarkable. OTHER FINDINGS: None . IMPRESSION: Fatty infiltration of liver
[2017-09-15 18:10] LABS: HEPATITIS B SURFACE AG Negative (NEGATIVE)
[2017-09-15 18:16] LABS: HEPATITIS A IGM NEGATIVE (NEGATIVE); HEPATITIS B CORE AB NEGATIVE (NEGATIVE)
[2017-09-15 18:28] LABS: HEPATITIS C ANTIBODY NEGATIVE (NEGATIVE)
--- NOTE | 2017-09-15 20:54 | CARD ---
APPROVED REPORT Date of service: 09/15/2017 EKG Measurement Heart [id number] MA [id number] <Conclusion> Sinus rhythm with short MA ST abnormality, possible digitalis effect Abnormal ECG
[2017-09-16 06:03] LABS: BASO # 0.02 K/mm3 (0.0-2.0); BASO % 0.6 % (0.0-3.0); EOS # 0.1 (0.0-0.7); EOS % 3.2 % (1.5-5.0); GRAN # 2.14 (1.4-6.5); GRAN % 62.9 % (50.0-68.0); HEMOGLOBIN 11.7 g/dL (12.0-16.0); LYMPH # 0.7 (1.2-3.4); LYMPH % 21.8 % (22.0-35.0); MEAN CELL VOLUME 93.4 fl (80.0-105.0); MEAN CORPUSCULAR HEMOGLOBIN 30.8 pg (25.0-35.0); MEAN PLATELET VOLUME 11.3 fl (7.0-11.0); MONO # 0.4 (0.1-0.6); MONO % 11.5 % (1.0-6.0); RED CELL DISTRIBUTION WIDTH 17.2 % (11.5-14.5); WHITE BLOOD COUNT 3.4 10^3/ul (4.5-11.0)
[2017-09-16 06:24] LABS: PLATELET COUNT 46 10^3/uL (120.0-450.0)
[2017-09-16 06:25] LABS: ALB/GLOB RATIO 1.2 (1.1-1.8); ALBUMIN 3.7 g/dL (3.0-4.8); ALT/SGPT 193 U/L (7-56); AST/SGOT 609 U/L (14-36); BLOOD UREA NITROGEN 4 mg/dL (7-21); CALCIUM 8.8 mg/dL (8.4-10.5); GFR AFRICAN-AMERICAN > 60; GFR NON-AFRICAN AMERICAN > 60
[2017-09-16] MEDS: Multivitamin With Minerals Tab PO SCH (08:59)
--- NOTE | 2017-09-16 12:00 | CP.PCM.PN ---
<Madhu Ramirez - Last Filed: 09/16/17 11:53> Subjective - Date & Time of Evaluation Date of Evaluation: 09/16/17 Time of Evaluation: 11:55 - Subjective Subjective: Madhu Ramirez DO PGY1 - Internal Medicine Temporary Receptionist - Hospital Progress Note Pt. was seen and examined this morning at bedside with use of [employer]. Pt. reported headache overnight however feels improved. Still having complaints of tremors. No nausea vomiting, dizziness, or visual changes reported. 12 system ROS otherwise negative. Objective - Vital Signs/Intake and Output Vital Signs (last 24 hours): Temp Pulse Resp BP Pulse Ox 98.3 F 92 H 20 151/101 H 98 09/16/17 07:46 09/16/17 07:46 09/16/17 07:46 09/16/17 07:46 09/16/17 07:46 Intake and Output: 09/16/17 09/16/17 06:59 18:59 Intake Total 1180 Balance 1180 - Medications Medications: Current Medications Folic Acid (Folic Acid) 1 mg PO DAILY [facility] Last Admin: 09/16/17 09:32 Dose: 1 mg Potassium Chloride 20 meq/ (Sodium Chloride) 1,010 mls @ 100 mls/hr IV .Q10H6M [facility] Last Admin: 09/16/17 00:18 Dose: 100 mls/hr Lorazepam (Ativan) 2 mg IVP Q6H PRN; Protocol PRN Reason: Withdrawal Lorazepam (Ativan) 2 mg IVP Q8H [facility] PRN Reason: Protocol Stop: 09/16/17 12:00 Last Admin: 09/16/17 09:32 Dose: 2 mg Multivitamins/Minerals (Therapeutic-M Tab) 1 tab PO 0800 [facility] Last Admin: 09/16/17 08:59 Dose: 1 tab Thiamine HCl (Vitamin B1 Tab) 100 mg PO DAILY [facility] Last Admin: 09/16/17 09:33 Dose: 100 mg - Labs Labs: 09/16/17 05:00 09/16/17 05:00 PT 11.4 SECONDS (9.4-12.5) 09/14/17 21:50 INR 1.00 09/14/17 21:50 Physical Exam - Constitutional Appears: Non-toxic, Tremulous - Head Exam Additional comments: Traumatic injury to R upper forehead; currently dressed / bandaged - Eye Exam Eye Exam: EOMI, PERRL. absent: Scleral icterus - ENT Exam ENT Exam: Mucous Membranes Dry - Respiratory Exam Respiratory Exam: Clear to Auscultation Bilateral, NORMAL BREATHING PATTERN. absent: Rales, Rhonchi, Wheezes - Cardiovascular Exam Cardiovascular Exam: REGULAR RHYTHM, RRR, +S1, +S2. absent: Systolic Murmur - GI/Abdominal Exam GI & Abdominal Exam: Normal Bowel Sounds, Soft - Extremities Exam Extremities exam: Positive for: pedal pulses present (2+ DP/TP BL ). Negative for: pedal edema - Back Exam Back exam: absent: CVA tenderness (L), CVA tenderness (R) - Neurological Exam Additional comments: Tremulous upper extremities; No flapping asterixis - Psychiatric Exam Psychiatric exam: Agitated, Normal Affect - Skin Skin Exam: Dry, Warm Additional comments: Small scabs appreciated throughout upper extremity and lower extremity BL Hirsutism on lower extremiteis at level of knee and fore arms BL Abrasions on Feet BL Nail fungus on all toe-nails BL Assessment and Plan - Assessment and Plan (Free Text) Assessment: 47F w/ a PMH significant for EtOH abuse, depression, and transaminitis presented to [facility] [place] [facility] on 09/14/17 via EMS for EtOH intoxication s/p fall. EtOH Intoxication/ Withdrawal - Still appears tremulous; no seizure activity reported overnight - CIWA this AM 5 - NS IVF w/ K+ supplement - Ativan 2mg Q8H [facility]; - Ativan 2mg Q6H PRN - No librium due to transaminitis - C/w Thiamine, Folic acid, and Multivitamin Transaminitis - Patient w/ known history of transaminitis; LFTs still elevated 609/193 - Most likely 2/2 EtOH abuse, however cannot exlcude hepatitis vs salicylate / acetaminophen tox - Abdominal US- Liver: Increased echogenicity/ fatty infiltration; Spleen: Normal - Hepatitis panel negative - Avoid hepatotoxic medications - GI consulted, appreciate reccs Thrombocytopenia - Patient has demonstrated prior history of thrombocytopenia - Most likely due to hepatic insult vs bone marrow suppression in setting of EtOH abuse - Spleen wnl on US; - Will follow platelet counts and transfuse when necessary - Hold thrombocytopenic medications - Hold antiplatelet rx/ DVT prophylaxis Head Trauma -Dressing applied to contusion -No intracranial abnormality on CT head Hypomagnesmia - resolved GI/DVT - Pepcid / SCD Dispo:Admit to Obs for management of EtOH withdrawal, and workup of transaminitis/thrombocytopenia Patient seen, examined, and discussed w/ attending physician Glen Davidson DO PGY1 Iternal Medicine Temporary Receptionist - Pager [phone] <Glen Ferguson - Last Filed: 09/16/17 14:03> Objective - Vital Signs/Intake and Output Vital Signs (last 24 hours): Temp Pulse Resp BP Pulse Ox 98.3 F 92 H 20 151/101 H 98 09/16/17 07:46 09/16/17 07:46 09/16/17 07:46 09/16/17 07:46 09/16/17 07:46 Intake and Output: 09/16/17 09/16/17 06:59 18:59 Intake Total 1180 Balance 1180 - Medications Medications: Current Medications Folic Acid (Folic Acid) 1 mg PO DAILY [facility] Last Admin: 09/16/17 09:32 Dose: 1 mg Potassium Chloride 20 meq/ (Sodium Chloride) 1,010 mls @ 100 mls/hr IV .Q10H6M [facility] Last Admin: 09/16/17 00:18 Dose: 100 mls/hr Lorazepam (Ativan) 2 mg IVP Q6H PRN; Protocol PRN Reason: Withdrawal Lorazepam (Ativan) 2 mg IVP Q8H [facility] PRN Reason: Protocol Last Admin: 09/16/17 13:06 Dose: Not Given Multivitamins/Minerals (Therapeutic-M Tab) 1 tab PO 0800 [facility] Last Admin: 09/16/17 08:59 Dose: 1 tab Ondansetron HCl (Zofran Inj) 4 mg IVP Q4H PRN PRN Reason: Nausea/Vomiting Pantoprazole Sodium (Protonix Ec Tab) 40 mg PO 0600 [facility] Thiamine HCl (Vitamin B1 Tab) 100 mg PO DAILY [facility] Last Admin: 09/16/17 09:33 Dose: 100 mg - Labs Labs: 09/16/17 05:00 09/16/17 05:00 PT 11.4 SECONDS (9.4-12.5) 09/14/17 21:50 INR 1.00 09/14/17 21:50 Attending/Attestation - Attestation I have personally seen and examined this patient.: Yes I have fully participated in the care of the patient.: Yes I have reviewed all pertinent clinical information, including history, physical exam and plan: Yes Notes (Text): 09/16/17 13:59 Medical record note made by the resident after discussion with my direction and input after the patient was personally seen and examined by me. I have reviewed the chart and agree that the record accurately reflects by personal performance of the history, physical exam, data review, and medical decision-making, in the course for the patient. I have also personally directed the plan of care. 47 yrs old female with PMH of alcohol abuse and depression was admitted with alcohol i withdrawal, elevated LFT and thrombocytopenia due to alcohol abuse.CT scan of head is negative.There is no focal deficit. Alcohol withdrawals are improving,Continue CIWA protocol. Elevated LFT secondary to alcohol abuse are slowly improving. Thrombocytopenia is stable.There is no bleeding.There is no splenomegaly on abdominal USG She has been advised to stop drinking Alcohol. Management plan was discussed in detail with patient Education was provided. 09/16/17 14:01
[2017-09-17] MEDS: Pantoprazole 40 mg EC Tab PO SCH (05:33)
[2017-09-17 06:55] LABS: BASO # 0.02 K/mm3 (0.0-2.0); BASO % 0.5 % (0.0-3.0); EOS # 0.2 (0.0-0.7); EOS % 4.3 % (1.5-5.0); GRAN # 2.16 (1.4-6.5); GRAN % 58.8 % (50.0-68.0); HEMOGLOBIN 10.7 g/dL (12.0-16.0); LYMPH # 0.9 (1.2-3.4); LYMPH % 24.7 % (22.0-35.0); MEAN CELL VOLUME 94.3 fl (80.0-105.0); MEAN CORPUSCULAR HEMOGLOBIN 30.7 pg (25.0-35.0); MEAN CORPUSCULAR HGB CONC 32.5 g/dl (31.0-37.0); MEAN PLATELET VOLUME 12.1 fl (7.0-11.0); MONO # 0.4 (0.1-0.6); MONO % 11.7 % (1.0-6.0); RBC 3.49 10^6/uL (3.5-6.1); WHITE BLOOD COUNT 3.7 10^3/ul (4.5-11.0)
[2017-09-17 07:25] LABS: ALB/GLOB RATIO 1.2 (1.1-1.8); ALBUMIN 3.7 g/dL (3.0-4.8); ALT/SGPT 197 U/L (7-56); AST/SGOT 507 U/L (14-36); BLOOD UREA NITROGEN 3 mg/dL (7-21); GFR AFRICAN-AMERICAN > 60; GFR NON-AFRICAN AMERICAN > 60
[2017-09-17] MEDS: Multivitamin With Minerals Tab PO SCH (09:17)
--- NOTE | 2017-09-17 09:38 | CP.PCM.PN ---
Subjective - Date & Time of Evaluation Date of Evaluation: 09/17/17 Time of Evaluation: 09:38 - Subjective Subjective: Madhu James PGY1- Internal Medicine Testing Manager - Hospital Progress Note Call made in afternoon day prior stating patient is more agitated; resident reassesed patient and medication changes made. Pt seen this am at bedside, she appears less tremulous/ agitated. states she feels better today than day better. No complaints of N/V; reports some abdominal pain w/ eating Pt. notified fo elevated LFTs and low platelets on admission are due to alcohol use. She was notified that she needs to stop drinking alcohol in order to improve her liver function. Notified that if she continues to drink she will not improve her health. Objective - Vital Signs/Intake and Output Vital Signs (last 24 hours): Temp Pulse Resp BP Pulse Ox 98 F 72 18 129/86 98 09/17/17 07:50 09/17/17 07:50 09/17/17 07:50 09/17/17 07:50 09/17/17 07:50 Intake and Output: 09/17/17 09/17/17 06:59 18:59 Intake Total 1380 Output Total 750 Balance 630 - Medications Medications: Current Medications Folic Acid (Folic Acid) 1 mg PO DAILY [facility] Last Admin: 09/17/17 09:17 Dose: 1 mg Potassium Chloride 20 meq/ (Sodium Chloride) 1,010 mls @ 100 mls/hr IV .Q10H6M [facility] Last Admin: 09/17/17 02:33 Dose: 100 mls/hr Lorazepam (Ativan) 2 mg IVP Q2H PRN; Protocol PRN Reason: Anxiety Lorazepam (Ativan) 1 mg IVP Q4H [facility] PRN Reason: Protocol Multivitamins/Minerals (Therapeutic-M Tab) 1 tab PO 0800 [facility] Last Admin: 09/17/17 09:17 Dose: 1 tab Ondansetron HCl (Zofran Inj) 4 mg IVP Q4H PRN PRN Reason: Nausea/Vomiting Pantoprazole Sodium (Protonix Ec Tab) 40 mg PO 0600 [facility] Last Admin: 09/17/17 05:33 Dose: 40 mg Thiamine HCl (Vitamin B1 Tab) 100 mg PO DAILY [facility] Last Admin: 09/17/17 09:17 Dose: 100 mg - Labs Labs: 09/17/17 06:00 09/17/17 06:00 PT 11.4 SECONDS (9.4-12.5) 09/14/17 21:50 INR 1.00 09/14/17 21:50 Physical Exam - Constitutional Appears: Non-toxic, Tremulous, Much more active; improved - Head Exam Additional comments: Traumatic injury to R upper forehead; currently dressed / bandaged - Eye Exam Eye Exam: EOMI, PERRL. absent: Scleral icterus - ENT Exam ENT Exam: Mucous Membranes Dry - Respiratory Exam Respiratory Exam: Clear to Auscultation Bilateral, NORMAL BREATHING PATTERN. absent: Rales, Rhonchi, Wheezes - Cardiovascular Exam Cardiovascular Exam: REGULAR RHYTHM, RRR, +S1, +S2. absent: Systolic Murmur - GI/Abdominal Exam GI & Abdominal Exam: Normal Bowel Sounds, Soft - Extremities Exam Extremities exam: Positive for: pedal pulses present (2+ DP/TP BL ). Negative for: pedal edema - Back Exam Back exam: absent: CVA tenderness (L), CVA tenderness (R) - Neurological Exam Additional comments: Tremulous upper extremities; No flapping asterixis However tremors are not as significant at rest relative to examinations prior - Psychiatric Exam Psychiatric exam: Agitated, Normal Affect - Skin Skin Exam: Dry, Warm Additional comments: Small scabs appreciated throughout upper extremity and lower extremity BL Hirsutism on lower extremiteis at level of knee and fore arms BL Abrasions on Feet BL Nail fungus on all toe-nails BL Assessment and Plan - Assessment and Plan (Free Text) Assessment: 47F w/ a PMH significant for EtOH abuse, depression, and transaminitis presented to [facility] [place] [facility] on 09/14/17 via EMS for EtOH intoxication s/p fall. EtOH Intoxication/ Withdrawal - Still tremulous however much more improved today - CIWA this AM 5 - NS IVF w/ K+ supplement - Ativan 1mg Q4H [facility]; - Ativan 2mg Q2H PRN - No librium due to transaminitis - C/w Thiamine, Folic acid, and Multivitamin - Pt. complaining of some gait instability; will get PT Eval Transaminitis - Patient w/ known history of transaminitis; LFTs still elevated 507/197 - Most likely 2/2 EtOH abuse, however cannot exlcude hepatitis vs salicylate / acetaminophen tox - Abdominal US- Liver: Increased echogenicity/ fatty infiltration; Spleen: Normal - Hepatitis panel negative - Avoid hepatotoxic medications - GI consulted, appreciate reccs Thrombocytopenia - Patient has demonstrated prior history of thrombocytopenia - Most likely due to hepatic insult vs bone marrow suppression in setting of EtOH abuse - Spleen wnl on US; - Will follow platelet counts and transfuse when necessary - Hold thrombocytopenic medications - Hold antiplatelet rx/ DVT prophylaxis Head Trauma -Dressing applied to contusion -No intracranial abnormality on CT head Hypomagnesmia - resolved GI/DVT - Pepcid / SCD Dispo:Admit to intpt for management of EtOH withdrawal, and workup of transaminitis/thrombocytopenia ; Placement pending pt eval Patient seen, examined, and discussed w/ attending physician Dr. Ferguson, Glen ware DO PGY1 Iternal Medicine Testing Manager - Pager [phone]
[2017-09-17 18:35] VITALS: RESP 18
[2017-09-18] MEDS: Pantoprazole 40 mg EC Tab PO SCH (05:53)
[2017-09-18 06:47] LABS: BASO # 0.01 K/mm3 (0.0-2.0); BASO % 0.2 % (0.0-3.0); EOS # 0.2 (0.0-0.7); EOS % 4.7 % (1.5-5.0); GRAN # 2.34 (1.4-6.5); GRAN % 57.4 % (50.0-68.0); HEMOGLOBIN 11.2 g/dL (12.0-16.0); LYMPH % 24.5 % (22.0-35.0); MEAN CELL VOLUME 94.8 fl (80.0-105.0); MEAN CORPUSCULAR HEMOGLOBIN 30.9 pg (25.0-35.0); MEAN CORPUSCULAR HGB CONC 32.7 g/dl (31.0-37.0); MEAN PLATELET VOLUME 12.1 fl (7.0-11.0); MONO # 0.5 (0.1-0.6); MONO % 13.2 % (1.0-6.0); RBC 3.62 10^6/uL (3.5-6.1); WHITE BLOOD COUNT 4.1 10^3/ul (4.5-11.0)
[2017-09-18 07:13] LABS: ALB/GLOB RATIO 1.2 (1.1-1.8); ALBUMIN 3.8 g/dL (3.0-4.8); ALT/SGPT 203 U/L (7-56); AST/SGOT 347 U/L (14-36); BLOOD UREA NITROGEN 4 mg/dL (7-21); CALCIUM 9.2 mg/dL (8.4-10.5); GFR AFRICAN-AMERICAN > 60; GFR NON-AFRICAN AMERICAN > 60
[2017-09-18] MEDS ORDERED: Magnesium 2 gm/50 ml NS 2 GM/50 ML BAG IVPB ONE (08:54)
[2017-09-18] MEDS: Multivitamin With Minerals Tab PO SCH (09:40)
[2017-09-18 14:12] VITALS: BP 125/87; PULSE 91; TEMP 98.8; O2SAT 98
--- NOTE | 2017-09-18 19:09 | CP.PCM.DIS ---
<Ronald Castellanos - Last Filed: 09/19/17 13:08> Provider - Provider Date of Admission: 09/16/17 07:16 Attending physician: Yesika Hart MD Time Spent in preparation of Discharge (in minutes): 45 Diagnosis - Discharge Diagnosis (1) Alcohol withdrawal Status: Resolved Priority: Medium (2) Alcoholism /alcohol abuse Status: Chronic Priority: Medium (3) Scalp bruising Status: Resolved Priority: Medium Comment: s/p fall (4) Elevated LFTs Status: Chronic Priority: Medium (5) Fall Status: Resolved Priority: Medium Hospital Course - Lab Results Lab Results: Most Recent Lab Values WBC 4.1 10^3/ul (4.5-11.0) L 09/18/17 06:15 RBC 3.62 10^6/uL (3.5-6.1) 09/18/17 06:15 Hgb 11.2 g/dL (12.0-16.0) L 09/18/17 06:15 Hct 34.3 % (36.0-48.0) L 09/18/17 06:15 MCV 94.8 fl (80.0-105.0) 09/18/17 06:15 MCH 30.9 pg (25.0-35.0) 09/18/17 06:15 MCHC 32.7 g/dl (31.0-37.0) 09/18/17 06:15 RDW 17.0 % (11.5-14.5) H 09/18/17 06:15 Plt Count 76 10^3/uL (120.0-450.0) L 09/18/17 06:15 MPV 12.1 fl (7.0-11.0) H 09/18/17 06:15 Gran % 57.4 % (50.0-68.0) 09/18/17 06:15 Lymph % (Auto) 24.5 % (22.0-35.0) 09/18/17 06:15 Ida % (Auto) 13.2 % (1.0-6.0) H 09/18/17 06:15 Eos % (Auto) 4.7 % (1.5-5.0) 09/18/17 06:15 Baso % (Auto) 0.2 % (0.0-3.0) 09/18/17 06:15 Gran # 2.34 (1.4-6.5) 09/18/17 06:15 Lymph # (Auto) 1.0 (1.2-3.4) L 09/18/17 06:15 Ida # (Auto) 0.5 (0.1-0.6) 09/18/17 06:15 Eos # (Auto) 0.2 (0.0-0.7) 09/18/17 06:15 Baso # (Auto) 0.01 K/mm3 (0.0-2.0) 09/18/17 06:15 PT 11.4 SECONDS (9.4-12.5) 09/14/17 21:50 INR 1.00 09/14/17 21:50 Sodium 142 mmol/L (132-148) 09/18/17 06:15 Potassium 4.5 mmol/L (3.6-5.0) 09/18/17 06:15 Chloride 107 mmol/L (98-107) 09/18/17 06:15 Carbon Dioxide 25 mmol/L (21-33) 09/18/17 06:15 Anion Gap 15 (10-20) 09/18/17 06:15 BUN 4 mg/dL (7-21) L 09/18/17 06:15 Creatinine 0.4 mg/dl (0.7-1.2) L 09/18/17 06:15 Est GFR ( Amer) > 60 09/18/17 06:15 Est GFR (Non-Af Amer) > 60 09/18/17 06:15 Random Glucose 116 mg/dL (70-110) H 09/18/17 06:15 Calcium 9.2 mg/dL (8.4-10.5) 09/18/17 06:15 Phosphorus 4.4 mg/dL (2.5-4.5) 09/18/17 06:15 Magnesium 1.6 mg/dL (1.7-2.2) L 09/18/17 06:15 Total Bilirubin 1.2 mg/dL (0.2-1.3) 09/18/17 06:15 AST 347 U/L (14-36) H D 09/18/17 06:15 ALT 203 U/L (7-56) H 09/18/17 06:15 Alkaline Phosphatase 150 U/L (38-126) H 09/18/17 06:15 Ammonia 17 umol/L (9-33) 09/15/17 09:20 Lactate Dehydrogenase 1025 U/L (333-699) H 09/14/17 21:50 Total Creatine Kinase 347 U/L (35-230) H 09/14/17 21:50 CK-MB (CK-2) 0.9 ng/mL (0.0-3.6) 09/14/17 21:50 CK-MB (CK-2) % Cancelled 09/14/17 21:50 Troponin I < 0.01 ng/mL 09/14/17 21:50 Total Protein 7.0 g/dL (5.8-8.3) 09/18/17 06:15 Albumin 3.8 g/dL (3.0-4.8) 09/18/17 06:15 Globulin 3.2 gm/dL 09/18/17 06:15 Albumin/Globulin Ratio 1.2 (1.1-1.8) 09/18/17 06:15 Urine Color Yellow (YELLOW) 09/14/17 22:09 Urine Appearance Clear (CLEAR) 09/14/17 22:09 Urine pH 6.5 (4.7-8.0) 09/14/17 22:09 Ur Specific Register <= 1.005 (1.005-1.035) 09/14/17 22:09 Urine Protein Negative mg/dL (<30 mg/dL) 09/14/17 22:09 Urine Glucose (UA) Negative mg/dL (NEGATIVE) 09/14/17 22:09 Urine Ketones Negative mg/dL (NEGATIVE) 09/14/17 22:09 Urine Blood Trace-lysed (NEGATIVE) H 09/14/17 22:09 Urine Nitrate Negative (NEGATIVE) 09/14/17 22:09 Urine Bilirubin Negative (NEGATIVE) 09/14/17 22:09 Urine Urobilinogen 0.2 E.U./dL (<1 E.U./dL) 09/14/17 22:09 Ur Leukocyte Esterase Negative Boni/uL (NEGATIVE) 09/14/17 22:09 Urine RBC 0 - 2 /hpf (0-2) 09/14/17 22:09 Urine WBC 0 - 2 /hpf (0-6) 09/14/17 22:09 Ur Epithelial Cells 0 - 2 /hpf (0-5) 09/14/17 22:09 Urine HCG, Qual Negative (NEGATIVE) 09/14/17 22:09 Salicylates < 1 mg/dL (2.0-20.0) L 09/15/17 09:20 Urine Opiates Screen Negative (NEGATIVE) 09/14/17 22:09 Urine Methadone Screen Negative (NEGATIVE) 09/14/17 22:09 Acetaminophen < 10.0 ug/ml (10.0-20.0) L 09/15/17 09:20 Ur Barbiturates Screen Negative (NEGATIVE) 09/14/17 22:09 Ur Phencyclidine Scrn Negative (NEGATIVE) 09/14/17 22:09 Ur Amphetamines Screen Negative (NEGATIVE) 09/14/17 22:09 U Benzodiazepines Scrn Negative (NEGATIVE) 09/14/17 22:09 U Oth Cocaine Metabols Negative (NEGATIVE) 09/14/17 22:09 U Cannabinoids Screen Negative (NEGATIVE) 09/14/17 22:09 Alcohol, Quantitative 423 mg/dL (0-10) H* 09/14/17 21:50 IgG 1096.8 mg/dL (700.0-1600.0) 09/15/17 09:20 Anti-Mitochondrial Ab Negative (Negative) 09/16/17 05:30 Hepatitis A IgM Ab Negative (NEGATIVE) 09/15/17 09:20 Hep Bs Antigen Negative (NEGATIVE) 09/15/17 09:20 Hep B Core IgM Ab Negative (NEGATIVE) 09/15/17 09:20 Hepatitis C Antibody Negative (NEGATIVE) 09/15/17 09:20 - Hospital Course Hospital Course: Ms. Alamo is a 47 year old female with a PMH significant for EtOH abuse, depression, and transaminitis presented to [facility] ED on 09/14/17 via EMS for EtOH intoxication s/p fall. Patient was treated with folic acid, thiamine, ativan, multivitamins, zofran, potassium, and protonix. During the course of her hospital stay, patient got an EKG that showed normal sinus rhythm at 85 bpm, with short TN interval at 106, and no ischemia. Chest xray showed no acute disease. Head CT showed no acute intracranial hemorrhage. Cervical spine CT showed no acute disease. Abdomen ultrasound showed fatty inflitration of the liver. Gastroenterology (Dr. Somers) was consulted and recommended continued IV hydration and supportive care, with no further GI interventions at this time. Patient was instructed to resume all home medications as previously prescribed. Patient was educated on the correct way to take medications and was instructed to follow up with her scheduled appointment at [facility] on September 28 at 3PM. Patient was instructed to stop further alcohol use and educated that any alcohol intake is hazardous to her lona. Patient was instructed to resume activities as tolerated and eat a healthy diet. Patient further informed to return to the ED for worsening or newly concerning symptoms.Patient is now medically stable for discharge. Manager Functional #[id number] Discharge Exam - Head Exam Head Exam: ATRAUMATIC, NORMAL INSPECTION, NORMOCEPHALIC - Eye Exam Eye Exam: Normal appearance - ENT Exam ENT Exam: Mucous Membranes Moist - Respiratory Exam Respiratory Exam: Clear to PA & Lateral. absent: Rales, Rhonchi, Wheezes - Cardiovascular Exam Cardiovascular Exam: REGULAR RHYTHM, +S1, +S2. absent: Gallop, Rubs, Systolic Murmur - GI/Abdominal Exam GI & Abdominal Exam: Normal Bowel Sounds, Soft. absent: Tenderness - Extremities Exam Extremities exam: normal inspection Additional comments: no calf tenderness or pedal edema - Neurological Exam Neurological exam: Alert, Normal Gait, Oriented x3 - Psychiatric Exam Psychiatric exam: Normal Affect, Normal Mood - Skin Skin Exam: Dry, Intact, Warm Discharge Plan - Discharge Medications Prescriptions: Folic Acid 1 mg PO DAILY #30 tab Multivitamin Therapeutic Tab [Thera Tab] 1 tab PO 0800 #30 tab Mupirocin 2% Ointment [Bactroban Ointment] 1 appl TP 5XD 10 Days #1 tube Thiamine [Vitamin B1] 50 mg PO DAILY #30 tab - Follow Up Plan Condition: GOOD Disposition: HOME/ ROUTINE Instructions: Contusion (DC), Preventing Falls, Alcohol Abuse and Alcoholism ( DC), Why Vaccines Are Important for Everyone Additional Instructions: 1. Please resume all home medications as previously prescribed 2. Please follow up at [facility] on September 28 at 3PM 3. Please avoid further alcohol use, any intake will be hazardous to your health 4. Return to the nearest emergency room if you experience worsening or newly concerning symptoms Referrals: [facility] at [facility] [Outside] <Yesika Hart - Last Filed: 09/19/17 13:56> Provider - Provider Date of Admission: 09/16/17 07:16 Attending physician: Yesika Hart MD Hospital Course - Lab Results Lab Results: Most Recent Lab Values WBC 4.1 10^3/ul (4.5-11.0) L 09/18/17 06:15 RBC 3.62 10^6/uL (3.5-6.1) 09/18/17 06:15 Hgb 11.2 g/dL (12.0-16.0) L 09/18/17 06:15 Hct 34.3 % (36.0-48.0) L 09/18/17 06:15 MCV 94.8 fl (80.0-105.0) 09/18/17 06:15 MCH 30.9 pg (25.0-35.0) 09/18/17 06:15 MCHC 32.7 g/dl (31.0-37.0) 09/18/17 06:15 RDW 17.0 % (11.5-14.5) H 09/18/17 06:15 Plt Count 76 10^3/uL (120.0-450.0) L 09/18/17 06:15 MPV 12.1 fl (7.0-11.0) H 09/18/17 06:15 Gran % 57.4 % (50.0-68.0) 09/18/17 06:15 Lymph % (Auto) 24.5 % (22.0-35.0) 09/18/17 06:15 Ida % (Auto) 13.2 % (1.0-6.0) H 09/18/17 06:15 Eos % (Auto) 4.7 % (1.5-5.0) 09/18/17 06:15 Baso % (Auto) 0.2 % (0.0-3.0) 09/18/17 06:15 Gran # 2.34 (1.4-6.5) 09/18/17 06:15 Lymph # (Auto) 1.0 (1.2-3.4) L 09/18/17 06:15 Ida # (Auto) 0.5 (0.1-0.6) 09/18/17 06:15 Eos # (Auto) 0.2 (0.0-0.7) 09/18/17 06:15 Baso # (Auto) 0.01 K/mm3 (0.0-2.0) 09/18/17 06:15 PT 11.4 SECONDS (9.4-12.5) 09/14/17 21:50 INR 1.00 09/14/17 21:50 Sodium 142 mmol/L (132-148) 09/18/17 06:15 Potassium 4.5 mmol/L (3.6-5.0) 09/18/17 06:15 Chloride 107 mmol/L (98-107) 09/18/17 06:15 Carbon Dioxide 25 mmol/L (21-33) 09/18/17 06:15 Anion Gap 15 (10-20) 09/18/17 06:15 BUN 4 mg/dL (7-21) L 09/18/17 06:15 Creatinine 0.4 mg/dl (0.7-1.2) L 09/18/17 06:15 Est GFR ( Amer) > 60 09/18/17 06:15 Est GFR (Non-Af Amer) > 60 09/18/17 06:15 Random Glucose 116 mg/dL (70-110) H 09/18/17 06:15 Calcium 9.2 mg/dL (8.4-10.5) 09/18/17 06:15 Phosphorus 4.4 mg/dL (2.5-4.5) 09/18/17 06:15 Magnesium 1.6 mg/dL (1.7-2.2) L 09/18/17 06:15 Total Bilirubin 1.2 mg/dL (0.2-1.3) 09/18/17 06:15 AST 347 U/L (14-36) H D 09/18/17 06:15 ALT 203 U/L (7-56) H 09/18/17 06:15 Alkaline Phosphatase 150 U/L (38-126) H 09/18/17 06:15 Ammonia 17 umol/L (9-33) 09/15/17 09:20 Lactate Dehydrogenase 1025 U/L (333-699) H 09/14/17 21:50 Total Creatine Kinase 347 U/L (35-230) H 09/14/17 21:50 CK-MB (CK-2) 0.9 ng/mL (0.0-3.6) 09/14/17 21:50 CK-MB (CK-2) % Cancelled 09/14/17 21:50 Troponin I < 0.01 ng/mL 09/14/17 21:50 Total Protein 7.0 g/dL (5.8-8.3) 09/18/17 06:15 Albumin 3.8 g/dL (3.0-4.8) 09/18/17 06:15 Globulin 3.2 gm/dL 09/18/17 06:15 Albumin/Globulin Ratio 1.2 (1.1-1.8) 09/18/17 06:15 Ceruloplasmin 25 mg/dL (18-53) 09/16/17 05:30 Urine Color Yellow (YELLOW) 09/14/17 22:09 Urine Appearance Clear (CLEAR) 09/14/17 22:09 Urine pH 6.5 (4.7-8.0) 09/14/17 22:09 Ur Specific Register <= 1.005 (1.005-1.035) 09/14/17 22:09 Urine Protein Negative mg/dL (<30 mg/dL) 09/14/17 22:09 Urine Glucose (UA) Negative mg/dL (NEGATIVE) 09/14/17 22:09 Urine Ketones Negative mg/dL (NEGATIVE) 09/14/17 22:09 Urine Blood Trace-lysed (NEGATIVE) H 09/14/17 22:09 Urine Nitrate Negative (NEGATIVE) 09/14/17 22:09 Urine Bilirubin Negative (NEGATIVE) 09/14/17 22:09 Urine Urobilinogen 0.2 E.U./dL (<1 E.U./dL) 09/14/17 22:09 Ur Leukocyte Esterase Negative Boni/uL (NEGATIVE) 09/14/17 22:09 Urine RBC 0 - 2 /hpf (0-2) 09/14/17 22:09 Urine WBC 0 - 2 /hpf (0-6) 09/14/17 22:09 Ur Epithelial Cells 0 - 2 /hpf (0-5) 09/14/17 22:09 Urine HCG, Qual Negative (NEGATIVE) 09/14/17 22:09 Salicylates < 1 mg/dL (2.0-20.0) L 09/15/17 09:20 Urine Opiates Screen Negative (NEGATIVE) 09/14/17 22:09 Urine Methadone Screen Negative (NEGATIVE) 09/14/17 22:09 Acetaminophen < 10.0 ug/ml (10.0-20.0) L 09/15/17 09:20 Ur Barbiturates Screen Negative (NEGATIVE) 09/14/17 22:09 Ur Phencyclidine Scrn Negative (NEGATIVE) 09/14/17 22:09 Ur Amphetamines Screen Negative (NEGATIVE) 09/14/17 22:09 U Benzodiazepines Scrn Negative (NEGATIVE) 09/14/17 22:09 U Oth Cocaine Metabols Negative (NEGATIVE) 09/14/17 22:09 U Cannabinoids Screen Negative (NEGATIVE) 09/14/17 22:09 Alcohol, Quantitative 423 mg/dL (0-10) H* 09/14/17 21:50 IgG 1096.8 mg/dL (700.0-1600.0) 09/15/17 09:20 Anti-Mitochondrial Ab Negative (Negative) 09/16/17 05:30 Liver/Kid Microsomes Ab <=20.0 U (<=20.0) 09/16/17 05:30 Hepatitis A IgM Ab Negative (NEGATIVE) 09/15/17 09:20 Hep Bs Antigen Negative (NEGATIVE) 09/15/17 09:20 Hep B Core IgM Ab Negative (NEGATIVE) 09/15/17 09:20 Hepatitis C Antibody Negative (NEGATIVE) 09/15/17 09:20 Attending/Attestation - Attestation I have personally seen and examined this patient.: Yes I have fully participated in the care of the patient.: Yes I have reviewed all pertinent clinical information, including history, physical exam and plan: Yes Notes (Text): 09/18/17 47 year old female with past medical history of alcohol abuse who presented with alcohol intoxication and fall. CT head and cervical spine were negative for acute findings. She was started on ativan gabriella/prn taper for alcohol withdrawal symptoms. LFTs were elevated likely secondary to chronic ETOH abuse and fatty liver as seen on US. Patient was seen by PT and ambulated. Overall her symptoms improved and her ativan was tapered. She was counselled on alcohol abstinence. Patient is discharged to follow up at [facility]. Yesika Hart MD Hospitalist.
[2017-09-18 20:09] LABS: CERULOPLASMIN 25 mg/dL (18-53)
== END 2017-09-18 17:23 | disposition home or self-care (01) | DRG 897 ==
LOC: ED 20:39 → ERH 09-15 06:35 → 5RNO 09-15 09:06 → OBSVTOIN 09-16 07:16
PROVIDERS: ADMIT Internal Medicine; ATTEND Internal Medicine
DX: F10.239 Alcohol dependence with withdrawal, unspecified (principal); D61.818 Other pancytopenia; F10.229 Alcohol dependence with intoxication, unspecified; S00.03XA Contusion of scalp, initial encounter; W19.XXXA Unspecified fall, initial encounter; E83.42 Hypomagnesemia; F17.210 Nicotine dependence, cigarettes, uncomplicated; I10 Essential (primary) hypertension; K76.0 Fatty (change of) liver, not elsewhere classified; F32.89 Other specified depressive episodes; Z80.0 Family history of malignant neoplasm of digestive organs; Z88.0 Allergy status to penicillin; R40.2412 Glasgow coma scale score 13-15, at arrival to emergency department; Y90.8 Blood alcohol level of 240 mg/100 ml or more